=== PATIENT | female | born 1960 | race Caucasian/White ===

== ENCOUNTER → 2020-04-12 12:23 | Outpatient (BNVA) | payer MEDICARE, MEDICAID, SELFPAY | PROVIDERS: PCP Internal Medicine; Referring Provider Internal Medicine; Visit Provider Internal Medicine Endocrinology, Diabetes & Metabolism | DX: M81.0 Age-related osteoporosis without current pathological fracture (principal); Z79.899 Other long term (current) drug therapy | CPT/HCPCS: 99212 ==

== ENCOUNTER 2020-05-04 13:10 | Outpatient (REF) | payer MEDICARE, MEDICAID, SELFPAY ==
--- NOTE | 2020-05-04 13:18 | MM_ITS ---
EXAMINATION: MM SCREENING DIGITAL BREAST TOMOSYNTHESIS, BILATERAL CLINICAL INFORMATION: Left lumpectomy for breast cancer 2006. Due for yearly. COMPARISON: Mammography: 04/29/2019, 04/27/2018, 02/25/2017 TECHNIQUE: Digital breast tomosynthesis is performed in both the craniocaudal and mediolateral oblique views along with computer-aided detection (CAD). Synthesized 2D images are generated from the tomosynthesis. Additional left exaggerated CC view is provided. FINDINGS: The breasts are heterogeneously dense, which may obscure small masses (ACR BI-RADS breast composition Category c). There are post therapy changes on left with reduced breast size and stable scarring and some benign coarse calcifications. There are background fibrocystic changes again suggested similar to prior exams. There is no significant mass or architectural abnormality or interval abnormal calcifications. No significant changes. MM/MM tomosynthesis screening BI IMPRESSION: No significant changes from prior studies. Post therapy changes on left. ASSESSMENT: BI-RADS 2: Benign RECOMMENDATION: Routine annual mammography screening. This patient's information was entered into a reminder system with a target due date for their next mammogram.
== END 2020-05-04 13:11 | disposition home or self-care (01) ==
LOC: HO.MAMMO 13:10
PROVIDERS: PCP Internal Medicine; Visit Provider Surgery
DX: Z12.31 Encounter for screening mammogram for malignant neoplasm of breast (principal)
CPT/HCPCS: 77063; 77067

== ENCOUNTER → 2020-07-11 11:17 | Outpatient (BNVA) | payer OTHER, MEDICARE, SELFPAY | PROVIDERS: PCP Internal Medicine; Visit Provider Surgery | DX: C50.919 Malignant neoplasm of unspecified site of unspecified female breast (principal) | CPT/HCPCS: 99212 ==

== ENCOUNTER 2020-10-11 12:08 | Outpatient (REF) | payer OTHER, SELFPAY | END 2020-10-11 12:09 | disposition home or self-care (01) | LOC: HO.LAB 12:08 | PROVIDERS: Absent Provider Internal Medicine; PCP Internal Medicine; Visit Provider Internal Medicine Endocrinology, Diabetes & Metabolism | DX: M81.0 Age-related osteoporosis without current pathological fracture (principal) | CPT/HCPCS: 99212 ==

== ENCOUNTER 2020-10-12 11:32 | Outpatient (REF) | payer OTHER, SELFPAY ==
[2020-10-12 12:54] LABS: Alanine Aminotransferase 44 U/L (0-31); Albumin Level 3.9 g/dL (3.5-5.0); Alkaline Phosphatase 51 U/L (39-117); Anion Gap 11 (12-20); Aspartate Amino Transferase 37 U/L (5-31); Bilirubin Direct 0.3 mg/dL (0.0-0.5); Bilirubin Total 0.6 mg/dL (0.0-1.0); Blood Urea Nitrogen 17 mg/dL (9-16); Calcium 9.3 mg/dL (8.4-10.2); Carbon Dioxide 25 mmol/L (22-29); Chloride 106 mmol/L (96-108); Cholesterol 162 mg/dL; Estimated Glomerular Filt Rate 56; Glucose Fasting 106 mg/dL (60-99); HDL Cholesterol 55 mg/dL; LDL Cholesterol Calculated 91 mg/dl; Potassium 4.3 mmol/L (3.3-5.1); Sodium 138 mmol/L (135-145); Total Protein 6.7 g/dL (6.5-8.0); Triglycerides 83 mg/dL
[2020-10-12 13:02] LABS: Thyroid Stimulating Hormone 1.23 uIU/mL (0.32-4.0)
[2020-10-12 13:34] LABS: Free T4 (Free Thyroxine) 0.83 ng/dL (0.71-1.85); Vitamin D 25-OH Total 39.9 ng/mL (>30)
[2020-10-20 06:57] LABS: N-Telopeptide 12 (see note); NTXCreaRU 89 mg/dL (20-275)
== END 2020-10-12 11:33 | disposition home or self-care (01) ==
LOC: HO.LAB 11:32
PROVIDERS: Absent Provider Internal Medicine; PCP Internal Medicine; Visit Provider Internal Medicine Endocrinology, Diabetes & Metabolism
DX: M81.0 Age-related osteoporosis without current pathological fracture (principal); E78.9 Disorder of lipoprotein metabolism, unspecified
CPT/HCPCS: 36415; 80053; 80061; 80076; 82248; 82306; 82523; 84439; 84443

== ENCOUNTER 2020-12-13 10:54 | Outpatient (REF) | payer OTHER, SELFPAY ==
[2020-12-13 11:58] LABS: Blood Urea Nitrogen 18 mg/dL (9-16); Estimated Glomerular Filt Rate > 60
== END 2020-12-13 10:55 | disposition home or self-care (01) ==
LOC: HO.MDS 10:54
PROVIDERS: PCP Internal Medicine; Visit Provider Internal Medicine Endocrinology, Diabetes & Metabolism
DX: M81.0 Age-related osteoporosis without current pathological fracture (principal)
CPT/HCPCS: 36415; 82565; 84520; 96365; J3489

== ENCOUNTER 2020-12-13 12:43 | Outpatient (REF) | payer OTHER, SELFPAY ==
--- NOTE | ~2020-12-13 | XR_ITS ---
EXAMINATION: XR KNEE, BILATERAL CLINICAL INFORMATION: Instability. COMPARISON: None TECHNIQUE: 2 views each knee. FINDINGS: LEFT KNEE: There is mild reduction in the medial and patellofemoral compartment joint space without bony erosive changes. There is mild anterior suprapatellar enthesophyte. No loose bodies or joint effusion seen. No fracture or dislocation. RIGHT KNEE: There is mild loss of medial and patellofemoral compartment joint space. No acute fracture or dislocation. No periarticular spurring. The soft tissues are normal. XR/XR knee RT 2V IMPRESSION: Mild degenerative changes medial and patellar femoral compartments. No visible acute fracture, dislocation or subluxation seen. No bony erosive changes.
--- NOTE | ~2020-12-13 | XR_ITS ---
EXAMINATION: XR KNEE, BILATERAL CLINICAL INFORMATION: Instability. COMPARISON: None TECHNIQUE: 2 views each knee. FINDINGS: LEFT KNEE: There is mild reduction in the medial and patellofemoral compartment joint space without bony erosive changes. There is mild anterior suprapatellar enthesophyte. No loose bodies or joint effusion seen. No fracture or dislocation. RIGHT KNEE: There is mild loss of medial and patellofemoral compartment joint space. No acute fracture or dislocation. No periarticular spurring. The soft tissues are normal. XR/XR knee LT 2V IMPRESSION: Mild degenerative changes medial and patellar femoral compartments. No visible acute fracture, dislocation or subluxation seen. No bony erosive changes.
== END 2020-12-13 12:44 | disposition home or self-care (01) ==
LOC: HO.XRAY 12:43
PROVIDERS: Visit Provider Internal Medicine
DX: M25.362 Other instability, left knee (principal); M25.361 Other instability, right knee
CPT/HCPCS: 73560

== ENCOUNTER → 2021-01-10 10:51 | Outpatient (BNVA) | payer OTHER, SELFPAY | PROVIDERS: Visit Provider Orthopaedic Surgery | DX: M25.361 Other instability, right knee (principal); M25.362 Other instability, left knee | CPT/HCPCS: 99202 ==

== ENCOUNTER 2021-04-12 14:00 | Outpatient (RCR) | payer OTHER, SELFPAY ==
--- NOTE | 2021-05-25 10:23 | MHC.PT.DC ---
[facility] [place] Office [place] Office [place] Office [address] [phone] F: [phone] F: [phone] F: [phone] F: [phone] Physical Therapy Discharge Report Diagnosis: instability of B knees Date of Surgery: n/a Date of Evaluation: 02/08/21 Date of Discharge: 04/14/21 Treatments to Date: 9 Cancellations to Date: 0 No Shows to Date: 0 Discharge Status: Independent with HEP Discharge Summary: 04/12/21: I with HEP. Able to walk 20 minutes without rest. Able to descent stairs 1 HH assist. LEFS 71/80. Knee and hip strength 4/5 grossly. Appropriate to d/c to HEP at this time. Patient is a 60 year old R handed female who presents with s/s consistent with b/l knee instability. She is not currently working but likes to stay active walking and going to the beach. She has been having falls with increased weakness and pain as of late. PMH includes osteoporosis, cancer, hypotension, and OA. Current impairments include pain, ROM, strength, safety, independence, activity tolerance and functional mobility. Functional limitations include decreased ability to walk, stand, transfer, negotiate stairs, and perform weight bearing activities.. Patient is motivated with good rehab potential. Skilled PT will address impairments and functional limitations in order to achieve goals. Electronically signed by: Clayton Mcpherson, PT Please sign and return to therapist. Thank you for your referral.
== END 2021-05-25 10:24 | disposition home or self-care (01) ==
LOC: HO.PTCHIC 14:00
PROVIDERS: PCP Internal Medicine; Visit Provider Orthopaedic Surgery
DX: M25.361 Other instability, right knee (principal); M25.362 Other instability, left knee
CPT/HCPCS: 97110; 97162

== ENCOUNTER 2021-05-08 12:16 | Outpatient (REF) | payer OTHER, SELFPAY ==
[2021-05-08 13:42] LABS: Folate > 20.0 ng/mL (> or = 4.0); Vitamin B12 383 pg/mL (200-900)
== END 2021-05-08 12:17 | disposition home or self-care (01) ==
LOC: HO.LAB 12:16
PROVIDERS: PCP Internal Medicine; Visit Provider Psychiatry & Neurology Neurology
DX: G31.84 Mild cognitive impairment of uncertain or unknown etiology (principal)
CPT/HCPCS: 36415; 82607; 82746

== ENCOUNTER 2021-06-25 15:05 | Outpatient (REF) | payer OTHER, SELFPAY ==
--- NOTE | ~2021-06-25 | XR_ITS ---
EXAMINATION: XR HIP, LEFT CLINICAL INFORMATION: Fall. COMPARISON: None TECHNIQUE: Two views of the left hip. AP view pelvis FINDINGS: Bones and soft tissues are normal. No fracture. Alignment is anatomic. Hip joint space is maintained. XR/XR hip LT w PEL1V IMPRESSION: Normal left hip. Normal AP pelvis
[2021-06-25 16:10] LABS: MANUAL DIFF FLAG NO
[2021-06-25 16:22] LABS: Basophils Percent Auto 0.3 % (0-2); Eosinophils Absolute Auto 0.2 X10*3/uL (0.0-0.4); Eosinophils Percent Auto 1.7 % (0-4); Hematocrit 45.1 % (37.0-47.0); Hemoglobin 14.6 g/dl (12.0-16.0); Imm Gran Abs Auto 0.03 X10*3/uL (0.00-0.03); Imm Gran Pct Auto 0.3 % (0.0-0.4); Lymphocytes Absolute Auto 3.8 X10*3/uL (1.2-4.9); Lymphocytes Percent Auto 41.2 % (20-40); Mean Corpuscular HGB Conc 32.4 g/dl (31.0-35.0); Mean Corpuscular Hemoglobin 31.1 pg (27.0-33.0); Mean Platelet Volume 11.2 fL (9.4-12.3); Monocytes Absolute Auto 0.5 X10*3/uL (0.1-1.2); Monocytes Percent Auto 5.7 % (2-11); Neutrophils Absolute Auto 4.7 x10*3/uL (2.0-8.3); Neutrophils Percent Auto 50.8 % (45-73); Platelet Count 254 X10*3/uL (160-400); White Blood Count 9.2 X10*3/uL (4.8-10.8)
[2021-06-25 16:48] LABS: Alanine Aminotransferase 9 U/L (0-31); Albumin Level 3.9 g/dL (3.5-5.0); Alkaline Phosphatase 88 U/L (39-117); Anion Gap 10 (12-20); Aspartate Amino Transferase 13 U/L (5-31); Bilirubin Total 0.2 mg/dL (0.0-1.0); Blood Urea Nitrogen 13 mg/dL (9-16); Calcium 9.6 mg/dL (8.4-10.2); Carbon Dioxide 29 mmol/L (22-29); Chloride 105 mmol/L (96-108); Estimated Glomerular Filt Rate 50; Glucose Random 95 mg/dL (60-115); Potassium 4.2 mmol/L (3.3-5.1); Sodium 140 mmol/L (135-145); Total Protein 7.1 g/dL (6.5-8.0)
[2021-06-26 08:32] LABS: LDL Cholesterol Direct 55 mg/dL (<100)
== END 2021-06-25 15:06 | disposition home or self-care (01) ==
LOC: HO.HMGCLDS 15:05
PROVIDERS: PCP Internal Medicine; Visit Provider Internal Medicine
DX: M25.552 Pain in left hip (principal); E78.9 Disorder of lipoprotein metabolism, unspecified; F33.42 Major depressive disorder, recurrent, in full remission; J45.40 Moderate persistent asthma, uncomplicated; W19.XXXD Unspecified fall, subsequent encounter
CPT/HCPCS: 36415; 73502; 80053; 83721; 85025

== ENCOUNTER 2021-08-14 13:46 | Outpatient (REF) | payer OTHER, SELFPAY ==
--- NOTE | ~2021-08-14 | MM_ITS ---
EXAMINATION: BONE DENSITOMETRY CLINICAL INDICATION: Age-related osteoporosis without current pathological fracture. COMPARISON: Previous BD dated 04/29/2019 and baseline BD dated 07/16/2013. TECHNIQUE: Using a [employer] DXA System (software version: 13.1) manufactured by [employer], dual-energy x-ray absorptiometry was performed of the lumbar spine and left hip. The images are of good technical quality. Summary results are attached. FINDINGS: AP SPINE L1-L4: Current: BMD 0.780 g/cm2, Z-score -1.8, T-score -3.3, osteoporosis, 5.1% increase from previous, 7.6% increase from baseline (<5% change is not significant). Prior: BMD 0.742 g/cm2. Baseline: BMD 0.725 g/cm2. LEFT FEMUR, NECK: Current: BMD 0.488 g/cm2, Z-score -2.5, T-score -4.0, osteoporosis. Prior: BMD 0.654 g/cm2. Baseline: BMD 0.708 g/cm2. LEFT FEMUR, TOTAL: Current: BMD 0.446 g/cm2, Z-score -3.3, T-score -4.5, osteoporosis, 24.0% decrease from previous, 32.2% decrease from baseline (<5% change is not significant). Prior: BMD 0.587 g/cm2. Baseline: BMD 0.658 g/cm2. IDENTIFIED RISK FACTORS: Osteoporosis, renal, recurrent falls. Early menopause, secondary osteoporosis. HISTORY OF FRACTURE: None listed. MEDICATIONS: Calcium supplements or multivitamin, vitamin D. MM/XR DEXA axial skeleton IMPRESSION: 1. DIAGNOSIS: Osteoporosis based on the lowest T-score value of -4.5 in the total femur applying World Health Organization criteria. 2. 10-YEAR FRACTURE RISK PREDICTION, FRAX: According to the guidelines, FRAX calculation should only be performed on patients in the osteopenia bone density category. Therefore, FRAX was not performed on this patient. 3. Treatment Recommendations: NOF guidelines recommend consideration for treatment in postmenopausal women and men age 50 and older presenting with the following: -A hip or vertebral (clinical or morphometric) fracture. -T-score less than or equal to -2.5 at the femoral neck or spine after appropriate evaluation to exclude secondary causes. -Low bone mass at the hip or spine and a 10-year fracture probability by FRAX of greater than or equal to 3% for hip fracture or greater than or equal to 20% for major osteoporotic fracture based on the [place] adapted WHO algorithm. 4. Other Recommendations: All treatment decisions require clinical judgment and consideration of individual patient factors, including patient preferences, comorbidities, previous drug use, risk factors not captured in the FRAX model (e.g. frailty, falls, vitamin D deficiency, increased bone turnover, interval significant decline in bone density) and possible under or overestimation of fracture risk by FRAX. Additional medical evaluation for secondary cause of low bone mineral density may be appropriate. FUTURE SCAN RECOMMENDATION: People with diagnosed cases of osteoporosis or at high risk for fracture should have regular bone mineral density tests. For patients eligible for Medicare, routine testing is allowed once every 2 years. The testing frequency can be increased to one year for patients who have rapidly progressing disease, those who are receiving or discontinuing medical therapy to restore bone mass, or have additional risk factors.
== END 2021-08-14 13:47 | disposition home or self-care (01) ==
LOC: HO.MAMMO 13:46
PROVIDERS: PCP Internal Medicine; Visit Provider Internal Medicine Endocrinology, Diabetes & Metabolism
DX: Z13.820 Encounter for screening for osteoporosis (principal); M81.0 Age-related osteoporosis without current pathological fracture; Z78.0 Asymptomatic menopausal state; Z79.899 Other long term (current) drug therapy
CPT/HCPCS: 77080

== ENCOUNTER 2021-08-28 12:20 | Outpatient (REF) | payer OTHER, SELFPAY ==
--- NOTE | ~2021-08-28 | MM_ITS ---
EXAMINATION: MM SCREENING DIGITAL BREAST TOMOSYNTHESIS, BILATERAL CLINICAL INFORMATION: Screening. Asymptomatic. Left lumpectomy for breast cancer, 2007. COMPARISON: Mammography: 05/04/2020, 04/29/2019, 04/27/2018 TECHNIQUE: Digital breast tomosynthesis is performed in both the craniocaudal and mediolateral oblique views along with computer-aided detection (CAD). Synthesized 2D images are generated from the tomosynthesis. Additional exaggerated left CC view is provided. FINDINGS: The breasts are heterogeneously dense, which may obscure small masses (ACR BI-RADS breast composition Category c). Post therapy changes left breast are again seen with reduced breast size and minor scarring. There are some benign coarse calcifications posterior upper outer left breast. No abnormal calcifications on right. The bilateral breast parenchymal pattern is similar to prior exams. There is no developing density or interval architectural abnormality. No significant changes. MM/MM tomosynthesis screening BI IMPRESSION: No mammographic evidence of malignancy. Post therapy changes left breast, stable. ASSESSMENT: BI-RADS 2: Benign RECOMMENDATION: Routine annual mammography screening. This patient's information was entered into a reminder system with a target due date for their next mammogram.
== END 2021-08-28 12:21 | disposition home or self-care (01) ==
LOC: HO.MAMMO 12:20
PROVIDERS: Visit Provider Surgery
DX: Z12.31 Encounter for screening mammogram for malignant neoplasm of breast (principal); Z85.3 Personal history of malignant neoplasm of breast
CPT/HCPCS: 77063; 77067

== ENCOUNTER → 2021-09-06 12:38 | Outpatient (BNVA) | payer OTHER, SELFPAY | PROVIDERS: PCP Internal Medicine; Referring Provider Internal Medicine; Visit Provider Surgery | DX: Z85.3 Personal history of malignant neoplasm of breast (principal) | CPT/HCPCS: 99212 ==

== ENCOUNTER → 2021-09-28 13:47 | Outpatient (BNVA) | payer OTHER, SELFPAY | PROVIDERS: PCP Internal Medicine; Visit Provider Internal Medicine Endocrinology, Diabetes & Metabolism | DX: M81.0 Age-related osteoporosis without current pathological fracture (principal) | CPT/HCPCS: 99212 ==

== ENCOUNTER 2022-01-15 09:03 | Outpatient (REF) | payer OTHER, SELFPAY ==
[2022-01-15 11:22] LABS: MANUAL DIFF FLAG NO
[2022-01-15 11:41] LABS: Basophils Percent Auto 0.4 % (0-2); Eosinophils Absolute Auto 0.1 X10*3/uL (0.0-0.4); Eosinophils Percent Auto 0.9 % (0-4); Hematocrit 42.1 % (37.0-47.0); Hemoglobin 14.1 g/dl (12.0-16.0); Imm Gran Abs Auto 0.05 X10*3/uL (0.00-0.03); Imm Gran Pct Auto 0.6 % (0.0-0.4); Lymphocytes Absolute Auto 2.7 X10*3/uL (1.2-4.9); Mean Corpuscular HGB Conc 33.5 g/dl (31.0-35.0); Mean Corpuscular Hemoglobin 32.3 pg (27.0-33.0); Mean Corpuscular Volume 96.3 fL (80.0-98.0); Mean Platelet Volume 11.2 fL (9.4-12.3); Monocytes Absolute Auto 0.6 X10*3/uL (0.1-1.2); Monocytes Percent Auto 6.8 % (2-11); Neutrophils Absolute Auto 4.6 x10*3/uL (2.0-8.3); Neutrophils Percent Auto 57.3 % (45-73); Platelet Count 218 X10*3/uL (160-400); Red Blood Count 4.37 X10*6/uL (4.20-5.50); Red Cell Distribution Width 14.8 % (11.0-16.0); White Blood Count 8.1 X10*3/uL (4.8-10.8)
[2022-01-15 12:14] LABS: Alanine Aminotransferase 16 U/L (0-31); Alkaline Phosphatase 49 U/L (39-117); Anion Gap 14 (12-20); Aspartate Amino Transferase 19 U/L (5-31); Bilirubin Total 0.6 mg/dL (0.0-1.0); Blood Urea Nitrogen 15 mg/dL (9-16); Carbon Dioxide 25 mmol/L (22-29); Chloride 107 mmol/L (96-108); Estimated Glomerular Filt Rate 51; Glucose Random 97 mg/dL (60-115); Potassium 3.9 mmol/L (3.3-5.1); Sodium 142 mmol/L (135-145); Total Protein 6.9 g/dL (6.5-8.0)
[2022-01-16 07:41] LABS: LDL Cholesterol Direct 69 mg/dL (<100)
== END 2022-01-15 09:04 | disposition home or self-care (01) ==
LOC: HO.HMGCLDS 09:03
PROVIDERS: PCP Internal Medicine; Visit Provider Internal Medicine
DX: J45.40 Moderate persistent asthma, uncomplicated (principal); M81.0 Age-related osteoporosis without current pathological fracture; E78.9 Disorder of lipoprotein metabolism, unspecified
CPT/HCPCS: 36415; 80053; 83721; 85025

== ENCOUNTER 2022-01-24 20:15 | Emergency (ER) | payer OTHER, SELFPAY ==
--- NOTE | ~2022-01-24 | CT_ITS ---
EXAMINATION: NONCONTRAST HEAD CT NONCONTRAST CERVICAL SPINE CT INDICATION INFORMATION: Trauma COMPARISON: 03/07/20 TECHNIQUE: Separate noncontrast CT examinations of the head and cervical spine were performed. Coronal and sagittal images were created for each examination at the technologist workstation. This CT examination was performed using dose optimization techniques as appropriate, variously including the following: *Automated exposure control *Adjustment of mA and/or kV according to patient size (this includes techniques or standardized protocols for targeted exams where dose is matched to indication/reason for exam; i.e. extremities or head) *Use of iterative reconstruction technique DLP: 831 mGy-cm FINDINGS: Head: There is no evidence of acute intracranial hemorrhage or territorial infarction. No abnormal mass effect or midline shift is seen. Watkins to white matter differentiation is well preserved. No extra-axial fluid collections are identified. No hydrocephalus. No significant volume loss. There is no abnormal attenuation within the brain parenchyma. No acute osseous or soft tissue abnormality. The mastoid air cells and visualized portions of the paranasal sinuses are well aerated. Cervical spine: There is anatomic alignment of the vertebral bodies and posterior elements. The atlantoaxial and atlantooccipital articulations are intact. Vertebral body heights are maintained. There is multilevel intervertebral disc space narrowing with endplate osteophyte formation and facet arthropathy. No evidence of acute fracture. No prevertebral soft tissue swelling. Visualized portions of the lung apices are unremarkable. The thyroid gland is unremarkable. CT/CT cervical spine wo con IMPRESSION: 1. No acute intracranial findings. 2. No fracture or malalignment of the cervical spine. Mild degenerative changes.
--- NOTE | ~2022-01-24 | CT_ITS ---
EXAMINATION: NONCONTRAST HEAD CT NONCONTRAST CERVICAL SPINE CT INDICATION INFORMATION: Trauma COMPARISON: 03/07/20 TECHNIQUE: Separate noncontrast CT examinations of the head and cervical spine were performed. Coronal and sagittal images were created for each examination at the technologist workstation. This CT examination was performed using dose optimization techniques as appropriate, variously including the following: *Automated exposure control *Adjustment of mA and/or kV according to patient size (this includes techniques or standardized protocols for targeted exams where dose is matched to indication/reason for exam; i.e. extremities or head) *Use of iterative reconstruction technique DLP: 831 mGy-cm FINDINGS: Head: There is no evidence of acute intracranial hemorrhage or territorial infarction. No abnormal mass effect or midline shift is seen. Watkins to white matter differentiation is well preserved. No extra-axial fluid collections are identified. No hydrocephalus. No significant volume loss. There is no abnormal attenuation within the brain parenchyma. No acute osseous or soft tissue abnormality. The mastoid air cells and visualized portions of the paranasal sinuses are well aerated. Cervical spine: There is anatomic alignment of the vertebral bodies and posterior elements. The atlantoaxial and atlantooccipital articulations are intact. Vertebral body heights are maintained. There is multilevel intervertebral disc space narrowing with endplate osteophyte formation and facet arthropathy. No evidence of acute fracture. No prevertebral soft tissue swelling. Visualized portions of the lung apices are unremarkable. The thyroid gland is unremarkable. CT/CT head/brain wo con IMPRESSION: 1. No acute intracranial findings. 2. No fracture or malalignment of the cervical spine. Mild degenerative changes.
[2022-01-24 20:21] VITALS: BP 126/60; PULSE 90; O2SAT 95
[2022-01-24 20:30] VITALS: BP 118/71; PULSE 84; RESP 18; TEMP 37.6; O2SAT 96; BMI 19.8
--- NOTE | 2022-01-24 20:33 | ED_ITS ---
HPI - Head Injury General Chief complaint: Fall Stated complaint: fall Time Seen by Provider: 01/24/22 20:26 Source: patient Mode of arrival: EMS Limitations: no limitations History of Present Illness HPI Narrative: this is 61 years old the female presented to the emergency department after a fall she states that she tripped and fell hit head in a ground no LOC. She does not take any anticoagulant MD Complaint: head injury Onset (ago): hour(s) (1) Mechanism of Injury: fall Place: home Loss of Consciousness: no Location of injury: occipital Severity: moderate Quality: sharp Radiation: none Other Injuries: none Related Data Home Medications Medication Instructions Recorded Confirmed clonazepam 1 mg tablet 1 mg PO BID 03/17/20 01/15/22 escitalopram oxalate 10 mg tablet 10 mg PO DAILY 03/17/20 01/15/22 mirtazapine 15 mg tablet 15 mg PO DAILY 03/17/20 01/15/22 flu vac qs 2019(4 yr up)CD(PF) 60 ml IM 06/13/20 01/15/22 mcg(15 mcgx4)/0.5 mL IM syringe folic acid 1 mg tablet 1 mg PO DAILY 11/14/20 01/15/22 clonazepam 1 mg tablet (Klonopin) 1 mg PO BEDTIME 09/28/21 01/15/22 Previous Rx's Medication Instructions Recorded calcium citrate 500 mg PO BID 90 days #360 tabs 09/28/21 cholecalciferol (vitamin D3) 50 50 mcg PO DAILY 90 days #90 caps 09/28/21 mcg (2,000 unit) capsule [id number] 210 mg/2.34 210 mg (2.34 mL) subcut .COMPLEX 09/28/21 mL(105 mg/1.17 mL x2)subcutaneous 12 months #2.34 mL syringe (Evenity) simvastatin 80 mg tablet 80 mg PO DAILY 90 days #90 tabs 12/14/21 ipratropium 20 mcg-albuterol 100 1 puff inhalation QID #12 mL 12/25/21 mcg/actuation mist for inhalation (Combivent Respimat) albuterol sulfate 2.5 mg/3 mL 2.5 mg (3 mL) inhalation Q4H PRN 01/15/22 (0.083 %) solution for nebulization bronchospasm 90 days #90 mL albuterol sulfate 90 mcg/actuation 1 inh inhalation QID PRN shortness 01/15/22 aerosol inhaler (ProAir HFA) of breath or wheezing 30 days #18 grams Allergies Allergy/AdvReac Type Severity Reaction Status Date / Time oseltamivir [From TAMIFLU] Allergy Unknown SEVERE Verified 01/15/22 08:40 VOMITING,SHAKING, severe vomiting, vomiting Penicillins [PENICILLINS] Allergy Unknown RASH- A Verified 01/15/22 08:40 CHILD Review of Systems Constitutional: Constitutional: Reports no additional constitutional complaints Cardiovascular: Cardiovascular: Reports no additional cardiovascular complaints Gastrointestinal: Gastrointestinal: Reports no additional gastrointestinal complaints Allergic/Immunologic: Allergic/Immunologic: Reports no additional allergic/immunologic complaints PMFSH Past Medical History Medical History Asthma, moderate persistent Breast cancer Chronic low back pain Depression, major, recurrent Dyspepsia Lipid disorder Osteoporosis Surgical History H/O colectomy H/O colonoscopy History of D&C History of lumpectomy of left breast (~2006) History of repair of rotator cuff History of tonsillectomy History of tubal ligation Family History Family History Father Heart problem CVD (cardiovascular disease) Mother Myocardial infarct Social History Social History Housing: Apartment Alcohol intake: former Patient Tobacco Use Status: Never used Tobacco Years Smoked: 25 + e-Cigarette/Vaping Use: Never Used Substance Use Type: Marijuana Advance Directives: No Advance Directives Information Provided: No service: No Current occupational status: disabled Current occupation: Right handed Cognitive needs: No Hearing needs: No Vision needs: Yes Physical Exam Vital Signs: Vital Signs: Last Vital Signs Temp 99.6 F 01/24/22 20:30 Pulse 80 01/24/22 22:42 Resp 18 01/24/22 22:42 BP 117/66 01/24/22 22:42 Pulse Ox 96 01/24/22 22:42 O2 Del Method 01/24/22 22:42 BMI result Body Mass Index 19.8 Const: General: cooperative and healthy appearing Nutritional Appearance: well nourished Orientation/consciousness: patient oriented x3 HEENT: Head: Yes normal to inspection General nose exam: Normal external nose present Face and sinus: Yes normal facial exam Mouth: Normal oral and palatal mucosa present Teeth and gingiva: dentition normal Throat: Yes posterior oropharynx normal Neck: Neck: Yes normal visual inspection and Yes full ROM Thyroid: Thyroid normal Chest: Chest palpation & inspection: normal inspection of the chest and normal palpation of entire chest wall Resp: Effort & Inspection: normal respiratory effort Auscultation: clear to auscultation bilaterally Cardio: Jugular venous distension: no JVD Rate: regular rate Rhythm: regular rhythm GI: Inspection: Yes normal to inspection Palpation (GI): Soft to palpation, not firm and nontender Auscultation: normal bowel sounds : General: Yes no CVA tenderness Back/Spine/Pelvis: Back: no CVA tenderness Skin: General skin exam: no rashes or lesions noted, elasticity normal and turgor normal Lesions: no lesions Rashes: no rashes Neuro: General: patient oriented x3 Cognition (Neuro): normal cognition Course Reevaluation(s) Reevaluation #1: CT negative head the C-spine at this point we could discharge the patient home,repeat vital normal will d/c home MDM - Head Injury MDM Narrative Medical decision making narrative: this is clearly a mechanical fall we are going to get head CT and C-spine, if negative will discharge the patient home Imaging Data CT scan - head: Radiologist's impression: No hydrocephalus. No significant volume loss. There is no abnormal attenuation within the brain parenchyma. No acute osseous or soft tissue abnormality. The mastoid air cells and visualized portions of the paranasal sinuses are well aerated. Cervical spine: There is anatomic alignment of the vertebral bodies and posterior elements. The atlantoaxial and atlantooccipital articulations are intact. Vertebral body heights are maintained. There is multilevel intervertebral disc space narrowing with endplate osteophyte formation and facet arthropathy. No evidence of acute fracture. No prevertebral soft tissue swelling. Visualized portions of the lung apices are unremarkable. The thyroid gland is unremarkable. CT/CT head/brain wo con IMPRESSION: 1. No acute intracranial findings. 2. No fracture or malalignment of the cervical spine.? Mild degenerative changes. ? Dictated By: Favio Gutierrez MD Signed By: <Electronically signed by Favio Gutierrez MD in OV> 01/24/222134 DD/ 49 Discharge Plan Discharge Clinical Impression: Head injury Patient Disposition: Home, Self-Care Instructions: Head Injury (ED) Prescriptions: No Action simvastatin 80 mg tablet 80 mg PO DAILY 90 Days Qty: 90 1RF Combivent Respimat 20-100 mcg/actuation mist 1 puff inhalation QID Qty: 12 0RF mirtazapine 15 mg tablet 15 mg PO DAILY escitalopram oxalate 10 mg tablet 10 mg PO DAILY clonazepam 1 mg tablet 1 mg PO BID Flucelvax Quad 1649-0507 (PF) 60 mcg (15 mcg x 4)/0.5 mL syringe IM folic acid 1 mg tablet 1 mg PO DAILY albuterol sulfate [ProAir HFA] 90 mcg/actuation HFA aerosol inhaler 1 inh inhalation QID PRN (Reason: shortness of breath or wheezing) 30 Days Qt y: 18 0RF albuterol sulfate 2.5 mg /3 mL (0.083 %) solution for nebulization 2.5 mg inhalation Q4H PRN (Reason: bronchospasm) 90 Days Qty: 90 0RF clonazepam [Klonopin] 1 mg tablet 1 mg PO BEDTIME Rx Instructions: administer 30 minutes before bedtime cholecalciferol (vitamin D3) 50 mcg (2,000 unit) capsule 50 mcg PO DAILY 90 Days Qty: 90 2RF calcium citrate 250 mg calcium tablet 500 mg PO BID 90 Days Qty: 360 2RF Evenity 210mg/2.34mL ( 105mg/1.17mLx2) syringe 210 mg subcut .COMPLEX 360 Days Qty: 2.34 0RF Rx Instructions: 210 mg subcut once monthly for 1 yr; Referrals: Adam Gil MD [Primary Care Provider] - 2 days (as needed) Interventions: ED Discharge Assessment Last Done: 01/24/22 22:43 Discharge Date/Time: 01/24/22 22:43
[2022-01-24] MEDS: Ondansetron ODT 4 MG TAB.RAPDIS TRANSLINGU (20:35)
[2022-01-24 22:42] VITALS: BP 117/66; PULSE 80; RESP 18; O2SAT 96
== END 2022-01-24 22:43 | disposition home or self-care (01) ==
PROVIDERS: Emergency Provider Emergency Medicine; PCP Internal Medicine
DX: S09.90XA Unspecified injury of head, initial encounter (principal); W01.0XXA Fall on same level from slipping, tripping and stumbling without subsequent striking against object, initial encounter; Y93.9 Activity, unspecified; Y92.039 Unspecified place in apartment as the place of occurrence of the external cause; Y99.9 Unspecified external cause status
CPT/HCPCS: 70450; 72125; 99283; 99284

== ENCOUNTER → 2022-03-08 12:48 | Outpatient (BNVA) | payer OTHER, SELFPAY | PROVIDERS: PCP Internal Medicine; Visit Provider Internal Medicine Endocrinology, Diabetes & Metabolism | DX: M81.0 Age-related osteoporosis without current pathological fracture (principal) | CPT/HCPCS: 96372; J3111 ==

== ENCOUNTER → 2022-04-08 13:11 | Outpatient (BNVA) | payer OTHER, SELFPAY | PROVIDERS: PCP Internal Medicine; Visit Provider Internal Medicine | DX: M81.0 Age-related osteoporosis without current pathological fracture (principal) | CPT/HCPCS: 96372; J3111 ==

== ENCOUNTER 2022-04-16 12:45 | Outpatient (REF) | payer OTHER, SELFPAY ==
--- NOTE | 2022-04-16 12:50 | EEG_ITS ---
PROCEDURE PERFORMED: 24-hour ambulatory EEG. Waking background activity consists of a symmetrical 9 hertz posterior alpha frequency, intermixed anteriorly with low-voltage fast frequencies. Drowsiness is characterized by diffuse theta slowing. Symmetrical frontal central sleep spindles and vertex sharp transients developed over sleep. Arousals are unremarkable. Throughout most of the record, there are some sharp configuration theta discharges seen from the left temporal region and occasional sharp waves with phase reversal at T3 and 1 at P3 are noted. The patient remains asymptomatic. IMPRESSION: This 24-hour ambulatory EEG is considered abnormal due to a left temporal sharp theta discharge focus with phase reversal primarily at T3, which could correlate with an underlying focus for seizure disorder. MD VASYL Graves/JOSÉ / [id number]
== END 2022-04-16 12:46 | disposition home or self-care (01) ==
LOC: HO.NEURO 12:45
PROVIDERS: PCP Internal Medicine; Visit Provider Psychiatry & Neurology Neurology
DX: R55 Syncope and collapse (principal)
CPT/HCPCS: 95708

== ENCOUNTER → 2022-04-23 13:25 | Outpatient (BNVA) | payer OTHER, SELFPAY | PROVIDERS: PCP Internal Medicine; Visit Provider Internal Medicine Endocrinology, Diabetes & Metabolism | DX: M81.0 Age-related osteoporosis without current pathological fracture (principal) | CPT/HCPCS: 99212 ==

== ENCOUNTER → 2022-05-07 13:08 | Outpatient (BNVA) | payer OTHER, SELFPAY | PROVIDERS: PCP Internal Medicine; Visit Provider Internal Medicine Endocrinology, Diabetes & Metabolism | DX: M81.0 Age-related osteoporosis without current pathological fracture (principal) | CPT/HCPCS: 96372; J3111 ==

== ENCOUNTER → 2022-06-06 12:45 | Outpatient (BNVA) | payer OTHER, SELFPAY | PROVIDERS: PCP Internal Medicine; Visit Provider Internal Medicine Endocrinology, Diabetes & Metabolism | DX: M81.0 Age-related osteoporosis without current pathological fracture (principal) | CPT/HCPCS: 96372; J3111 ==

== ENCOUNTER → 2022-06-07 12:39 | Outpatient (REF) | payer OTHER, SELFPAY ==
--- NOTE | 2022-06-07 12:43 | HM_ITS ---
* Total monitoring time about 2 days. * Underlying rhythm is sinus. Average ventricular rate 83/Min. Range 66 to 149/Min. * Rare supraventricular ectopy. Very brief runs, 2 episodes. * No sustained arrhythmias. * No significant pauses or AV blocks. * Patient diary not submitted. MTDD
== END ==
LOC: HO.CARD 12:39
PROVIDERS: PCP Internal Medicine; Visit Provider Psychiatry & Neurology Neurology
DX: R55 Syncope and collapse (principal)
CPT/HCPCS: 93225

== ENCOUNTER → 2022-07-09 11:23 | Outpatient (BNVA) | payer OTHER, SELFPAY | PROVIDERS: PCP Internal Medicine; Visit Provider Internal Medicine Endocrinology, Diabetes & Metabolism | DX: M81.0 Age-related osteoporosis without current pathological fracture (principal) | CPT/HCPCS: 96372; J3111 ==

== ENCOUNTER 2022-07-23 10:21 | Outpatient (REF) | payer OTHER, SELFPAY ==
[2022-07-23 11:29] LABS: MANUAL DIFF FLAG NO
[2022-07-23 11:38] LABS: Basophils Percent Auto 0.4 % (0-2); Eosinophils Percent Auto 0.4 % (0-4); Hematocrit 46.6 % (37.0-47.0); Hemoglobin 15.5 g/dl (12.0-16.0); Imm Gran Abs Auto 0.03 X10*3/uL (0.00-0.03); Imm Gran Pct Auto 0.3 % (0.0-0.4); Lymphocytes Absolute Auto 2.9 X10*3/uL (1.2-4.9); Lymphocytes Percent Auto 31.7 % (20-40); Mean Corpuscular HGB Conc 33.3 g/dl (31.0-35.0); Mean Corpuscular Hemoglobin 31.8 pg (27.0-33.0); Mean Corpuscular Volume 95.5 fL (80.0-98.0); Mean Platelet Volume 11.2 fL (9.4-12.3); Monocytes Absolute Auto 0.6 X10*3/uL (0.1-1.2); Monocytes Percent Auto 6.6 % (2-11); Neutrophils Absolute Auto 5.6 x10*3/uL (2.0-8.3); Neutrophils Percent Auto 60.6 % (45-73); Platelet Count 246 X10*3/uL (160-400); Red Blood Count 4.88 X10*6/uL (4.20-5.50); Red Cell Distribution Width 14.1 % (11.0-16.0); White Blood Count 9.2 X10*3/uL (4.8-10.8)
[2022-07-23 11:58] LABS: Alanine Aminotransferase 9 U/L (0-31); Albumin Level 4.1 g/dL (3.5-5.0); Alkaline Phosphatase 56 U/L (39-117); Anion Gap 15 (12-20); Aspartate Amino Transferase 16 U/L (5-31); Bilirubin Total 0.8 mg/dL (0.0-1.0); Blood Urea Nitrogen 14 mg/dL (9-16); Calcium 9.5 mg/dL (8.4-10.2); Carbon Dioxide 24 mmol/L (22-29); Chloride 106 mmol/L (96-108); Estimated Glomerular Filt Rate > 60; Glucose Random 97 mg/dL (60-115); Potassium 4.4 mmol/L (3.3-5.1); Sodium 141 mmol/L (135-145)
[2022-07-25 01:49] LABS: LDL Cholesterol Direct 70 mg/dL (<100)
== END 2022-07-23 10:22 | disposition home or self-care (01) ==
LOC: HO.HMGCLDS 10:21
PROVIDERS: PCP Internal Medicine; Visit Provider Internal Medicine
DX: F33.9 Major depressive disorder, recurrent, unspecified (principal); E78.9 Disorder of lipoprotein metabolism, unspecified; F41.1 Generalized anxiety disorder; J45.40 Moderate persistent asthma, uncomplicated; M81.0 Age-related osteoporosis without current pathological fracture
CPT/HCPCS: 36415; 80053; 83721; 85025

== ENCOUNTER → 2022-08-09 12:59 | Outpatient (BNVA) | payer OTHER, SELFPAY | PROVIDERS: PCP Internal Medicine; Visit Provider Internal Medicine Endocrinology, Diabetes & Metabolism | DX: M81.0 Age-related osteoporosis without current pathological fracture (principal) | CPT/HCPCS: 96372; J3111 ==

== ENCOUNTER 2022-09-02 12:00 | Outpatient (REF) | payer OTHER, SELFPAY ==
--- NOTE | ~2022-09-02 | MM_ITS ---
EXAMINATION: MM SCREENING DIGITAL BREAST TOMOSYNTHESIS, BILATERAL CLINICAL INFORMATION: Due for yearly. Remote left lumpectomy 2006. COMPARISON: Mammography: 08/28/2021, 05/04/2020, 04/29/2019, 04/27/2018 TECHNIQUE: Digital breast tomosynthesis is performed in both the craniocaudal and mediolateral oblique views along with computer-aided detection (CAD). Synthesized 2D images are generated from the tomosynthesis. FINDINGS: The breasts are heterogeneously dense, which may obscure small masses (ACR BI-RADS breast composition Category c). Parenchymal pattern is similar to prior studies. There are scattered bilateral asymmetries similar to prior exams with no significant mass or developing density or architectural abnormality. Post therapy changes left breast are again noted with reduced breast size and scarring and scattered mildly dystrophic calcifications. There are no abnormal calcifications in either breast. The axilla are unremarkable. No significant changes. MM/MM tomosynthesis screening BI IMPRESSION: No mammographic evidence of malignancy. ASSESSMENT: BI-RADS 2: Benign RECOMMENDATION: Routine annual mammography screening. This patient's information was entered into a reminder system with a target due date for their next mammogram.
== END 2022-09-02 12:01 | disposition home or self-care (01) ==
LOC: HO.MAMMO 12:00
PROVIDERS: Visit Provider Internal Medicine
DX: Z12.31 Encounter for screening mammogram for malignant neoplasm of breast (principal)
CPT/HCPCS: 77063; 77067

== ENCOUNTER → 2022-09-10 12:56 | Outpatient (BNVA) | payer OTHER, SELFPAY | PROVIDERS: PCP Internal Medicine; Visit Provider Surgery | DX: Z85.3 Personal history of malignant neoplasm of breast (principal) | CPT/HCPCS: 99212 ==

== ENCOUNTER → 2022-09-17 12:45 | Outpatient (BNVA) | payer OTHER, SELFPAY | PROVIDERS: PCP Internal Medicine; Visit Provider Internal Medicine Endocrinology, Diabetes & Metabolism | DX: M81.0 Age-related osteoporosis without current pathological fracture (principal); Z79.899 Other long term (current) drug therapy | CPT/HCPCS: 96372; J3111 ==

== ENCOUNTER → 2022-10-23 12:48 | Outpatient (BNVA) | payer OTHER, SELFPAY | PROVIDERS: PCP Internal Medicine; Visit Provider Internal Medicine Endocrinology, Diabetes & Metabolism | DX: M81.0 Age-related osteoporosis without current pathological fracture (principal) | CPT/HCPCS: 96372; J3111 ==

== ENCOUNTER → 2022-11-26 12:48 | Outpatient (BNVA) | payer OTHER, SELFPAY | PROVIDERS: PCP Internal Medicine; Visit Provider Internal Medicine Endocrinology, Diabetes & Metabolism | DX: M81.0 Age-related osteoporosis without current pathological fracture (principal) | CPT/HCPCS: 96372; J3111 ==

== ENCOUNTER → 2022-12-20 12:05 | Outpatient (BNVA) | payer OTHER, SELFPAY | PROVIDERS: PCP Internal Medicine; Visit Provider Internal Medicine Endocrinology, Diabetes & Metabolism | DX: M81.0 Age-related osteoporosis without current pathological fracture (principal) | CPT/HCPCS: 99212 ==

== ENCOUNTER 2022-12-27 12:57 | Outpatient (AMB) | payer OTHER, SELFPAY ==
--- NOTE | 2022-12-27 13:15 | AM.OFFVISNUR ---
Intake Intake Visit Reasons: Evenity Allergies oseltamivir [From TAMIFLU] Allergy (Unknown, Verified 12/20/22 12:29) SEVERE VOMITING,SHAKING, severe vomiting, vomiting Penicillins [PENICILLINS] Allergy (Unknown, Verified 12/20/22 12:29) RASH- A CHILD Office Meds romosozumab-aqqg Performing Provider: Arnav Mas MD Administered by: Daniel Lance RN on 12/27/22 13:05 Dose Route Admin Location Lot Number Expiration Date [facility] Surface Hydrologist 210 mg subcut right arm and left abdome [id number] 03/15/25 24228-527-93 AMGEN Comments: consent obtained for evenity injections. Coding Diagnoses Assessment & Plan Assessment & Plan Orders: Orders AMB Romosozumab Injection Patient Supplied Today M81.0 - Age-related osteoporosis without current pathological fracture
== END 2022-12-27 14:11 | disposition home or self-care (01) ==
PROVIDERS: PCP Internal Medicine; Visit Provider Internal Medicine Endocrinology, Diabetes & Metabolism
DX: M81.0 Age-related osteoporosis without current pathological fracture (principal)

== ENCOUNTER → 2022-12-27 12:57 | Outpatient (BNVA) | payer OTHER, SELFPAY | PROVIDERS: PCP Internal Medicine; Visit Provider Internal Medicine Endocrinology, Diabetes & Metabolism | DX: M81.0 Age-related osteoporosis without current pathological fracture (principal) | CPT/HCPCS: 96372; J3111 ==

== ENCOUNTER 2023-01-22 10:37 | Outpatient (AMB) | payer OTHER, SELFPAY ==
[2023-01-22 10:38] VITALS: BP 112/68; PULSE 105; O2SAT 95; BMI 18.7
--- NOTE | 2023-01-22 10:38 | A.OFFPC_ITS ---
Vital Signs 01/22/23 10:38 Height 5 ft 7 in Weight 119 lb 8 oz BMI 18.7 BP 112/68 Blood Pressure Location Rt brachial Position Sitting Pulse 105 H Pulse Source Pulse Oximeter Pulse Oximetry (%) 95 Oxygen Delivery Method Room Air Intake Visit Reasons: EP 6 month F/u Allergies oseltamivir [From TAMIFLU] Allergy (Unknown, Verified 01/22/23 10:38) SEVERE VOMITING,SHAKING, severe vomiting, vomiting Penicillins [PENICILLINS] Allergy (Unknown, Verified 01/22/23 10:38) RASH- A CHILD Medication List - Last Reconciled 01/22/23 by Adam Gil MD albuterol sulfate 90 mcg/actuation (ProAir HFA) 1 inh inhalation QID PRN 30 days albuterol sulfate 2.5 mg (3 mL) inhalation Q4H PRN 90 days clonazepam 0.5 mg PO BID PRN denosumab (Prolia) 60 mg subcut [id number] escitalopram oxalate 10 mg PO DAILY flu vac qs 2019(4 yr up)CD(PF) mL IM folic acid 1 mg PO DAILY ipratropium-albuterol 20-100 mcg/actuation (Combivent Respimat) 1 puff inhalation QID mirtazapine 15 mg PO DAILY romosozumab-aqqg (Evenity) 210 mg (2.34 mL) subcut .monthly simvastatin 80 mg PO DAILY 90 days Tobacco use date assessed: 01/22/23 Fall risk assessment: 2 + Falls in past year Last assessed Fall Risk: 01/22/23 Dental Screening Dental Screen Date: 01/22/23 Did you have a dental problem in the last 6 months where you did not have access to dental care?: No Was dental information given to patient?: No HPI EP 6 month F/u HPI Details Patient is 62-year-old female She was last seen July of this year Patient have a COPD and she is using Combivent 4 times a day as well as Ventolin inhaler as needed Patient is doing well with these inhalers. Lipid disorder: Continue simvastatin 80 mg daily, patient has no side effects she is tolerating medication. Due for labs to be done fasting as soon as possible. Psychiatric care through Psychiatry She is also seeing Endocrinology for the management of osteoporosis. Follow-up 4 months [facility] Medical History Asthma, moderate persistent Breast cancer Chronic low back pain Depression, major, recurrent Dyspepsia Lipid disorder Osteoporosis Surgical History H/O colectomy H/O colonoscopy History of D&C History of lumpectomy of left breast (~2006) History of repair of rotator cuff History of tonsillectomy History of tubal ligation Family History Father Heart problem CVD (cardiovascular disease) Mother Myocardial infarct Social History Household Members: None Housing: Apartment Alcohol intake: former Patient Tobacco Use Status: Former Tobacco user Years Smoked: 25 + e-Cigarette/Vaping Use: Never Used Substance Use Type: Marijuana service: No Current occupational status: disabled Current occupation: Right handed Cognitive needs: No Hearing needs: No Vision needs: Yes Questionnaire PHQ-9 Over the last 2 weeks, how often have you been bothered by any of the following problems? 49698 - PHQ-9 Billing: Patient declined-do not bill Source: Developed by Drs. Arnav Lynn, Patricia Elena, Carlos Argueta and colleagues, with an educational latosha from [employer]. Thrive Questionnaire Date Thrive assessed: 07/23/22 AUDIT C Alcohol Use Questionnaire (AUDIT-C) 1. How often do you have a drink containing alcohol?: Never 3. How often do you have six or more drinks on one occasion?: Never Total Score: 0 Score Reviewed/Action Taken: Yes MADIHA-7 AMB Questionnaire MADIHA-7 Date MADIHA - 7 assessed: 07/23/22 Source: Developed by Drs. Arnav Lynn, Carlos Kc and colleagues, with an educational latosha from [employer]. Review of Systems Const Denies chills and Denies fever(s) ENT Denies epistaxis and Denies nasal discharge Card Denies chest pain Resp Denies chest congestion, Denies cough and Denies hemoptysis GI Denies diarrhea and Denies nausea Skin/Breast Denies rash Neuro Reports no additional complaints Psych Reports no additional complaints Endo Reports no additional complaints Physical exam (Primary Care) Vital Signs: Last Vital Signs Pulse 105 H 01/22/23 10:38 BP 112/68 01/22/23 10:38 Pulse Ox 95 01/22/23 10:38 Oxygen Delivery Method Room Air 01/22/23 10:38 BMI result Body Mass Index 18.7 Tobacco/Smoking Status: Tobacco use Status Tobacco use date assessed 01/22/23 01/22/23 10:40 Patient Tobacco Use Status Former Tobacco user 01/22/23 10:40 e-Cigarette/Vaping Use Never Used 01/22/23 10:40 Thrive Assessment: Date of Thrive Assessment Date Thrive assessed 07/23/22 01/22/23 10:40 Const General: cooperative, comfortable and no acute distress Orientation/consciousness: patient oriented x3 HENMT Head: Yes normocephalic Eyes General: appearance normal, both eyes and all related structures Neck Neck: Yes supple Resp Effort & Inspection: normal respiratory effort, no cough and no stridor Cardio Rhythm: regular rhythm Heart sounds: S1 normal heart sound present and S2 normal heart sound present Skin General skin exam: turgor normal Neuro General: patient oriented x3, tone normal and moves all extremities Extrem Right lower extremity: no edema Left lower extremity: no edema Assessment and Plan Assessment & Plan (1) Asthma, moderate persistent: Code(s): J45.40 - Moderate persistent asthma, uncomplicated Qualifiers: Asthma complication type: uncomplicated Qualified Code(s): J45.40 - Moderate persistent asthma, uncomplicated (2) Osteoporosis: Code(s): M81.0 - Age-related osteoporosis without current pathological fracture (3) Lipid disorder: Code(s): E78.9 - Disorder of lipoprotein metabolism, unspecified (4) Depression, major, recurrent: Code(s): F33.9 - Major depressive disorder, recurrent, unspecified Plan Patient is 62-year-old female She was last seen July of this year Patient have a COPD-asthma overlap, and she is using Combivent 4 times a day as well as Ventolin inhaler as needed Patient is doing well with these inhalers. Lipid disorder: Continue simvastatin 80 mg daily, patient has no side effects she is tolerating medication. Due for labs to be done fasting as soon as possible. Psychiatric care through Psychiatry She is also seeing Endocrinology for the management of osteoporosis. Follow-up 4 months Orders: Orders Comprehensive [place]. Panel Fast Today E78.9 - Disorder of lipoprotein metabolism, unspecified, F33.9 - Major depressive disorder, recurrent, unspecified, J45.40 - Moderate persistent asthma, uncomplicated, M81.0 - Age-related osteoporosis without current pathological fracture Complete Blood Count Auto Diff Today E78.9 - Disorder of lipoprotein metabolism, unspecified, F33.9 - Major depressive disorder, recurrent, unspecified, J45.40 - Moderate persistent asthma, uncomplicated, M81.0 - Age-related osteoporosis without current pathological fracture Lipid Panel Today E78.9 - Disorder of lipoprotein metabolism, unspecified Coding Level of Care Code Est Pt Level 4 (26850) Diagnoses Asthma, moderate persistent J45.40 Asthma complication type: uncomplicated Osteoporosis M81.0 Lipid disorder E78.9 Depression, major, recurrent F33.9
== END 2023-01-22 11:12 | disposition home or self-care (01) ==
PROVIDERS: Visit Provider Internal Medicine
DX: J45.40 Moderate persistent asthma, uncomplicated (principal); M81.0 Age-related osteoporosis without current pathological fracture; E78.9 Disorder of lipoprotein metabolism, unspecified; F33.9 Major depressive disorder, recurrent, unspecified
CPT/HCPCS: 99214

== ENCOUNTER 2023-01-23 09:12 | Outpatient (REF) | payer OTHER, SELFPAY ==
[2023-01-23 11:25] LABS: MANUAL DIFF FLAG NO
[2023-01-23 12:01] LABS: Basophils Percent Auto 0.4 % (0-2); Eosinophils Absolute Auto 0.1 X10*3/uL (0.0-0.4); Eosinophils Percent Auto 0.7 % (0-4); Hematocrit 45.8 % (37.0-47.0); Imm Gran Abs Auto 0.03 X10*3/uL (0.00-0.03); Imm Gran Pct Auto 0.3 % (0.0-0.4); Lymphocytes Absolute Auto 3.5 X10*3/uL (1.2-4.9); Lymphocytes Percent Auto 36.3 % (20-40); Mean Corpuscular HGB Conc 32.8 g/dl (31.0-35.0); Mean Corpuscular Hemoglobin 32.1 pg (27.0-33.0); Mean Corpuscular Volume 98.1 fL (80.0-98.0); Mean Platelet Volume 11.6 fL (9.4-12.3); Monocytes Absolute Auto 0.5 X10*3/uL (0.1-1.2); Monocytes Percent Auto 5.5 % (2-11); Neutrophils Absolute Auto 5.4 x10*3/uL (2.0-8.3); Neutrophils Percent Auto 56.8 % (45-73); Platelet Count 221 X10*3/uL (160-400); Red Blood Count 4.67 X10*6/uL (4.20-5.50); Red Cell Distribution Width 15.4 % (11.0-16.0); White Blood Count 9.6 X10*3/uL (4.8-10.8)
[2023-01-23 12:46] LABS: Alanine Aminotransferase 8 U/L (0-31); Albumin Level 3.9 g/dL (3.5-5.0); Alkaline Phosphatase 54 U/L (39-117); Anion Gap 11 (12-20); Aspartate Amino Transferase 16 U/L (5-31); Bilirubin Total 0.6 mg/dL (0.0-1.0); Blood Urea Nitrogen 10 mg/dL (9-16); Calcium 9.3 mg/dL (8.4-10.2); Carbon Dioxide 27 mmol/L (22-29); Chloride 107 mmol/L (96-108); Cholesterol 133 mg/dL; Estimated Glomerular Filt Rate 59; Glucose Fasting 105 mg/dL (60-99); HDL Cholesterol 53 mg/dL; LDL Cholesterol Calculated 64 mg/dl; Potassium 4.3 mmol/L (3.3-5.1); Sodium 141 mmol/L (135-145); Total Protein 7.3 g/dL (6.5-8.0); Triglycerides 80 mg/dL
== END 2023-01-23 09:13 | disposition home or self-care (01) ==
LOC: HO.HMGCLDS 09:12
PROVIDERS: Internal Medicine; PCP Internal Medicine; Visit Provider Internal Medicine
DX: E78.9 Disorder of lipoprotein metabolism, unspecified (principal); F33.9 Major depressive disorder, recurrent, unspecified; M81.0 Age-related osteoporosis without current pathological fracture; J45.40 Moderate persistent asthma, uncomplicated
CPT/HCPCS: 36415; 80053; 80061; 85025

== ENCOUNTER 2023-01-28 13:01 | Outpatient (AMB) | payer OTHER, SELFPAY ==
--- NOTE | 2023-01-28 13:14 | AM.OFFVISNUR ---
Intake Intake Visit Reasons: Evenity Allergies oseltamivir [From TAMIFLU] Allergy (Unknown, Verified 01/22/23 10:38) SEVERE VOMITING,SHAKING, severe vomiting, vomiting Penicillins [PENICILLINS] Allergy (Unknown, Verified 01/22/23 10:38) RASH- A CHILD Nursing Note Patient came in for Evenity #11. Administered in R arm and L abdomen. Pt gave me an approval notice for Prolia.Scanned to chart. Office Meds romosozumab-aqqg Performing Provider: Arnav Mas MD Administered by: Mark Muller RN on 01/28/23 13:07 Dose Route Admin Location Lot Number Expiration Date [facility] [place] Spinner Continuous 210 mg subcut R arm and L abdomen [id number] 03/15/25 AMGEN Comments: one injection given in left abdomen per patient request. hx of breast cancer. Coding Diagnoses Assessment & Plan Assessment & Plan Orders: Orders AMB Romosozumab Injection Patient Supplied Today M81.0 - Age-related osteoporosis without current pathological fracture
== END 2023-01-28 13:25 | disposition home or self-care (01) ==
PROVIDERS: PCP Internal Medicine; Visit Provider Internal Medicine Endocrinology, Diabetes & Metabolism
DX: M81.0 Age-related osteoporosis without current pathological fracture (principal)

== ENCOUNTER → 2023-01-28 13:01 | Outpatient (BNVA) | payer OTHER, SELFPAY | PROVIDERS: PCP Internal Medicine; Visit Provider Internal Medicine Endocrinology, Diabetes & Metabolism | DX: M81.0 Age-related osteoporosis without current pathological fracture (principal) | CPT/HCPCS: 96372; J3111 ==

== ENCOUNTER 2023-02-28 12:44 | Outpatient (AMB) | payer OTHER, SELFPAY ==
--- NOTE | 2023-02-28 12:46 | AM.OFFVISNUR ---
Intake Intake Visit Reasons: Evenity Allergies oseltamivir [From TAMIFLU] Allergy (Unknown, Verified 01/22/23 10:38) SEVERE VOMITING,SHAKING, severe vomiting, vomiting Penicillins [PENICILLINS] Allergy (Unknown, Verified 01/22/23 10:38) RASH- A CHILD Office Meds romosozumab-aqqg 210 mg/2.34 mL(105 mg/1.17 mL x2)subcutaneous syringe Performing Provider: Arnav Mas MD Performing Location: [facility] [place] Endocrinology Administered by: Mark Muller RN on 02/28/23 12:46 Dose Route Admin Location Dispensed Lot Number Expiration Date [facility] Fusing Machine Operator 210 mg subcut R Arm and L abd 2.34 mL [id number] 03/05/25 AMGEN Comments: Evenity 12. Last Evenity Injection. F/u with Dr. Mas re: Prolia injection initiation Coding Assessment & Plan Assessment & Plan Orders: Orders AMB Romosozumab Injection Patient Supplied Today M81.0 - Age-related osteoporosis without current pathological fracture
== END 2023-02-28 13:07 | disposition home or self-care (01) ==
PROVIDERS: PCP Internal Medicine; Visit Provider Internal Medicine Endocrinology, Diabetes & Metabolism
DX: M81.0 Age-related osteoporosis without current pathological fracture (principal)

== ENCOUNTER → 2023-02-28 12:44 | Outpatient (BNVA) | payer OTHER, SELFPAY | PROVIDERS: PCP Internal Medicine; Visit Provider Internal Medicine Endocrinology, Diabetes & Metabolism | DX: M81.0 Age-related osteoporosis without current pathological fracture (principal) | CPT/HCPCS: 96372; J3111 ==

== ENCOUNTER 2023-04-30 09:15 | Outpatient (AMB) | payer OTHER, SELFPAY ==
[2023-04-30 09:17] VITALS: BP 102/78; PULSE 136; BMI 17.3
--- NOTE | 2023-04-30 09:17 | MHC.OFFVIS ---
Intake Vital Signs 04/30/23 09:17 Height 5 ft 7 in Weight 110 lb 3.698 oz BMI 17.3 BP 102/78 Blood Pressure Location Rt brachial Position Sitting Pulse 136 H Pulse Source Pulse Oximeter Intake Visit Reasons: f/u osteoporosis/LVM Intake Note: Patient present today for Osteoporosis follow up visit. Boxing Trainer Required: No Accompanied by: Self / Same As Patient Allergies oseltamivir [From TAMIFLU] Allergy (Unknown, Verified 04/30/23 09:28) SEVERE VOMITING,SHAKING, severe vomiting, vomiting Penicillins [PENICILLINS] Allergy (Unknown, Verified 04/30/23 09:28) RASH- A CHILD Medication List - Last Reconciled 04/30/23 by Arnav Mas MD albuterol sulfate 90 mcg/actuation (ProAir HFA) 1 inh inhalation QID PRN 30 days albuterol sulfate 2.5 mg (3 mL) inhalation Q4H PRN 90 days denosumab (Prolia) 60 mg subcut [id number] escitalopram oxalate 10 mg PO DAILY flu vac qs 2019(4 yr up)CD(PF) mL IM folic acid 1 mg PO DAILY hydroxyzine HCl 25 mg PO DAILY ipratropium-albuterol 20-100 mcg/actuation (Combivent Respimat) 1 puff inhalation QID levetiracetam 500 mg PO BID mirtazapine 15 mg PO DAILY simvastatin 80 mg PO DAILY 90 days HPI HPI Comments History of Present Illness Details 62 yo female, today for follow-up visit, for osteoporosis follow-up by She had her 1st dose of Reclast on 12/04/18. second dose 12/09/2019. She also received a 3rd dose last year She has history of left breast cancer diagnosed on 2006, s/p surgery, chemo and XRT, she has osteoporosis, she was on Raloxifene 60 mg daily started 04/22/15 , not clear why was stopped, she is not clear if she was on Bisphosphonates. She has PMH of COPD, low vitamin D, depression on SSRI. she was smoker quit many years ago. She states she fell and fracture her coccyx and sacrum. I reviewed the Xrays and there was no fractures , + GERD used to be on PPI, + FH of fractures or osteoporosis in mother and grandmother, denies nephrolithiasis. Calcium intake: calcium citrate 500 mg BID Vitamin D3 2000 IU/day Current: BMD 09/04/21 0.446 g/cm2, Z-score -3.3, T-score -4.5, osteoporosis, 24.0% decrease from previous, 32.2% decrease from baseline (<5% hoang 04/29/2019 DEXA scan AP SPINE L1-L4: Current: BMD 0.742 g/cm2, Z-score -1.8, T-score -3.6, osteoporosis, 0.3% decrease from previous, 2.3% increase from baseline (<5% change is not significant). Prior: BMD 0.744 g/cm2. Baseline: BMD 0.725 g/cm2. Of coronary artery bases The bowel or bowel or Mammography November LEFT FEMUR, NECK: Current: BMD 0.654 g/cm2, Z-score -1.1, T-score -2.8, osteoporosis. Prior: BMD 0.664 g/cm2. Baseline: BMD 0.708 g/cm2. LEFT FEMUR, TOTAL: Discarded yesterday. 4. Slight thickening isolated females Current: BMD 0.587 g/cm2, Z-score -1.9, T-score -3.3, osteoporosis, 4.4% decrease from previous, 10.8% decrease from baseline (<5% change is not significant). Prior: BMD 0.614 g/cm2. Baseline: BMD 0.658 g/cm2. LEFT FOREARM RADIUS 33%: BMD 0.757 g/cm2, Z-score -0.4, T-score -1.4, osteopenia. Laboratory Tests 04/15/18 05/14/18 01/15/19 10:45 11:09 13:55 Hgb Hct Creatinine Est GFR (Non-Af Am er) Calcium Alkaline Phosphata se Albumin Collgn I C-Telopep tide 25-OH Vitamin D To german Thyroxine (T4) 8.6 TSH 3rd Generation 1.31 PTH Intact 18 11/11/19 11/11/19 02/20/20 13:55 13:55 22:51 Hgb Hct Creatinine 1.12 Est GFR (Non-Af Am er) 49 Calcium 9.6 Alkaline Phosphata se 44 Albumin 3.9 Collgn I C-Telopep tide 63 25-OH Vitamin D To german 48.5 Thyroxine (T4) TSH 3rd Generation PTH Intact 02/20/20 22:51 Hgb 13.7 Hct 41.1 Creatinine Est GFR (Non-Af Am er) Calcium Alkaline Phosphata se Albumin Collgn I C-Telopep tide 25-OH Vitamin D To german Thyroxine (T4) TSH 3rd Generation PTH Intact She is currently on Prolia q mos [facility] Medical History Asthma, moderate persistent Breast cancer Chronic low back pain Depression, major, recurrent Dyspepsia Lipid disorder Osteoporosis Surgical History History of D&C History of repair of rotator cuff History of tubal ligation History of tonsillectomy History of lumpectomy of left breast (~2006) H/O colectomy H/O colonoscopy Family History Father Heart problem CVD (cardiovascular disease) Mother Myocardial infarct Social History Household Members: None Housing: Apartment Alcohol intake: former Patient Tobacco Use Status: Former Tobacco user Years Smoked: 25 + e-Cigarette/Vaping Use: Never Used Substance Use Type: Marijuana service: No Current occupational status: disabled Current occupation: Right handed Cognitive needs: No Hearing needs: No Vision needs: Yes Physical Exam Vital Signs: Last Vital Signs Pulse 136 H 04/30/23 09:17 BP 102/78 04/30/23 09:17 BMI result Body Mass Index 17.3 Assessment & Plan Assessment & Plan (1) Osteoporosis: Code(s): M81.0 - Age-related osteoporosis without current pathological fracture Plan: This is a 62-year-old white female with a history of osteoporosis with very low bone density received 3 doses of Reclast with declining bone density in the femur. Secondary workup was negative. Patient is currently on Evenity The plan is to continue the Prolia. Will check basic metabolic panel calcium prior. Also renewed calcium and vitamin-D3 prescription and stressed to her compliance with both medications Orders: Orders Basic Metabolic Panel Today M81.0 - Age-related osteoporosis without current pathological fracture Calcium Today M81.0 - Age-related osteoporosis without current pathological fracture Albumin Level Today M81.0 - Age-related osteoporosis without current pathological fracture Medications: New cholecalciferol (vitamin D3) 50 mcg PO DAILY 30 caps 5RF calcium citrate 500 mg (2 x 250 mg calcium) PO BID 120 tabs 5RF Coding Level of Care Code Est Pt Level 3 (70656) Diagnoses Osteoporosis M81.0
== END 2023-04-30 10:00 | disposition home or self-care (01) ==
PROVIDERS: PCP Internal Medicine; Visit Provider Internal Medicine Endocrinology, Diabetes & Metabolism
DX: M81.0 Age-related osteoporosis without current pathological fracture (principal)
CPT/HCPCS: 99213

== ENCOUNTER → 2023-04-30 09:15 | Outpatient (BNVA) | payer OTHER, SELFPAY | PROVIDERS: PCP Internal Medicine; Visit Provider Internal Medicine Endocrinology, Diabetes & Metabolism | DX: M81.0 Age-related osteoporosis without current pathological fracture (principal) | CPT/HCPCS: 99212 ==

== ENCOUNTER 2023-04-30 10:04 | Outpatient (REF) | payer OTHER, SELFPAY ==
[2023-04-30 11:18] LABS: Albumin Level 4.2 g/dL (3.5-5.0); Anion Gap 11 (12-20); Blood Urea Nitrogen 17 mg/dL (9-16); Calcium 10.1 mg/dL (8.4-10.2); Carbon Dioxide 29 mmol/L (22-29); Chloride 106 mmol/L (96-108); Estimated Glomerular Filt Rate 58; Glucose Random 104 mg/dL (60-115); Potassium 4.3 mmol/L (3.3-5.1); Sodium 142 mmol/L (135-145)
== END 2023-04-30 10:05 | disposition home or self-care (01) ==
LOC: HO.10HDL 10:04
PROVIDERS: Visit Provider Internal Medicine Endocrinology, Diabetes & Metabolism
DX: M81.0 Age-related osteoporosis without current pathological fracture (principal)
CPT/HCPCS: 36415; 80048; 82040

== ENCOUNTER 2023-05-01 11:51 | Outpatient (AMB) | payer OTHER, SELFPAY ==
--- NOTE | 2023-05-01 12:00 | AM.OFFVISNUR ---
Intake Intake Visit Reasons: Prolia Allergies oseltamivir [From TAMIFLU] Allergy (Unknown, Verified 04/30/23 09:28) SEVERE VOMITING,SHAKING, severe vomiting, vomiting Penicillins [PENICILLINS] Allergy (Unknown, Verified 04/30/23 09:28) RASH- A CHILD Nursing Note Patient presented to office for first Prolia injection after finishing 12 doses of Evenity. Patient was pleased to know it was one injection and said it didn't burn as much. Patient denied rash, fever, pain, and fatigue. Office Meds Prolia 60 mg/mL subcutaneous syringe Performing Provider: Arnav Mas MD Performing Location: [facility] [place] Administered by: Mark Muller RN on 05/01/23 12:00 Dose Route Admin Location Dispensed Lot Number Expiration Date [facility] [place] Production Supervisor 60 mg subcut R arm 1 mL [id number] 08/13/25 AMGEN Comments: 1st Prolia injection. Coding Assessment & Plan Assessment & Plan Orders: Orders AMB Denosumab Injection Patient Supplied Today M81.0 - Age-related osteoporosis without current pathological fracture
== END 2023-05-01 12:06 | disposition home or self-care (01) ==
LOC: HO.ENCR 11:51
PROVIDERS: PCP Internal Medicine; Visit Provider Internal Medicine Endocrinology, Diabetes & Metabolism
DX: M81.0 Age-related osteoporosis without current pathological fracture (principal)

== ENCOUNTER → 2023-05-01 11:51 | Outpatient (BNVA) | payer OTHER, SELFPAY | PROVIDERS: PCP Internal Medicine; Visit Provider Internal Medicine Endocrinology, Diabetes & Metabolism | DX: M81.0 Age-related osteoporosis without current pathological fracture (principal) | CPT/HCPCS: 96372; J0897 ==

== ENCOUNTER 2023-05-23 12:48 | Outpatient (AMB) | payer OTHER, SELFPAY ==
--- NOTE | 2023-05-23 12:52 | MHC.PC.OV ---
Vital Signs 05/23/23 12:53 Height 5 ft 7 in Weight 109 lb BMI 17.1 BP 100/64 Blood Pressure Location Rt brachial Position Sitting Pulse 117 H Pulse Source Pulse Oximeter Pulse Oximetry (%) 96 Oxygen Delivery Method Room Air Intake Visit Reasons: 4 Month follow up Allergies oseltamivir [From TAMIFLU] Allergy (Unknown, Verified 05/23/23 12:54) SEVERE VOMITING,SHAKING, severe vomiting, vomiting Penicillins [PENICILLINS] Allergy (Unknown, Verified 05/23/23 12:54) RASH- A CHILD Medication List - Last Reconciled 05/23/23 by Adam Gil MD albuterol sulfate 90 mcg/actuation (ProAir HFA) 1 inh inhalation QID PRN 30 days albuterol sulfate 2.5 mg (3 mL) inhalation Q4H PRN 90 days calcium citrate 500 mg (2 x 250 mg calcium) PO BID cholecalciferol (vitamin D3) 50 mcg PO DAILY denosumab (Prolia) 60 mg subcut [id number] escitalopram oxalate 10 mg PO DAILY folic acid 1 mg PO DAILY hydroxyzine HCl 25 mg PO DAILY ipratropium-albuterol 20-100 mcg/actuation (Combivent Respimat) 1 puff inhalation QID levetiracetam 500 mg PO BID mirtazapine 15 mg PO DAILY simvastatin 80 mg PO DAILY 90 days Tobacco use date assessed: 05/23/23 Dental Screening Dental Screen Date: 05/23/23 Did you have a dental visit in the last 12 months?: No Was dental information given to patient?: No HPI 4 Month follow up HPI Details Patient is 62-year-old female Patient has been losing weight She does smoke marijuana, we talked about certain strains of marijuana that suppresses appetite But patient says that she eats everything. And she has no abdominal discomfort or any other signs and symptoms to suggest otherwise Patient have a COPD-asthma overlap, and she is using Combivent 4 times a day as well as Ventolin inhaler as needed Patient is doing well with these inhalers. COPD can also cause weight loss, if she continued to lose weight I will have her evaluated by Pulmonary next visit Lipid disorder: Continue simvastatin 80 mg daily, patient has no side effects she is tolerating medication. Psychiatric care through Psychiatry She is also seeing Endocrinology for the management of osteoporosis. Her daughter is about to have a baby She is requesting Tdap, we also gave her flu vaccine Follow-up 4 months PFS Medical History Lipid disorder Asthma, moderate persistent Depression, major, recurrent Osteoporosis Dyspepsia Breast cancer Chronic low back pain Surgical History History of D&C History of repair of rotator cuff History of tubal ligation History of tonsillectomy History of lumpectomy of left breast (~2006) H/O colectomy H/O colonoscopy Family History Father Heart problem CVD (cardiovascular disease) Mother Myocardial infarct Brother Substance use disorder Mental health disorder Social History Household Members: None Housing: Apartment Alcohol intake: former Patient Tobacco Use Status: Former Tobacco user Years Smoked: 25 + e-Cigarette/Vaping Use: Never Used Substance Use Type: Marijuana service: No Current occupational status: disabled Current occupation: Right handed Cognitive needs: No Hearing needs: No Vision needs: Yes Questionnaire Thrive Questionnaire Date Thrive assessed: 07/23/22 AUDIT C Alcohol Use Questionnaire (AUDIT-C) 1. How often do you have a drink containing alcohol?: Never Total Score: 0 MADIHA-7 AMB Questionnaire MADIHA-7 Date MADIHA - 7 assessed: 07/23/22 Source: Developed by Drs. Arnav Lynn, Patricia Elena, Carlos Argueta and colleagues, with an educational latosha from [employer]. Review of Systems Const Denies chills and Denies fever(s) ENT Denies epistaxis and Denies nasal discharge Card Denies chest pain Resp Denies chest congestion, Denies cough and Denies hemoptysis GI Denies diarrhea and Denies nausea Skin/Breast Denies rash Neuro Reports no additional complaints Psych Reports no additional complaints Endo Reports no additional complaints Physical exam (Primary Care) Vital Signs: Last Vital Signs Pulse 117 H 05/23/23 12:53 BP 100/64 05/23/23 12:53 Pulse Ox 96 05/23/23 12:53 Oxygen Delivery Method Room Air 05/23/23 12:53 BMI result Body Mass Index 17.1 Tobacco/Smoking Status: Tobacco use Status Tobacco use date assessed 05/23/23 05/23/23 12:58 Patient Tobacco Use Status Former Tobacco user 05/23/23 12:53 e-Cigarette/Vaping Use Never Used 05/23/23 12:53 Thrive Assessment: Date of Thrive Assessment Date Thrive assessed 07/23/22 05/23/23 12:53 Const General: cooperative, comfortable and no acute distress Orientation/consciousness: patient oriented x3 HENMT Head: Yes normocephalic Eyes General: appearance normal, both eyes and all related structures Neck Neck: Yes supple Resp Effort & Inspection: normal respiratory effort, no cough and no stridor Cardio Rhythm: regular rhythm Heart sounds: S1 normal heart sound present and S2 normal heart sound present Skin General skin exam: turgor normal Neuro General: patient oriented x3, tone normal and moves all extremities Extrem Right lower extremity: no edema Left lower extremity: no edema Office Procedures Flu Questionnaire Does the patient have a severe egg allergy?: Yes Does the patient have severe life threatening allergies?: Yes Does the patient have a fever or illness today?: Yes 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 Has the patient ever had any past reaction to a flu shot?: Yes Immunizations flu vacc [id number] 6mos up(PF) 60 mcg(15 mcgx4)/0.5 mL IM syringe Performing Provider: Adam Gil MD Performing Location: [facility] [place] [facility] Administered by: Mark Howe CMA on 05/23/23 13:44 Dose Route Admin Location Dispensed Lot Number Expiration Date [facility] Harness Mender 0.5 mL IM Right Deltoid 0.5 mL [id number] 12/14/23 [id number] [employer] VIS Given Date VIS Provided VIS Publication Date 05/23/23 Single Vaccine 21 Eligibility Eligibility Date Funding Source Not [facility] Eligible 05/23/23 Private Boostrix Tdap 2.5 Lf unit-8 mcg-5 Lf/0.5 mL intramuscular syringe Performing Provider: Adam Gil MD Performing Location: [facility] [place] Adult [facility] Administered by: Mark Howe CMA on 05/23/23 13:44 Dose Route Admin Location Dispensed Lot Number Expiration Date [facility] Harness Mender 0.5 mL IM Right Deltoid 0.5 mL [id number] 05/21/25 [id number] [employer] VIS Given Date VIS Provided VIS Publication Date 05/23/23 Single Vaccine 21 Eligibility Eligibility Date Funding Source Not [facility] Eligible 05/23/23 Private Assessment and Plan Assessment & Plan (1) Asthma, moderate persistent: Code(s): J45.40 - Moderate persistent asthma, uncomplicated Qualifiers: Asthma complication type: uncomplicated Qualified Code(s): J45.40 - Moderate persistent asthma, uncomplicated (2) Malnourished: Code(s): E46 - Unspecified protein-calorie malnutrition Qualifiers: Malnutrition type: unspecified type Qualified Code(s): E46 - Unspecified protein-calorie malnutrition (3) Marijuana dependence: Code(s): F12.20 - Cannabis dependence, uncomplicated (4) Depression, major, recurrent: Code(s): F33.9 - Major depressive disorder, recurrent, unspecified Qualifiers: Active/Remission status: in partial remission Qualified Code(s): F33.41 - Major depressive disorder, recurrent, in partial remission (5) Osteoporosis: Code(s): M81.0 - Age-related osteoporosis without current pathological fracture Qualifiers: Osteoporosis type: age-related Presence of current pathological fracture: without current pathological fracture Qualified Code(s): M81.0 - Age-related osteoporosis without current pathological fracture (6) Lipid disorder: Code(s): E78.9 - Disorder of lipoprotein metabolism, unspecified (7) Losing weight: Code(s): R63.4 - Abnormal weight loss Plan Patient is 62-year-old female Patient has been losing weight She does smoke marijuana, we talked about certain strains of marijuana that suppresses appetite But patient says that she eats everything. And she has no abdominal discomfort or any other signs and symptoms to suggest otherwise Patient have a COPD-asthma overlap, and she is using Combivent 4 times a day as well as Ventolin inhaler as needed Patient is doing well with these inhalers. COPD can also cause weight loss, if she continued to lose weight I will have her evaluated by Pulmonary next visit Lipid disorder: Continue simvastatin 80 mg daily, patient has no side effects she is tolerating medication. Psychiatric care through Psychiatry She is also seeing Endocrinology for the management of osteoporosis. Her daughter is about to have a baby She is requesting Tdap, we also gave her flu vaccine Follow-up 4 months Orders: Orders Influenza [id number] Immunization Today Z23 - Encounter for immunization TDaP Immunization Today Z23 - Encounter for immunization Coding Level of Care Code Est Pt Level 4 (58813) Diagnoses Moderate persistent asthma without complication J45.40 Asthma complication type: uncomplicated Malnutrition, unspecified type E46 Malnutrition type: unspecified type Marijuana dependence F12.20 Recurrent major depressive disorder, in partial remission F33.41 Active/Remission status: in partial remission Age-related osteoporosis without current pathological fracture M81.0 Osteoporosis type: age-related Presence of current pathological fracture: without current pathological fracture Lipid disorder E78.9 Losing weight R63.4
[2023-05-23 12:53] VITALS: BP 100/64; PULSE 117; O2SAT 96; BMI 17.1
== END 2023-05-23 15:09 | disposition home or self-care (01) ==
LOC: HO.HMGC 12:48
PROVIDERS: PCP Internal Medicine; Visit Provider Internal Medicine
DX: J45.40 Moderate persistent asthma, uncomplicated (principal); E46 Unspecified protein-calorie malnutrition; F12.20 Cannabis dependence, uncomplicated; F33.41 Major depressive disorder, recurrent, in partial remission; M81.0 Age-related osteoporosis without current pathological fracture; E78.9 Disorder of lipoprotein metabolism, unspecified; R63.4 Abnormal weight loss; Z23 Encounter for immunization
CPT/HCPCS: 90471; 90686; 90715; 99214

== ENCOUNTER 2023-09-15 11:41 | Outpatient (REF) | payer OTHER, SELFPAY ==
--- NOTE | ~2023-09-15 | MM_ITS ---
EXAMINATION: MM SCREENING DIGITAL BREAST TOMOSYNTHESIS, BILATERAL CLINICAL INFORMATION: Screening. Asymptomatic. The patient has a history of prior left breast cancer treated with conservation. This occurred in 2006. COMPARISON: Mammography: This study is compared with prior exams dating back to 2019. TECHNIQUE: Digital breast tomosynthesis is performed in both the craniocaudal and mediolateral oblique views along with computer-aided detection (CAD). Synthesized 2D images are generated from the tomosynthesis. FINDINGS: There are scattered areas of fibroglandular density (ACR BI-RADS breast composition Category b). There are no significant masses, abnormal calcifications, or other abnormalities. Postsurgical changes are present in the upper outer quadrant of the left breast. Her MM/MM tomosynthesis screening BI IMPRESSION: No mammographic evidence of malignancy. ASSESSMENT: BI-RADS BI-RADS 2 - Benign Findings RECOMMENDATION: Routine annual mammography screening. 1 year F/U This examination should not preclude the clinical evaluation of a suspicious palpable abnormality. This patient's information was entered into a reminder system with a target due date for their next mammogram.
== END 2023-09-15 11:42 | disposition home or self-care (01) ==
LOC: HO.MAMMO 11:41
PROVIDERS: PCP Internal Medicine; Visit Provider Internal Medicine
DX: Z12.31 Encounter for screening mammogram for malignant neoplasm of breast (principal)
CPT/HCPCS: 77063; 77067

== ENCOUNTER → 2023-09-15 12:00 | Outpatient (BNV) | payer OTHER, SELFPAY | PROVIDERS: PCP Internal Medicine; Visit Provider Radiology Diagnostic Radiology | DX: Z12.31 Encounter for screening mammogram for malignant neoplasm of breast (principal) | CPT/HCPCS: 77063; 77067 ==

== ENCOUNTER 2023-09-23 12:37 | Outpatient (AMB) | payer OTHER, SELFPAY ==
[2023-09-23 12:40] VITALS: BP 98/52; PULSE 136; O2SAT 97; BMI 15.4
--- NOTE | 2023-09-23 12:40 | MHC.PC.OV ---
Vital Signs 09/23/23 12:40 Height 5 ft 7 in Weight 98 lb 2 oz BMI 15.4 BP 98/52 L Blood Pressure Location Rt brachial Position Sitting Pulse 136 H Pulse Source Pulse Oximeter Pulse Oximetry (%) 97 Oxygen Delivery Method Room Air Intake Visit Reasons: Annual PE Allergies oseltamivir [From TAMIFLU] Allergy (Unknown, Verified 09/23/23 12:42) SEVERE VOMITING,SHAKING, severe vomiting, vomiting Penicillins [PENICILLINS] Allergy (Unknown, Verified 09/23/23 12:42) RASH- A CHILD Medication List - Last Reconciled 09/23/23 by Adam Gil MD albuterol sulfate 90 mcg/actuation (ProAir HFA) 1 inh inhalation QID PRN 30 days albuterol sulfate 2.5 mg (3 mL) inhalation Q4H PRN 90 days calcium citrate 500 mg (2 x 250 mg calcium) PO BID cholecalciferol (vitamin D3) 50 mcg PO DAILY denosumab (Prolia) 60 mg subcut [id number] escitalopram oxalate 10 mg PO DAILY folic acid 1 mg PO DAILY hydroxyzine HCl 25 mg PO DAILY ipratropium-albuterol 20-100 mcg/actuation (Combivent Respimat) 1 puff inhalation QID levetiracetam 500 mg PO BID mirtazapine 15 mg PO DAILY simvastatin 80 mg PO DAILY 90 days Tobacco use date assessed: 09/23/23 Fall risk assessment: 2 + Falls in past year Last assessed Fall Risk: 09/23/23 Dental Screening Dental Screen Date: 09/23/23 Did you have a dental visit in the last 12 months?: No Did you have a dental problem in the last 6 months where you did not have access to dental care?: No Was dental information given to patient?: Patient has dentist HPI Annual PE HPI Details Patient is 63-year-old female came in for physical examination Asthma at lipid management through PCP office only Patient is requesting updraft machine I have sent a script for that She is due for labs order placed patient notified Patient is also seeing Dr. Mas for osteoporosis management She continued to be malnourished and underweight, patient says that she is eating as much as she can she has no teeth in her mouth On examination I feel a cystic mass left breast I have ordered ultrasound for the patient She has already had mammogram done, report is not available She said Dr. Raymundo when she saw him as an OBGYN told her that she does not need Gyne care anymore Patient is declining to do colonoscopies Follow-up 6 months physical exam 1 year [facility] Medical History Lipid disorder Asthma, moderate persistent Depression, major, recurrent Osteoporosis Dyspepsia Breast cancer Chronic low back pain Surgical History History of D&C History of repair of rotator cuff History of tubal ligation History of tonsillectomy History of lumpectomy of left breast (~2006) H/O colectomy H/O colonoscopy Family History Father Heart problem CVD (cardiovascular disease) Mother Myocardial infarct Brother Substance use disorder Mental health disorder Social History Household Members: None Housing: Apartment Alcohol intake: former Patient Tobacco Use Status: Former Tobacco user Years Smoked: 25 + e-Cigarette/Vaping Use: Never Used Substance Use Type: Marijuana service: No Current occupational status: disabled Current occupation: Right handed Cognitive needs: No Hearing needs: No Vision needs: Yes Questionnaire Thrive Questionnaire Date Thrive assessed: 07/23/22 AUDIT C Alcohol Use Questionnaire (AUDIT-C) 1. How often do you have a drink containing alcohol?: Never Total Score: 0 MADIHA-7 AMB Questionnaire MADIHA-7 Date MADIHA - 7 assessed: 07/23/22 Source: Developed by Drs. Arnav Lynn, Patricia Elena, Carlos Argueta and colleagues, with an educational latosha from [employer]. Review of Systems Const Denies chills, Denies fever(s) and Denies headache(s) Eyes Denies blurry vision ENT Denies headache(s), Denies nasal discharge, Denies nasal obstruction, Denies odynophagia and Denies sinus pain Card Denies chest pain at rest and Denies chest pain with activity Resp Denies cough and Denies hemoptysis GI Denies diarrhea, Denies odynophagia, Denies vomiting and Denies hematemesis Reports as per HPI Musc Denies abnormal gait Skin/Breast Reports as per HPI Neuro Denies Neuro-related abnormal movements, Denies Abnormal speech present, Denies abnormal gait, Denies headache(s) and Denies Sensory deficit (Neuro) Psych Denies mood swings and Denies paranoia Endo Reports as per HPI Juan/Lymph Reports as per HPI Aller/Immun Reports as per HPI Physical exam (Primary Care) Vital Signs: Last Vital Signs Pulse 136 H 09/23/23 12:40 BP 98/52 L 09/23/23 12:40 Pulse Ox 97 09/23/23 12:40 Oxygen Delivery Method Room Air 09/23/23 12:40 BMI result Body Mass Index 15.4 Tobacco/Smoking Status: Tobacco use Status Tobacco use date assessed 09/23/23 09/23/23 12:46 Patient Tobacco Use Status Former Tobacco user 09/23/23 12:41 e-Cigarette/Vaping Use Never Used 09/23/23 12:41 Thrive Assessment: Date of Thrive Assessment Date Thrive assessed 07/23/22 09/23/23 12:41 Const General: cooperative, comfortable and no acute distress Orientation/consciousness: patient oriented x3 HENMT Head: Yes normocephalic and Yes atraumatic Eyes General: appearance normal, both eyes and all related structures Pupils: Equal, round and reactive pupils present EOM: EOMs intact bilaterally Neck Neck: Yes supple and No lymphadenopathy Thyroid: Thyroid normal Lymphatic: no lymphadenopathy noted Chest Chest/axillae images: 1. Round cystic mass nontender size 3 in x 3 in Resp Effort & Inspection: normal respiratory effort and able to speak in complete sentences Auscultation: clear to auscultation bilaterally Cardio Heart sounds: S1 normal heart sound present and S2 normal heart sound present GI Palpation (GI): Soft to palpation and nontender Auscultation: normal bowel sounds General: Yes no CVA tenderness Back/Spine/Pelvis Back: no CVA tenderness Skin General skin exam: elasticity normal and turgor normal Neuro General: patient oriented x3 Cranial nerves: Yes Equal, round and reactive pupils present Speech: No Abnormal speech present Sensory Exam: No Sensory deficit (Neuro) Extrem General: Yes normal exam except as noted and No edema Assessment and Plan Assessment & Plan (1) Encounter for general adult medical examination with abnormal findings: Code(s): Z00.01 - Encounter for general adult medical examination with abnormal findings (2) Lump of breast, left: Code(s): N63.20 - Unspecified lump in the left breast, unspecified quadrant Qualifiers: Breast mass location: upper outer quadrant Qualified Code(s): N63.21 - Unspecified lump in the left breast, upper outer quadrant (3) Malnourished: Code(s): E46 - Unspecified protein-calorie malnutrition Qualifiers: Malnutrition type: unspecified type Qualified Code(s): E46 - Unspecified protein-calorie malnutrition (4) Depression, major, recurrent: Code(s): F33.9 - Major depressive disorder, recurrent, unspecified Qualifiers: Active/Remission status: in full remission Qualified Code(s): F33.42 - Major depressive disorder, recurrent, in full remission (5) Asthma, moderate persistent: Code(s): J45.40 - Moderate persistent asthma, uncomplicated Qualifiers: Asthma complication type: uncomplicated Qualified Code(s): J45.40 - Moderate persistent asthma, uncomplicated (6) Osteoporosis: Code(s): M81.0 - Age-related osteoporosis without current pathological fracture Qualifiers: Osteoporosis type: age-related Presence of current pathological fracture: without current pathological fracture Qualified Code(s): M81.0 - Age-related osteoporosis without current pathological fracture (7) Lipid disorder: Code(s): E78.9 - Disorder of lipoprotein metabolism, unspecified (8) Anxiety, generalized: Code(s): F41.1 - Generalized anxiety disorder Plan Patient is 63-year-old female came in for physical examination Asthma at lipid management through PCP office only Patient is requesting updraft machine I have sent a script for that She is due for labs order placed patient notified Patient is also seeing Dr. Mas for osteoporosis management She continued to be malnourished and underweight, patient says that she is eating as much as she can she has no teeth in her mouth On examination I feel a cystic mass left breast I have ordered ultrasound for the patient She has already had mammogram done, report is not available She said Dr. Raymundo when she saw him as an OBGYN told her that she does not need Gyne care anymore Patient is declining to do colonoscopies Follow-up 6 months physical exam 1 year Orders: Orders Complete Blood Count Auto Diff Today E46 - Unspecified protein-calorie malnutrition, E78.9 - Disorder of lipoprotein metabolism, unspecified, F33.42 - Major depressive disorder, recurrent, in full remission, F41.1 - Generalized anxiety disorder, J45.40 - Moderate persistent asthma, uncomplicated, M81.0 - Age-related osteoporosis without current pathological fracture Comprehensive Met. Panel Today N63.20 - Unspecified lump in the left breast, unspecified quadrant US breast LT complete Today N63.20 - Unspecified lump in the left breast, unspecified quadrant LDL Cholesterol Direct Today N63.20 - Unspecified lump in the left breast, unspecified quadrant Medications: New [Updraft machine] As directed 1 ea 0RF J45.40 - Moderate persistent asthma, uncomplicated [Updraft machine] As directed 1 ea 0RF J45.40 - Moderate persistent asthma, uncomplicated Refilled albuterol sulfate 90 mcg/actuation (ProAir HFA) 1 inh inhalation QID PRN 18 grams 0RF shortness of breath or wheezing 30 days Coding Level of Care Code Est Pt Prev Care >65y(67391) Diagnoses Encounter for general adult medical examination with abnormal findings Z00.01 Mass of upper outer quadrant of left breast N63.21 Breast mass location: upper outer quadrant Malnutrition, unspecified type E46 Malnutrition type: unspecified type Recurrent major depressive disorder, in full remission F33.42 Active/Remission status: in full remission Moderate persistent asthma without complication J45.40 Asthma complication type: uncomplicated Age-related osteoporosis without current pathological fracture M81.0 Osteoporosis type: age-related Presence of current pathological fracture: without current pathological fracture Lipid disorder E78.9 Anxiety, generalized F41.1
== END 2023-09-23 13:12 | disposition home or self-care (01) ==
LOC: HO.HMGC 12:37
PROVIDERS: PCP Internal Medicine; Visit Provider Internal Medicine
DX: Z00.01 Encounter for general adult medical examination with abnormal findings (principal); N63.21 Unspecified lump in the left breast, upper outer quadrant; E46 Unspecified protein-calorie malnutrition; F33.42 Major depressive disorder, recurrent, in full remission; J45.40 Moderate persistent asthma, uncomplicated; M81.0 Age-related osteoporosis without current pathological fracture; E78.9 Disorder of lipoprotein metabolism, unspecified; F41.1 Generalized anxiety disorder
CPT/HCPCS: 99214; 99397

== ENCOUNTER 2023-09-30 14:19 | Outpatient (AMB) | payer OTHER, SELFPAY ==
[2023-09-30 14:25] VITALS: BP 102/70; PULSE 104; O2SAT 96; BMI 14.9
--- NOTE | 2023-09-30 14:25 | MHC.PC.OV ---
Vital Signs 09/30/23 14:25 Height 5 ft 7 in Weight 95 lb 4 oz BMI 14.9 BP 102/70 Blood Pressure Location Rt brachial Position Sitting Pulse 104 H Pulse Source Pulse Oximeter Pulse Oximetry (%) 96 Oxygen Delivery Method Room Air Intake Visit Reasons: Oncology referral~ Allergies oseltamivir [From TAMIFLU] Allergy (Unknown, Verified 09/30/23 14:25) SEVERE VOMITING,SHAKING, severe vomiting, vomiting Penicillins [PENICILLINS] Allergy (Unknown, Verified 09/30/23 14:25) RASH- A CHILD Medication List - Last Reconciled 09/30/23 by Adam Gil MD albuterol sulfate 2.5 mg (3 mL) inhalation Q4H PRN 90 days albuterol sulfate 90 mcg/actuation (ProAir HFA) 1 inh inhalation QID PRN 30 days calcium citrate 500 mg (2 x 250 mg calcium) PO BID cholecalciferol (vitamin D3) 50 mcg PO DAILY denosumab (Prolia) 60 mg subcut [id number] escitalopram oxalate 20 mg PO DAILY folic acid 1 mg PO DAILY hydroxyzine HCl 50 mg PO DAILY ipratropium-albuterol 20-100 mcg/actuation (Combivent Respimat) 1 puff inhalation QID levetiracetam 500 mg PO BID mirtazapine 15 mg PO DAILY simvastatin 80 mg PO DAILY 90 days [Updraft machine As directed] Tobacco use date assessed: 09/30/23 Fall risk assessment: No Falls in past year Last assessed Fall Risk: 09/30/23 Dental Screening Dental Screen Date: 09/30/23 Did you have a dental visit in the last 12 months?: No Was dental information given to patient?: Patient has dentist HPI Oncology referral~ HPI Details Patient is 63-year-old female with long history of tobacco use, history of depression anxiety panic disorder, lack of appetite, difficulty gaining weight Head abnormal chest x-ray followed by CT scan of chest Which showed Large mass within the left hilar region, with associated nodules and numerous pleural-based lesions concerning for neoplastic process. She had small pericardial effusion as well Referral to Oncology placed stat, message sent to department as well Meanwhile patient is requesting a script for wheelchair which we will address And also ensure as a nutritional supplement. She is currently having severe anxiety and has started picking on her skin She is seeing a therapist and a prescriber I am stopping her hydroxyzine and replacing it with lorazepam 1 mg b.i.d. [facility] Medical History Lipid disorder Asthma, moderate persistent Depression, major, recurrent Osteoporosis Dyspepsia Breast cancer Chronic low back pain Surgical History History of D&C History of repair of rotator cuff History of tubal ligation History of tonsillectomy History of lumpectomy of left breast (~2006) H/O colectomy H/O colonoscopy Family History Father Heart problem CVD (cardiovascular disease) Mother Myocardial infarct Brother Substance use disorder Mental health disorder Social History Household Members: None Housing: Apartment Alcohol intake: former Patient Tobacco Use Status: Former Tobacco user Years Smoked: 25 + e-Cigarette/Vaping Use: Never Used Substance Use Type: Marijuana service: No Current occupational status: disabled Current occupation: Right handed Cognitive needs: No Hearing needs: No Vision needs: Yes Questionnaire Thrive Questionnaire Date Thrive assessed: 07/23/22 MADIHA-7 AMB Questionnaire MADIHA-7 Date MADIHA - 7 assessed: 07/23/22 Source: Developed by Drs. Arnav Lynn, Patricia Elena, Carlos rAgueta and colleagues, with an educational latosha from [employer]. Review of Systems Const Denies chills and Denies fever(s) ENT Denies epistaxis and Denies nasal discharge Resp Denies hemoptysis GI Denies diarrhea and Denies nausea Skin/Breast Denies rash Neuro Reports no additional complaints Psych Reports no additional complaints Endo Reports no additional complaints Physical exam (Primary Care) Vital Signs: Last Vital Signs Pulse 104 H 09/30/23 14:25 BP 102/70 09/30/23 14:25 Pulse Ox 96 09/30/23 14:25 Oxygen Delivery Method Room Air 09/30/23 14:25 BMI result Body Mass Index 14.9 Tobacco/Smoking Status: Tobacco use Status Tobacco use date assessed 09/30/23 09/30/23 14:26 Patient Tobacco Use Status Former Tobacco user 09/30/23 14:26 e-Cigarette/Vaping Use Never Used 09/30/23 14:26 Thrive Assessment: Date of Thrive Assessment Date Thrive assessed 07/23/22 09/30/23 14:26 Const Other: Malnourished female with skin picking brady on right forehead, came in with her daughter General: cooperative, comfortable and no acute distress Orientation/consciousness: patient oriented x3 HENMT Head: Yes normocephalic Eyes General: appearance normal, both eyes and all related structures Neck Neck: Yes supple Chest Other: Clear but diminished breath sounds bilateral Resp Effort & Inspection: no cough and no stridor Cardio Rhythm: regular rhythm Heart sounds: S1 normal heart sound present and S2 normal heart sound present Skin General skin exam: turgor normal Neuro General: patient oriented x3, tone normal and moves all extremities Extrem Right lower extremity: no edema Left lower extremity: no edema Assessment and Plan Assessment & Plan (1) Lung mass: Code(s): R91.8 - Other nonspecific abnormal finding of lung field (2) Malnourished: Code(s): E46 - Unspecified protein-calorie malnutrition Qualifiers: Malnutrition type: unspecified type Qualified Code(s): E46 - Unspecified protein-calorie malnutrition (3) Losing weight: Code(s): R63.4 - Abnormal weight loss (4) Depression, major, recurrent: Code(s): F33.9 - Major depressive disorder, recurrent, unspecified Qualifiers: Active/Remission status: in partial remission Qualified Code(s): F33.41 - Major depressive disorder, recurrent, in partial remission (5) Anxiety, generalized: Code(s): F41.1 - Generalized anxiety disorder (6) Osteoporosis: Code(s): M81.0 - Age-related osteoporosis without current pathological fracture Qualifiers: Osteoporosis type: age-related Presence of current pathological fracture: without current pathological fracture Qualified Code(s): M81.0 - Age-related osteoporosis without current pathological fracture (7) Asthma, moderate persistent: Code(s): J45.40 - Moderate persistent asthma, uncomplicated Qualifiers: Asthma complication type: uncomplicated Qualified Code(s): J45.40 - Moderate persistent asthma, uncomplicated (8) 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 She had small pericardial effusion as well Referral to Oncology placed stat, message sent to department as well Meanwhile patient is requesting a script for wheelchair which we will address And also ensure as a nutritional supplement. She is currently having severe anxiety and has started picking on her skin She is seeing a therapist and a prescriber I am stopping her hydroxyzine and replacing it with lorazepam 1 mg b.i.d. Orders: Referrals Hematology & Oncology Referral R91.8 - Other nonspecific abnormal finding of lung field Medications: New lorazepam 1 mg PO BID PRN 60 tabs 0RF anxiety Coding Level of Care Code Est Pt Level 5 (47298) Diagnoses Lung mass R91.8 Malnutrition, unspecified type E46 Malnutrition type: unspecified type Losing weight R63.4 Recurrent major depressive disorder, in partial remission F33.41 Active/Remission status: in partial remission Anxiety, generalized F41.1 Age-related osteoporosis without current pathological fracture M81.0 Osteoporosis type: age-related Presence of current pathological fracture: without current pathological fracture Moderate persistent asthma without complication J45.40 Asthma complication type: uncomplicated Anxiety disorder due to general medical condition with panic attack F06.4; F41.0 Skin-picking disorder F42.4 Time Spent (min) 41 Comment [id number] with patient and daughter, reviewing imaging, charting, coordination
== END 2023-09-30 15:30 | disposition home or self-care (01) ==
PROVIDERS: PCP Internal Medicine; Visit Provider Internal Medicine
DX: R91.8 Other nonspecific abnormal finding of lung field (principal); E46 Unspecified protein-calorie malnutrition; R63.4 Abnormal weight loss; F33.41 Major depressive disorder, recurrent, in partial remission; F41.1 Generalized anxiety disorder; M81.0 Age-related osteoporosis without current pathological fracture; J45.40 Moderate persistent asthma, uncomplicated; F06.4 Anxiety disorder due to known physiological condition; F41.0 Panic disorder [episodic paroxysmal anxiety]; F42.4 Excoriation (skin-picking) disorder
CPT/HCPCS: 99215

== ENCOUNTER → 2023-10-03 09:20 | Outpatient (BNV) | payer OTHER, SELFPAY | PROVIDERS: PCP Internal Medicine; Referring Provider Internal Medicine; Visit Provider Internal Medicine Medical Oncology | DX: C34.12 Malignant neoplasm of upper lobe, left bronchus or lung (principal) | CPT/HCPCS: 99204; 99213; 99214 ==

== ENCOUNTER 2023-10-09 09:20 | Day surgery (SDC) | payer OTHER, SELFPAY ==
--- NOTE | 2023-10-08 12:29 | P.CONAN_ITS ---
Documented by User: Brittny Burleson NP 10/08/23 12:31 HPI - Anesthesia Eval Consult details Narrative: 63yo F for Endoscopic Bronchial Ultrasound PMFSH Active Problems Active Problems: All Active Problems Difficulty walking (Acute) Lung cancer (Acute) Skin-picking disorder (Acute) Anxiety disorder due to general medical condition with panic attack (Acute) Lung mass (Acute) Encounter for general adult medical examination with abnormal findings (Acute) Lump of breast, left (Acute) Marijuana dependence (Acute) Malnourished (Acute) Losing weight (Acute) Abrasion, left knee, initial encounter (Acute) Ecchymosis of forearm (Acute) Head concussion (Acute) Head injury due to trauma (Acute) History of breast cancer (Acute) Pain, joint, hip, left (Acute) Fall (Acute) DJD (degenerative joint disease) of knee (Acute) Instability of both knee joints (Acute) Breast cancer (Acute) Depression, major, recurrent (Acute) Anxiety, generalized (Acute) Lipid disorder (Acute) Osteoporosis (Acute) Asthma, moderate persistent (Acute) Depression, major, recurrent (Acute) Hospital discharge follow-up (Acute) Past Medical History Medical History Hx of seizure disorder Lipid disorder Asthma, moderate persistent Depression, major, recurrent Osteoporosis Dyspepsia Breast cancer Chronic low back pain Family History Family History (Updated 10/03/23 @ 09:28 by David Zepeda) Father CVD (cardiovascular disease) Heart problem COPD (chronic obstructive pulmonary disease) Mother Myocardial infarct COPD (chronic obstructive pulmonary disease) Brother Mental health disorder Substance use disorder COPD (chronic obstructive pulmonary disease) Surgical History Surgical History (Updated 10/09/23 @ 09:46 by Zeenat Damian RN) Hx of hand surgery History of D&C History of repair of rotator cuff History of tubal ligation History of tonsillectomy History of lumpectomy of left breast (~2006) H/O colectomy H/O colonoscopy Social History Social History (Updated 10/03/23 @ 09:28 by David Zepeda) Household Members: None Housing: Apartment Alcohol intake: former Patient Tobacco Use Status: Former Tobacco user Quit Date: >10 yrs ago Years Smoked: 25 + e-Cigarette/Vaping Use: Never Used Use of substances other than those prescribed or required for medical reasons: Yes Substance Use Type: Marijuana Substance Use Frequency: Daily Are you DNR?: No Advance Directives: No Advance Directives Information Provided: Yes service: No Current occupational status: disabled Current occupation: Right handed Cognitive needs: No Hearing needs: No Vision needs: Yes Meds Allergies Allergy/AdvReac Type Severity Reaction Status Date / Time oseltamivir [From TAMIFLU] Allergy Unknown SEVERE Verified 10/09/23 09:47 VOMITING,SHAKING, severe vomiting, vomiting Penicillins [PENICILLINS] Allergy Unknown RASH- A Verified 10/09/23 09:47 CHILD Home Medications ?Medication ?Instructions ?Recorded ?Confirmed ?Last Taken ?Type mirtazapine 15 mg tablet 15 mg PO DAILY 03/17/20 10/09/23 Unknown History folic acid 1 mg tablet 1 mg PO DAILY 11/14/20 10/09/23 Unknown History levetiracetam 500 mg tablet 500 mg PO BID 04/30/23 10/09/23 Unknown History escitalopram oxalate 20 mg tablet 20 mg PO DAILY 09/30/23 10/09/23 Unknown History Exam Pertinent Lab Results Pertinent Lab Results: Laboratory Tests 10/03/23 10:25 WBC 10.2 Hgb 13.8 Hct 40.8 Plt Count 285 D Sodium 140 Potassium 5.1 Chloride 103 Carbon Dioxide 31 H BUN 18 H Creatinine 1.07 Assessment and Plan Assessment Anesthesia Assessment: Chart Reviewed Documented by User: Mickey Tinsley MD 10/09/23 12:41 [facility] Past Medical History Medical History Hx of seizure disorder Lipid disorder Asthma, moderate persistent Depression, major, recurrent Osteoporosis Dyspepsia Breast cancer Chronic low back pain Family History Family History (Updated 10/03/23 @ 09:28 by David Zepeda) Father CVD (cardiovascular disease) Heart problem COPD (chronic obstructive pulmonary disease) Mother Myocardial infarct COPD (chronic obstructive pulmonary disease) Brother Mental health disorder Substance use disorder COPD (chronic obstructive pulmonary disease) Family history of problems with anesthesia: No Surgical History Surgical History (Updated 10/09/23 @ 09:46 by Zeenat Damian RN) Hx of hand surgery History of D&C History of repair of rotator cuff History of tubal ligation History of tonsillectomy History of lumpectomy of left breast (~2006) H/O colectomy H/O colonoscopy History of Problems with Anesthesia: Yes (severe PONV) Social History Social History (Updated 10/03/23 @ 09:28 by David Zepeda) Household Members: None Housing: Apartment Alcohol intake: former Patient Tobacco Use Status: Former Tobacco user Quit Date: >10 yrs ago Years Smoked: 25 + e-Cigarette/Vaping Use: Never Used Use of substances other than those prescribed or required for medical reasons: Yes Substance Use Type: Marijuana Substance Use Frequency: Daily Are you DNR?: No Advance Directives: No Advance Directives Information Provided: Yes service: No Current occupational status: disabled Current occupation: Right handed Cognitive needs: No Hearing needs: No Vision needs: Yes Meds Allergies Allergy/AdvReac Type Severity Reaction Status Date / Time oseltamivir [From TAMIFLU] Allergy Unknown SEVERE Verified 10/09/23 09:47 VOMITING,SHAKING, severe vomiting, vomiting Penicillins [PENICILLINS] Allergy Unknown RASH- A Verified 10/09/23 09:47 CHILD Home Medications ?Medication ?Instructions ?Recorded ?Confirmed ?Last Taken ?Type mirtazapine 15 mg tablet 15 mg PO DAILY 03/17/20 10/09/23 Unknown History folic acid 1 mg tablet 1 mg PO DAILY 11/14/20 10/09/23 Unknown History levetiracetam 500 mg tablet 500 mg PO BID 04/30/23 10/09/23 Unknown History escitalopram oxalate 20 mg tablet 20 mg PO DAILY 09/30/23 10/09/23 Unknown History Exam Airway Mallampati Class: I TM Dist: >3cm Neck ROM: Full Denture: Upper and Lower Heart: ok Lungs: ok Assessment and Plan Assessment Anesthesia Assessment: Anesthesia Plan Discussed Final Anesthetic Review Family History of Problems with Anesthesia: No History of Problems with Anesthesia: Yes (severe PONV) NPO: Yes ASA Class: III Final Preanesthetic Review: No Changes in Pt Med Stat, Meds/Allgs Chart Reviewed, Consent Obtained/Reviewed and Anes Risks/Benef Reviewed Patient Risk: High Procedure Risk: Intermediate Anesthetic Plan Anesthetic Plan: GA and Agree w/ Assess. and Plan Disposition: Standard PACU
[2023-10-09 09:47] VITALS: BMI 14.5
[2023-10-09 10:19] VITALS: BP 110/55; PULSE 103; RESP 16; TEMP 37; O2SAT 95
[2023-10-09] MEDS: Lactated Ringers 1,000 ML 100 ML IVCONT (10:26)
--- NOTE | 2023-10-09 10:53 | MHC.SHP ---
Pre-Procedural Eval Section A - 24 Hr Update-Section A only Date of Service: 10/09/23 The patient is an INPATIENT: No Changes since office visit: Yes Patient answered all questions; No Cold of Flu in the past 2 weeks, No New Medical Problems and No Changes in Medication The patient has been examined within 24 hours of the surgical procedure. The History & Physical has been completed within 30 days and I have reviewed it.: No Section B - Complete if H&P > 30 days Chief Complaint: Other nonspecific abnormal finding of lung field Details of Present Illness: 63-year-old lady with newly noted left sided hilar mass referred for endobronchial biopsies. Relevant Family History (Specify if Yes): No Relevant Social History: Tobacco Use Present Medications: see Short Stay Collaborative assessment Medical History: No relevant PMH History of Previous Operations: No relevant previous surgery Allergies: Allergies Allergy/AdvReac Type Severity Reaction Status Date / Time oseltamivir [From TAMIFLU] Allergy Unknown SEVERE Verified 10/09/23 09:47 VOMITING,SHAKING, severe vomiting, vomiting Penicillins [PENICILLINS] Allergy Unknown RASH- A Verified 10/09/23 09:47 CHILD Review of Systems Sugical H&P ROS: Negative: Constitution, Cardiovascular, Respiratory, Neurological, Psychiatric, Hem-Onc, Allergic/Immunologic, Gastrointestinal, Genitourinary, Musculoskeletal, Integumentary, Endocrine and Eyes/Ears/Nose/Throat Exam Surgical H&P Exam: Normal: HEENT, Normal: Heart, Normal: Lungs, Normal: Extremities, Normal: Abdomen, Normal: Skin and Normal: Neurological Plan Diagnosis/Plan: Unchanged I have reviewed the history and physical and performed a pertinent physical examination on my patient. No changes have occurred unless specified. Will proceed with endobronchial/transbronchial biopsies. Time Spent With Patient Time: Total time managing care of this patient today ____ minutes.
[2023-10-09 13:31] VITALS: BP 108/68; PULSE 101; RESP 18; TEMP 37.1; O2SAT 91
[2023-10-09 13:36] VITALS: BP 108/68; PULSE 110; RESP 18; O2SAT 94
[2023-10-09 13:41] VITALS: BP 99/62; PULSE 108; RESP 18; O2SAT 100
[2023-10-09 13:46] VITALS: BP 113/51; PULSE 98; RESP 18; O2SAT 100
--- NOTE | 2023-10-09 13:59 | P.BOP_ITS ---
Brief Operative Note Date of Service: 10/09/23 Pre-op diagnosis: Lung cancer Post-op diagnosis: same Procedure: Flexible bronchoscope advanced through the ET tube with patient intubated for procedure and throughout the tracheobronchial tree with visualization of normal endobronchial mucosa and no endobronchial lesions. Endoscopic bronchial ultrasound-guided biopsies of station 7 and 4 obtained with 3 passes at each station. Intra procedure pathology confirmed presence of lymphocytes on all sample. Samples were sent for further testing. Biopsy site were observed and no active bleeding was noted. Patient tolerated the procedure well and was returned to PACU in stable condition. Surgeon: Horacio Sharp MD Anesthesia: GETA Was an Garage Door Service Technician used for this Procedure?: No Estimated blood loss (mL): 0 Condition: stable Disposition: PACU
[2023-10-09 14:01] VITALS: BP 114/61; PULSE 97; RESP 18; TEMP 37.1; O2SAT 97
== END 2023-10-09 14:37 | disposition home or self-care (01) ==
PROVIDERS: PCP Internal Medicine; Visit Provider Internal Medicine Pulmonary Disease
PROC: (CPT 31652; principal; 2023-10-09 11:00)
DX: C96.9 Malignant neoplasm of lymphoid, hematopoietic and related tissue, unspecified (principal); R91.8 Other nonspecific abnormal finding of lung field; J44.9 Chronic obstructive pulmonary disease, unspecified; G40.909 Epilepsy, unspecified, not intractable, without status epilepticus; Z85.3 Personal history of malignant neoplasm of breast; Z90.49 Acquired absence of other specified parts of digestive tract; Z79.899 Other long term (current) drug therapy
CPT/HCPCS: 31652; 88112; 88172; 88173; 88177; 88305; 88341; 88342; J0171; J2704; J3010

== ENCOUNTER → 2023-10-09 09:20 | Outpatient (BNV) | payer OTHER, SELFPAY | PROVIDERS: PCP Internal Medicine; Visit Provider Internal Medicine Pulmonary Disease | DX: C34.90 Malignant neoplasm of unspecified part of unspecified bronchus or lung (principal) | CPT/HCPCS: 31652 ==

== ENCOUNTER 2023-10-16 13:53 | Outpatient (REF) | payer OTHER, SELFPAY ==
--- NOTE | ~2023-10-16 | MR_ITS ---
EXAMINATION: MR BRAIN WITH AND WITHOUT CONTRAST CLINICAL INFORMATION: Lung cancer staging COMPARISON: CT head 01/24/22 TECHNIQUE: MRI of the brain was obtained using routine sequences before and following administration of intravenous contrast. A total of 4 mL of Gadavist was administered intravenously. FINDINGS: There is no reduced diffusion to suggest acute infarct. Susceptibility weighted sequence is within normal limits. No mass effect, extra-axial collection, midline shift, or other herniation. The 3-D postcontrast sequences are markedly motion degraded. No definite abnormal intracranial enhancement within this constraint. Ventricular caliber is within normal limits for the patient's age. Scattered periventricular and subcortical T2/FLAIR hyperintense foci are nonspecific but likely represent chronic microvascular ischemic change. Intracranial flow voids are preserved. Scattered paranasal sinus polypoid mucosal thickening. Small right mastoid effusion. No focal expansile or destructive osseous lesion is visualized. MR/MR head/brain wo/w con IMPRESSION: Suboptimal evaluation with marked motion degradation on the 3-D postcontrast sequence. Within this constraint, no large focus of abnormal intracranial enhancement is visualized.
[2023-10-16] MEDS: gadobutroL 7.5 ML VIAL IVPUSH (14:44)
== END 2023-10-16 13:54 | disposition home or self-care (01) ==
LOC: HO.MRI 13:53
PROVIDERS: PCP Internal Medicine; Visit Provider Internal Medicine Medical Oncology
DX: C34.90 Malignant neoplasm of unspecified part of unspecified bronchus or lung (principal)
CPT/HCPCS: 70553; A9585

== ENCOUNTER 2023-10-17 09:39 | Outpatient (AMB) | payer OTHER, SELFPAY ==
--- NOTE | 2023-10-17 09:52 | A.OFFVIS_ITS ---
Vital Signs 10/17/23 09:59 Height 5 ft 8 in Weight 95 lb 14.417 oz BMI 14.6 BP 94/62 Blood Pressure Location Rt brachial Position Sitting Pulse 112 H Pulse Source Doppler Pulse Oximetry (%) 95 Oxygen Delivery Method Room Air Intake Visit Reasons: S/p bronch Allergies oseltamivir [From TAMIFLU] Allergy (Unknown, Verified 10/17/23 11:01) SEVERE VOMITING,SHAKING, severe vomiting, vomiting Penicillins [PENICILLINS] Allergy (Unknown, Verified 10/17/23 11:01) RASH- A CHILD HPI HPI S/p bronch: Details: 63-year-old lady, prior 30+ pack-year smoker, with new diagnosis of small-cell lung CA on EBUS, referred for pulmonary follow-up. Patient states that she has been using Combivent and albuterol MDI/nebs with suboptimal control of her dyspnea symptoms. She denies having recent pulmonary function testing. Patient does have multiple first-degree relatives with COPD. She denies exposure to industrial dusts. [facility] Medical History (Updated 10/17/23 @ 11:24 by Horacio Sharp MD) Hx of seizure disorder Lipid disorder Asthma, moderate persistent Depression, major, recurrent Osteoporosis Dyspepsia Breast cancer Chronic low back pain Surgical History Hx of hand surgery History of D&C History of repair of rotator cuff History of tubal ligation History of tonsillectomy History of lumpectomy of left breast (~2006) H/O colectomy H/O colonoscopy Family History Father CVD (cardiovascular disease) Heart problem COPD (chronic obstructive pulmonary disease) Mother Myocardial infarct COPD (chronic obstructive pulmonary disease) Brother Mental health disorder Substance use disorder COPD (chronic obstructive pulmonary disease) Social History Household Members: None Housing: Apartment Alcohol intake: former Patient Tobacco Use Status: Former Tobacco user Quit Date: >10 yrs ago Years Smoked: 25 + e-Cigarette/Vaping Use: Never Used Substance Use Type: Marijuana Do you feel safe in your current relationship?: Yes Do you have thoughts of harming others: None Do you have a plan to hurt others: No Plan Patient : No service: No Current occupational status: disabled Current occupation: Right handed Cognitive needs: No Hearing needs: No Vision needs: Yes Review of Systems Const Denies daytime sleepiness, Denies excessive sweating, Denies fatigue, Denies fever(s), Denies lethargy, Denies malaise, Denies night sweats, Denies snoring and Denies weight loss Eyes Denies blurry vision and Denies itchy eyes ENT Denies nasal congestion, Denies post nasal drip, Denies sinus pain, Denies sinus pressure and Denies other ( Thrush) Card Denies chest pain, Denies pedal edema, Denies dyspnea, Reports dyspnea on exertion, Denies orthopnea and Denies paroxysmal nocturnal dyspnea Resp Denies cough, Denies hemoptysis, Denies excessive phlegm production, Denies dyspnea, Reports dyspnea on exertion, Denies snoring and Denies wheezing GI Denies abdominal pain and Denies heartburn Musc Denies myalgias, Denies arthralgias and Denies joint swelling Skin/Breast Denies rash Neuro Denies memory loss and Denies seizure-like activity Psych Denies abnormal sleep pattern, Denies anxiety and Denies memory loss Endo Denies excessive sweating, Denies fatigue and Denies heat intolerance Juan/Lymph Denies easy bruising Aller/Immun Denies itchy eyes, Denies seasonal rhinorrhea and Denies wheezing Physical Exam Vital Signs: Last Vital Signs Pulse 112 H 10/17/23 09:59 BP 94/62 10/17/23 09:59 Pulse Ox 95 10/17/23 09:59 Oxygen Delivery Method Room Air 10/17/23 09:59 BMI result Body Mass Index 14.6 Const General: no acute distress and alert Nutritional Appearance: not obese Orientation/consciousness: Other orientation findings ( oriented) HEENT Head: Yes atraumatic Eyes General: appearance normal, both eyes and all related structures Sclerae: sclerae normal EOM: EOMs intact bilaterally Neck Neck: Yes supple Lymphatic: no lymphadenopathy noted Resp Effort & Inspection: normal respiratory effort and no use of accessory muscles Auscultation: clear to auscultation bilaterally Cardio Rate: regular rate Rhythm: regular rhythm Heart sounds: no gallops, no murmurs and no rubs Skin General skin exam: other ( warm) Extrem General: No clubbing, No cyanosis and No edema Assessment & Plan Assessment & Plan (1) COPD (chronic obstructive pulmonary disease): Code(s): J44.9 - Chronic obstructive pulmonary disease, unspecified Category: Medical Plan: Likely underlying COPD of unclear severity. Will obtain full PFT. Suboptimally controlled on Combivent and albuterol MDI. Will start on Anoro. Now with an acute bronchitic exacerbation, will treat with a course of Levaquin. (2) Lung cancer: Code(s): C34.90 - Malignant neoplasm of unspecified part of unspecified bronchus or lung Category: Medical Plan: Status post EBUS on 10/09 2023 with pathology showing small cell lung cancer inoperable at this time. Patient is to follow with oncology with likely chemo versus chemo and XRT. Coding Level of Care Code New Pt Level 4 (14006) Diagnoses COPD (chronic obstructive pulmonary disease) J44.9 Lung cancer C34.90
[2023-10-17 09:59] VITALS: BP 94/62; PULSE 112; O2SAT 95; BMI 14.6
== END 2023-10-17 10:24 | disposition home or self-care (01) ==
PROVIDERS: PCP Internal Medicine; Visit Provider Internal Medicine Pulmonary Disease
DX: J44.9 Chronic obstructive pulmonary disease, unspecified (principal); C34.90 Malignant neoplasm of unspecified part of unspecified bronchus or lung; Z87.891 Personal history of nicotine dependence
CPT/HCPCS: 99214

== ENCOUNTER → 2023-10-17 09:39 | Outpatient (BNVA) | payer OTHER, SELFPAY | PROVIDERS: PCP Internal Medicine; Visit Provider Internal Medicine Pulmonary Disease | DX: J44.9 Chronic obstructive pulmonary disease, unspecified (principal); C34.90 Malignant neoplasm of unspecified part of unspecified bronchus or lung; Z79.899 Other long term (current) drug therapy | CPT/HCPCS: 99212 ==

== ENCOUNTER → 2023-10-22 07:55 | Outpatient (REF) | payer OTHER, SELFPAY ==
--- NOTE | 2023-10-22 07:57 | CA_ITS ---
Transthoracic Echocardiogram Patient (Last, First, Middle): Tanja Zaman A Gender: Female Date of : 1960 Age: 63 Procedure Date: 10/22/2023 Procedure Type: Transthoracic Echocardiogram Location: OP Height: 172.72 cm Weight: 43.09 kg BSA: 1.49 m2 Heart Rate: bpm BP: 86 / 62 mmHg Weed Cooking Operator: BLADIMIR Referring MD: Uma Haywood MD Product Support Engineer: Aj Wolff MD Symptoms: Pericardial effusion. Study Quality: Adequate ECG Rhythm: Sinus Conclusions: - 1. Normal LV ejection fraction 55-60% with impaired relaxation filling pattern 2. Normal cardiac valvular Doppler 3. Small to moderate pericardial effusion more prominent near the right-sided chambers without evidence of tamponade 4. Normal RV systolic pressure Findings Left Ventricle Normal left ventricular size, thickness, and systolic function. The visually estimated ejection fraction is between 55-60%. Spectral Doppler is indicative of an impaired relaxation filling pattern. E/E prime ratio is between 8 and 15 consistent with indeterminate filling pressures. Peak GLS is -11.3%, which is severely reduced. Right Ventricle Mildly increased right ventricular cavity size. There is normal right ventricular systolic function. Atria Both atria are normal in size. Interatrial shunt cannot be excluded. Aortic Valve Normal aortic valve structure and function. There is no aortic valve stenosis. There is no aortic valve regurgitation. Mitral Valve There is mild anterior and posterior mitral leaflet thickening. There is mild posterior mitral annular calcification. There is trace mitral valve regurgitation. There is no mitral valve stenosis. Pulmonic Valve The pulmonic valve was not well visualized. Tricuspid Valve Likely normal tricuspid valve structure and function. There is mild tricuspid valve regurgitation. The right ventricular systolic pressure is normal. The right ventricular systolic pressure is 26 mmHg. Normal right atrial pressure. There is no evidence of pulmonary hypertension. Great Vessels The pulmonary artery was not well visualized. There is no dilatation of the ascending aorta measuring 2.70 cm. Venous The inferior vena cava is normal in size and collapses greater than 50% with inspiration. Pericardium/Pleural There is a small circumferential pericardial effusion. There are no definitive echocardiographic findings of tamponade physiology. The inferior vena cava is normal in size with preserved respiratory variability. moderate loculated effusion near the right-sided chambers noted on subdiaphragmatic view without evidence of tamponade Measurements 2D Linear Measurements IVSd: 0.66 0.6-0.9/0.6-1.0 cm LVIDd: 4.10 3.9-5.3/4.2-5.9 cm LVIDd Index: 2.75 2.4-3.2/2.2-3.1 cm/m2 LVIDs: 2.89 2.0-3.6 cm LVPWd: 0.95 0.7-1.1 cm LA Diam: 2.40 2.7-3.8/3.0-4.0 cm LAIDs Index: 1.61 1.5-2.3 cm/m2 LV Mass: 121.13 67-162/88-224 g LV Mass Index: 81.29 43-95/49-115 g/m2 LVOT Diam: 2.00 3.0+(-)1.3 cm 2D Systolic Function EF 4C: 62.50 >55% EF 2C: 49.30 >55% EF BiP: 57.70 >55% Mitral Valve MV Pk E: 0.46 MV PK A: 0.45 MV Decel Time: 200.00 E/A: 1.00 E'Lateral: 5.98 E'Medial: 5.66 E/E' Med: 8.10 E/E' Lat: 7.70 PHT: 59.00 MVA PHT: 3.73 Decel [place]: 2.29 Aortic Valve AoV Pk Juan M: 0.80 AoV Mn Juan M: 0.56 AoV VTI: 0.12 AoV Pk Grad: 3.00 Aov Mn Grad: 1.00 HELEN Cont.VTI: 3.32 LVOT LVOT Pk Juan M: 0.83 LVOT Mn Juan M: 0.47 LVOT VTI: 0.13 LVOT Pk Grad: 3.00 LVOT Mn Grad: 1.00 LVOT Diam: 2.00 LVOT Area: 3.14 Diastolic Function MV Pk E: 0.46 MV Pk A: 0.45 E/A: 1.00 E'Medial: 5.66 E/E' Med: 8.10 E' Laterial: 5.98 E/E' Lat: 7.70 Right Ventricle TAPSE (mm): 17.00 TVS' Juan M: 9.03 Tricuspid Valve TR Pk Juan M: 2.38 TR Pk Grad: 23.00 RA Press: 3.00 RVSP: 26.00 Great Vessels Aorta Sinus of Valsalva: 3.43 2.0-3.[address] Ridge: 2.53 1.7-3.4 cm Ao Asc: 2.70 2.1-3.4 cm Ao Arch: 2.40 Updated in Other Vendor System with Status of Final Aj Wolff MD electronically signed on 10/22/2023 3:57:53 PM with status of Final
== END ==
LOC: HO.CARD 07:55
PROVIDERS: PCP Internal Medicine; Visit Provider Internal Medicine Medical Oncology
DX: I31.39 Other pericardial effusion (noninflammatory) (principal)
CPT/HCPCS: 93306

== ENCOUNTER → 2023-10-22 07:57 | Outpatient (BNV) | payer OTHER, SELFPAY | PROVIDERS: PCP Internal Medicine; Visit Provider Internal Medicine Cardiovascular Disease | DX: I36.1 Nonrheumatic tricuspid (valve) insufficiency (principal); I31.39 Other pericardial effusion (noninflammatory); R93.1 Abnormal findings on diagnostic imaging of heart and coronary circulation | CPT/HCPCS: 93306; 93356 ==

== ENCOUNTER 2023-10-23 14:13 | Outpatient (REF) | payer OTHER, SELFPAY ==
--- NOTE | ~2023-10-23 | US_ITS ---
EXAMINATION: US DIAGNOSTIC ULTRASOUND BREAST, LEFT CLINICAL INFORMATION: Palpable abnormality left breast upper outer quadrant as per patient. Recent diagnosis of lung CA. History of left lumpectomy for left breast CA in 2006. COMPARISON: No relevant prior ultrasound. Correlation made with recent mammography 09/15/2023. TECHNIQUE: Ultrasound of the left breast upper outer quadrant is performed with real-time figueroa scale imaging and color Doppler. FINDINGS: There is no focal suspicious finding. There is no solid mass, architectural abnormality, duct ectasia, or edema in the soft tissue planes. The patient appears to be palpating a ridge of dense fibrocystic tissue in the upper outer quadrant of the left breast. Results are discussed with the patient at time of visit. US/US breast LT limited mamm only IMPRESSION: No findings persistent suspicious for breast malignancy. Patient appears to be palpating a dense ridge of fibrocystic tissue in the upper outer quadrant of the left breast. Recommend the patient return to routine annual screening. ASSESSMENT: BI-RADS 2 - Benign Findings RECOMMENDATION: 1 year F/U This patient's information was entered into a reminder system with a target due date for their next mammogram.
== END 2023-10-23 14:14 | disposition home or self-care (01) ==
LOC: HO.MAMMO 14:13
PROVIDERS: PCP Internal Medicine; Visit Provider Internal Medicine
DX: N63.20 Unspecified lump in the left breast, unspecified quadrant (principal)
CPT/HCPCS: 76642

== ENCOUNTER → 2023-10-23 16:00 | Outpatient (BNV) | payer OTHER, SELFPAY | PROVIDERS: PCP Internal Medicine; Visit Provider Radiology Diagnostic Radiology | DX: N63.21 Unspecified lump in the left breast, upper outer quadrant (principal) | CPT/HCPCS: 76642 ==

== ENCOUNTER → 2023-10-24 08:53 | Day surgery (SDC) | payer OTHER, SELFPAY ==
--- NOTE | ~2023-10-24 | IR_ITS ---
CLINICAL HISTORY: Left lung cancer. The patient presents to interventional radiology for placement of a port for chemotherapy. PROCEDURES: 1. Real-time ultrasound-guided access into the right internal jugular vein after documentation of selected vessel patency, and permanent image storing in the patient records. 2. Placement of a 6.6 German single-lumen power port. CLINICIAN: Rashaad Kirkpatrick PA-C MEDICATIONS: - Versed 1.5 mg, Fentanyl 75 mcg, Lidocaine 1% 10 mL SQ -Antibiotics: Ancef 2g -For additional details, please see nursing flowsheet. Complications: None. Estimated blood loss: <5 ml Specimens: None. Contrast: None. Fluoroscopy time: 1.2 min MODERATE SEDATION TIME: 32 min PROCEDURE NOTE: The procedure, risks, benefits, and alternatives were carefully explained to the patient and written informed consent was obtained. The patient was placed supine on the fluoroscopy table. A timeout was performed. The right neck and chest was prepped and draped in usual sterile fashion. Maximum barrier technique was utilized. Local anesthesia was administered to the access site with 1% lidocaine. Under ultrasound guidance, the right internal jugular vein was accessed with a 5 fr micropuncture set. A 0.035 in wire was advanced into the IVC. A peel-away sheath was advanced over the wire and into the SVC, and the wire was removed. Next, subcutaneous lidocaine was administered to the chest. The port pocket was created after the skin incision, utilizing blunt dissection. Using blunt dissection, a subcutaneous tunnel was created that connects from the port pocket to the venotomy site. Through the peel-away sheath, the 6.6 German port catheter was placed. The catheter position was verified with fluoroscopy to be at the superior vena cava/right atrial junction. The port was connected to the catheter and was placed in the pocket. The venotomy site was closed with a 3-0 Vicryl subcutaneous suture. The port incision site was closed with interrupted 3-0 Vicryl subcutaneous sutures and surgical glue. Prior to closing the skin, 1 g of Ancef solution was placed in the pocket. The port was tested, flushed, and packed with heparin per routine protocol. The patient tolerated the procedure well. The patient was stable after the procedure and was transferred to the PACU. The procedure was performed under moderate sedation and with a dedicated nurse with continuous monitoring of vital signs. A permanent image of the ultrasound the neck and fluoroscopic image of the chest was saved and sent to PACS. FINDINGS: 1. Patent right internal jugular vein 2. Placement of a 6.6 German single lumen power port. 3. Port flushes and aspirates very well with a 10 mL syringe. No pneumothorax. IR/IR cvc insert tunnel w prt/maintenance plumber IMPRESSION: Placement of a 6.6 German single-lumen power port. PLAN: - The patient will be discharged home when stable by sedation protocol. - Port may be used immediately. This procedure was performed by Rashaad Kirkpatrick PA-C, and directly supervised by Dr. Julio
[2023-10-24 09:48] VITALS: BMI 14.9
[2023-10-24 09:52] VITALS: BP 90/55; PULSE 102; RESP 20; TEMP 36.1; O2SAT 97
--- NOTE | 2023-10-24 10:16 | MHC.SHP ---
Pre-Procedural Eval Section A - 24 Hr Update-Section A only Date of Service: 10/24/23 Section B - Complete if H&P > 30 days Chief Complaint: MALIGNANT NEOPLASM LUNG Details of Present Illness: 63 y/o female with hx left breast cancer and newly diagnosed left lung ca who presents for a port for chemotherapy due to poor iv access Relevant Family History (Specify if Yes): No Relevant Social History: None Present Medications: see Short Stay Collaborative assessment Medical History: Significant History History of Previous Operations: Relevant previous surgery/procedure and date(s) (prior hx of right port) Allergies: Allergies Allergy/AdvReac Type Severity Reaction Status Date / Time oseltamivir [From TAMIFLU] Allergy Unknown SEVERE Verified 10/17/23 11:01 VOMITING,SHAKING, severe vomiting, vomiting Penicillins [PENICILLINS] Allergy Unknown RASH- A Verified 10/17/23 11:01 CHILD Review of Systems Sugical H&P ROS: Negative: Cardiovascular and Integumentary and Yes, Specify: Respiratory (chronic dyspnea) and Psychiatric (anxiety) Exam Surgical H&P Exam: Normal: Lungs, Normal: Skin and Normal: Neurological, Not Evaluated: HEENT and Significant Findings: Heart (intermittent tachycardia, regular rhythm ) Plan Diagnosis/Plan: Unchanged I have reviewed the history and physical and performed a pertinent physical examination on my patient. No changes have occurred unless specified. Right port placement Time Spent With Patient Time: Total time managing care of this patient today ____ minutes.
[2023-10-24 10:40] LABS: Partial Thromboplastin Time 29.3 SEC (26.0-36.8)
== END | disposition home or self-care (01) ==
PROVIDERS: Physician Assistant Surgical; Radiology Vascular & Interventional Radiology; PCP Internal Medicine; Visit Provider Internal Medicine Medical Oncology
DX: C34.92 Malignant neoplasm of unspecified part of left bronchus or lung (principal); Z85.3 Personal history of malignant neoplasm of breast; Z88.0 Allergy status to penicillin; E78.9 Disorder of lipoprotein metabolism, unspecified; J45.40 Moderate persistent asthma, uncomplicated; F33.9 Major depressive disorder, recurrent, unspecified; G40.909 Epilepsy, unspecified, not intractable, without status epilepticus; J44.9 Chronic obstructive pulmonary disease, unspecified; F12.20 Cannabis dependence, uncomplicated; R06.00 Dyspnea, unspecified; R00.0 Tachycardia, unspecified
CPT/HCPCS: 36415; 36561; 76937; 85610; 85730; 99152; 99153; A4364; C1769; C1788; J0736; J1642; J1644; J2250; J2310; J3010

== ENCOUNTER → 2023-10-24 10:12 | Outpatient (BNV) | payer OTHER, SELFPAY | PROVIDERS: PCP Internal Medicine; Visit Provider Physician Assistant Surgical | DX: C34.92 Malignant neoplasm of unspecified part of left bronchus or lung (principal) | CPT/HCPCS: 36561; 76937 ==

== ENCOUNTER 2023-11-03 09:45 | Outpatient (AMB) | payer OTHER, SELFPAY ==
--- NOTE | 2023-11-03 10:45 | AM.OFFVISNUR ---
Intake Intake Visit Reasons: Prolia Allergies oseltamivir [From TAMIFLU] Allergy (Unknown, Verified 10/17/23 11:01) SEVERE VOMITING,SHAKING, severe vomiting, vomiting Penicillins [PENICILLINS] Allergy (Unknown, Verified 10/17/23 11:01) RASH- A CHILD Office Meds Prolia 60 mg/mL subcutaneous syringe Performing Provider: Arnav Mas MD [place] [facility] [place] Administered by: Rosa Carter LPN on 11/03/23 10:46 Dose Route Admin Location Dispensed Lot Number Expiration Date [facility] [place]NOTE 2[place] Hydraulic Miner 60 mg subcut Right upper arm 1 mL [id number] 04/15/26 AMGEN Coding Assessment & Plan Assessment & Plan Orders: Orders AMB Denosumab Injection Patient Supplied Today M81.0 - Age-related osteoporosis without current pathological fracture Medications: New Prolia (denosumab) 60 mg subcut ONCE 1 mL 0RF NS M81.0 - Age-related osteoporosis without current pathological fracture
== END 2023-11-03 16:24 | disposition home or self-care (01) ==
PROVIDERS: PCP Internal Medicine; Visit Provider Internal Medicine Endocrinology, Diabetes & Metabolism
DX: M81.0 Age-related osteoporosis without current pathological fracture (principal)

== ENCOUNTER → 2023-11-03 09:45 | Outpatient (BNVA) | payer OTHER, SELFPAY | PROVIDERS: PCP Internal Medicine; Visit Provider Internal Medicine Endocrinology, Diabetes & Metabolism | DX: M81.0 Age-related osteoporosis without current pathological fracture (principal); Z79.620 Long term (current) use of immunosuppressive biologic | CPT/HCPCS: 96372; J0897 ==

== ENCOUNTER 2023-11-04 10:45 | Outpatient (AMB) | payer OTHER, SELFPAY ==
[2023-11-04 10:47] VITALS: BP 98/68; PULSE 124; BMI 15.1
--- NOTE | 2023-11-04 10:47 | MHC.OFFVIS ---
Vital Signs 11/04/23 10:47 Height 5 ft 7 in Weight 96 lb 8.999 oz BMI 15.1 BP 98/68 Blood Pressure Location Rt brachial Position Sitting Pulse 124 H Pulse Source Pulse Oximeter Intake Visit Reasons: Osteoporosis Intake Note: Patient present today for Osteoporosis follow up visit. 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 Accompanied by: Brother Allergies oseltamivir [From TAMIFLU] Allergy (Unknown, Verified 11/04/23 10:52) SEVERE VOMITING,SHAKING, severe vomiting, vomiting Penicillins [PENICILLINS] Allergy (Unknown, Verified 11/04/23 10:52) RASH- A CHILD Medication List - Last Reconciled 11/04/23 by Arnav Mas MD albuterol sulfate 90 mcg/actuation (ProAir HFA) 1 inh inhalation QID PRN 30 days albuterol sulfate 2.5 mg (3 mL) inhalation Q4H PRN 90 days [Boost chocolate flavor 1 unit PO BID-TID 30 days] calcium citrate 500 mg (2 x 250 mg calcium) PO BID chair, wheel (Wheel chair) As Directed cholecalciferol (vitamin D3) 50 mcg PO DAILY denosumab (Prolia) 60 mg subcut [id number] dronabinol (Marinol) 2.5 mg PO BID escitalopram oxalate 20 mg PO DAILY folic acid 1 mg PO DAILY hospital bed Semi electric hospital bed with 1/2 rails and air mattress overlay 5'7 , 100 lbs ipratropium-albuterol 20-100 mcg/actuation (Combivent Respimat) 1 puff inhalation QID levetiracetam 500 mg PO BID lidocaine HCl 2% (Lidocaine Viscous) 1 appl mucous membrane BID loperamide (Imodium A-D) 2 mg PO Q6H PRN lorazepam 0.5 mg PO BID PRN lorazepam 1 mg PO BID PRN Magic Mouthwash Diphen/Nystat/Antacid 1:1:1 10 mL PO QID mirtazapine 15 mg PO DAILY ondansetron 8 mg PO Q8H oxycodone 5 mg PO Q6H PRN simvastatin 80 mg PO DAILY 90 days umeclidinium-vilanterol 62.5-25 mcg/actuation (Anoro Ellipta) 1 inh inhalation DAILY 30 days [Updraft machine As directed] [Wheelchair As directed] [wheelchair with leg and foot rests As directed] HPI Comments Details: 63 yo female, today for follow-up visit, for osteoporosis follow-up by She had her 1st dose of Reclast on 12/04/18. second dose 12/09/2019. She also received a 3rd dose last year She has history of left breast cancer diagnosed on 2006, s/p surgery, chemo and XRT, she has osteoporosis, she was on Raloxifene 60 mg daily started 04/22/15 , not clear why was stopped, she is not clear if she was on Bisphosphonates. She has PMH of COPD, low vitamin D, depression on SSRI. she was smoker quit many years ago. She states she fell and fracture her coccyx and sacrum. I reviewed the Xrays and there was no fractures , + GERD used to be on PPI, + FH of fractures or osteoporosis in mother and grandmother, denies nephrolithiasis. Calcium intake: calcium citrate 500 mg BID Vitamin D3 2000 IU/day Current: BMD 09/04/21 0.446 g/cm2, Z-score -3.3, T-score -4.5, osteoporosis, 24.0% decrease from previous, 32.2% decrease from baseline (<5% hoang 04/29/2019 DEXA scan AP SPINE L1-L4: Current: BMD 0.742 g/cm2, Z-score -1.8, T-score -3.6, osteoporosis, 0.3% decrease from previous, 2.3% increase from baseline (<5% change is not significant). Prior: BMD 0.744 g/cm2. Baseline: BMD 0.725 g/cm2. Of coronary artery bases The bowel or bowel or Mammography April LEFT FEMUR, NECK: Current: BMD 0.654 g/cm2, Z-score -1.1, T-score -2.8, osteoporosis. Prior: BMD 0.664 g/cm2. Baseline: BMD 0.708 g/cm2. LEFT FEMUR, TOTAL: Discarded yesterday. 4. Slight thickening isolated females Current: BMD 0.587 g/cm2, Z-score -1.9, T-score -3.3, osteoporosis, 4.4% decrease from previous, 10.8% decrease from baseline (<5% change is not significant). Prior: BMD 0.614 g/cm2. Baseline: BMD 0.658 g/cm2. LEFT FOREARM RADIUS 33%: BMD 0.757 g/cm2, Z-score -0.4, T-score -1.4, osteopenia. Laboratory Tests 04/15/18 05/14/18 01/15/19 10:45 11:09 13:55 Hgb Hct Creatinine Est GFR (Non-Af Amer) Calcium Alkaline Phosphatase Albumin Collgn I C-Telopeptide 25-OH Vitamin D Total Thyroxine (T4) 8.6 TSH 3rd Generation 1.31 PTH Intact 18 11/11/19 11/11/19 02/20/20 13:55 13:55 22:51 Hgb Hct Creatinine 1.12 Est GFR (Non-Af Amer) 49 Calcium 9.6 Alkaline Phosphatase 44 Albumin 3.9 Collgn I C-Telopeptide 63 25-OH Vitamin D Total 48.5 Thyroxine (T4) TSH 3rd Generation PTH Intact 02/20/20 22:51 Hgb 13.7 Hct 41.1 Creatinine Est GFR (Non-Af Amer) Calcium Alkaline Phosphatase Albumin Collgn I C-Telopeptide 25-OH Vitamin D Total Thyroxine (T4) TSH 3rd Generation PTH Intact She is currently on Prolia q mos after completing a course of Evenity last year [facility] Medical History (Updated 10/17/23 @ 12:09 by Uma Haywood MD) Hx of seizure disorder Lipid disorder Asthma, moderate persistent Depression, major, recurrent Osteoporosis Dyspepsia Breast cancer Chronic low back pain Surgical History (Updated 11/04/23 @ 10:53 by KLEBER Colin) History of lung biopsy Hx of hand surgery History of D&C History of repair of rotator cuff History of tubal ligation History of tonsillectomy History of lumpectomy of left breast (~2006) H/O colectomy H/O colonoscopy Family History Father CVD (cardiovascular disease) Heart problem COPD (chronic obstructive pulmonary disease) Mother Myocardial infarct COPD (chronic obstructive pulmonary disease) Brother Mental health disorder Substance use disorder COPD (chronic obstructive pulmonary disease) Social History Household Members: None Housing: Apartment Alcohol intake: former Patient Tobacco Use Status: Former Tobacco user Quit Date: >10 yrs ago Years Smoked: 25 + e-Cigarette/Vaping Use: Never Used Substance Use Type: Marijuana service: No Current occupational status: disabled Current occupation: Right handed Cognitive needs: No Hearing needs: No Vision needs: Yes Physical Exam Vital Signs: Last Vital Signs Pulse 124 H 11/04/23 10:47 BP 98/68 11/04/23 10:47 BMI result Body Mass Index 15.1 Assessment & Plan Assessment & Plan (1) Osteoporosis: Code(s): M81.0 - Age-related osteoporosis without current pathological fracture Category: Medical Qualifiers: Osteoporosis type: age-related Presence of current pathological fracture: without current pathological fracture Qualified Code(s): M81.0 - Age-related osteoporosis without current pathological fracture Plan: This is a 62-year-old white female with a history of osteoporosis with very low bone density received 3 doses of Reclast with declining bone density in the femur. Secondary workup was negative. Patient is currently on Prolia after receiving 2 years' worth of Evenity The plan is to continue the Prolia. We will recheck DEXA bone density Orders: Orders XR DEXA axial skeleton Today M81.0 - Age-related osteoporosis without current pathological fracture Medications: Refilled calcium citrate 500 mg (2 x 250 mg calcium) PO BID 360 tabs 4RF Coding Level of Care Code Est Pt Level 3 (12368) Diagnoses Age-related osteoporosis without current pathological fracture M81.0 Osteoporosis type: age-related Presence of current pathological fracture: without current pathological fracture
== END 2023-11-04 11:12 | disposition home or self-care (01) ==
PROVIDERS: PCP Internal Medicine; Visit Provider Internal Medicine Endocrinology, Diabetes & Metabolism
DX: M81.0 Age-related osteoporosis without current pathological fracture (principal)
CPT/HCPCS: 99213

== ENCOUNTER → 2023-11-04 10:45 | Outpatient (BNVA) | payer OTHER, SELFPAY | PROVIDERS: PCP Internal Medicine; Visit Provider Internal Medicine Endocrinology, Diabetes & Metabolism | DX: M81.0 Age-related osteoporosis without current pathological fracture (principal) | CPT/HCPCS: 99212 ==

== ENCOUNTER 2024-01-17 10:02 | Outpatient (REF) | payer OTHER, SELFPAY ==
--- NOTE | 2024-01-17 10:00 | PFT_ITS ---
Flows: FEV1: 84 % of predicted at 2.17 L FVC: 109 % of predicted at 3.62 L FEV1/FVC: 60 % Bronchodilator response: Absent Volumes: Patient not able to complete lung volumes maneuvers. Diffusion capacity: Moderately decreased Impression: Mild obstructive ventilatory defect with no bronchodilator response. Patient unable to perform lung volume maneuvers. Decreased diffusion capacity suggests emphysema. MTDD
[2024-01-17 10:48] VITALS: PULSE 128; RESP 16; O2SAT 97
== END 2024-01-17 10:03 | disposition home or self-care (01) ==
LOC: HO.RESP 10:02
PROVIDERS: PCP Internal Medicine; Visit Provider Internal Medicine Pulmonary Disease
DX: J44.9 Chronic obstructive pulmonary disease, unspecified (principal)
CPT/HCPCS: 94010; 94640; 94727; 94729

== ENCOUNTER 2024-02-11 07:43 | Outpatient (REF) | payer OTHER, SELFPAY ==
--- NOTE | ~2024-02-11 | CT_ITS ---
EXAMINATION: CT CHEST WITH CONTRAST CLINICAL INFORMATION: Follow-up small cell carcinoma lung. COMPARISON: Outside CT chest 09/26/2023 from [facility]. Report not currently available. TECHNIQUE: Multidetector volumetric CT imaging of the chest was obtained after the administration of 65 mL of Omnipaque 350 intravenous contrast without immediate adverse reactions. Axial MIP volume rendering provided. Sagittal and coronal reformatted images were obtained. This CT examination was performed using dose optimization techniques as appropriate, variously including the following: *Automated exposure control *Adjustment of mA and/or kV according to patient size (this includes techniques or standardized protocols for targeted exams where dose is matched to indication/reason for exam; i.e. extremities or head) *Use of iterative reconstruction technique DLP: 59 mGy-cm FINDINGS: LUNGS: -Moderate to severe centrilobular and paraseptal emphysema. -More inferiorly, the subpleural left upper lung mass with traction bronchiectasis and adjacent fibrosis and internal calcification is also somewhat smaller on today's exam, measuring estimated 2.9 x 2.1 cm, previously 3.5 x 2.1 cm. -The left upper lobe lingular segment nodule previously seen measuring 4 x 5 mm, has increased in size, measuring 6 x 10 mm currently (series 4, image 32). -Slightly more superiorly, in the far medial lingula near the pleural reflection, the previously seen 6 mm stellate nodule has resolved with no discernible residua. -Right apical nodular pleural parenchymal scarring is unchanged in appearance. -3 mm lateral right upper lobe nodule (series 10, image 32) is unchanged. -4 mm pleural-based nodule within the minor fissure is unchanged (series 10, image 103). -2 subpleural nodules in the posterior aspect of the right lower lobe medially are unchanged (series 10, image 104) -4 mm lateral anterior left lower lobe nodule is unchanged (series 10, image 127). -9 mm nodule in the lingular segment anteriorly is unchanged in size and appearance (series 10, image 80). -Several left upper lobe lateral and anterior groundglass nodules measuring up to 4 mm are stable. MEDIASTINUM: -Redemonstrated is a mass invading the left superior hilum/mediastinum, encasing the left superior pulmonary vein and left main pulmonary artery. This currently measures approximately 5.1 x 3.9 x 5.5 cm, essentially unchanged when measured similarly. Severe narrowing of the left upper lobe segmental pulmonary artery is again noted, and moderate narrowing of the left main pulmonary artery is present. The left superior pulmonary vein appears obliterated. There are subtle calcifications within the main aspect of the mass. There is encasement of the upper lobe segmental bronchus. This remains patent. -The lymph node lateral to the mid aortic arch appears slightly smaller on today's exam, estimated diameter is 6 mm, previous diameter 9 mm. -Aorta is nonaneurysmal and mildly calcified. -Main pulmonary artery is small from mass effect from the left superior hilar mass. No definite pulmonary embolism is evident on this exam. -No additional mediastinal adenopathy is appreciated, as before. -There is a moderate-sized pericardial effusion, which appears similar. PLEURA: The previously seen superior and lateral upper lobe pleural component invading the chest wall has essentially resolved with no residual seen. -No pleural effusions. AXILLA/CHEST WALL: No suspicious lymphadenopathy or mass. -Right chest port in place with tip terminating in the cavoatrial junction. UPPER ABDOMEN: There is a probable small type I hiatus hernia. -There are medial left renal cysts in the upper pole. Imaged liver is unremarkable. -The adrenal glands appear normal. -There are a few diverticula in the splenic flexure. OSSEOUS STRUCTURES: No suspicious lytic or blastic bone lesions. CT/CT chest w IV con IMPRESSION: 1. Main mass invading the superior left mediastinum is similar in size and appearance when compared with 09/26/2023 CT. No new mediastinal adenopathy. 2. A preaortic lymph node is slightly smaller, measuring 6 mm currently, previously 9 mm. 3. A previously seen pleural mass invading the left chest wall, in the left upper lobe laterally has resolved on today's examination. 4. The main subpleural upper lobe lateral mass with traction bronchiectasis and abutting fibrosis is slightly smaller on today's exam as described above. 5. Left upper lobe lingular far medial nodule has resolved. 6. A more inferior left upper lobe pulmonary nodule in the lingula has increased slightly in size. 7. Additional scattered small nodules measuring up to 4 and 5 mm, and 9 mm in the anterior lingula, are stable. There are no new pulmonary nodules seen. 8. Moderate sized pericardial effusion is stable. 9. No pleural effusions. 10. Additional ancillary findings as discussed in the body of the report. Overall, mixed response to treatment, with majority being positive. Electronically signed by: Sergio Julio MD 02/13/2024 12:18 PM EDT
[2024-02-11] MEDS: iohexoL 350 MG/ML 100 ML INFUS..BTL 65 ML IV (08:35)
== END 2024-02-11 07:44 | disposition home or self-care (01) ==
LOC: HO.CT 07:43
PROVIDERS: PCP Internal Medicine; Visit Provider Internal Medicine Medical Oncology
DX: C34.90 Malignant neoplasm of unspecified part of unspecified bronchus or lung (principal)
CPT/HCPCS: 71260; Q9967

== ENCOUNTER → 2024-02-11 07:44 | Outpatient (BNV) | payer OTHER, SELFPAY | PROVIDERS: PCP Internal Medicine; Visit Provider Radiology Diagnostic Radiology | DX: C34.90 Malignant neoplasm of unspecified part of unspecified bronchus or lung (principal) | CPT/HCPCS: 71260 ==

== ENCOUNTER 2024-02-13 10:29 | Outpatient (AMB) | payer OTHER, SELFPAY ==
[2024-02-13 10:41] VITALS: BP 92/64; PULSE 126; O2SAT 96
--- NOTE | 2024-02-13 10:41 | A.OFFVIS_ITS ---
Vital Signs 02/13/24 10:41 Height 5 ft 7 in BP 92/64 Blood Pressure Location Lt brachial Position Sitting Pulse 126 H Pulse Source Pulse Oximeter Pulse Oximetry (%) 96 Oxygen Delivery Method Room Air Intake Visit Reasons: asthma Pediatric Orthodontist Required: No Allergies oseltamivir [From TAMIFLU] Allergy (Unknown, Verified 02/13/24 10:45) SEVERE VOMITING,SHAKING, severe vomiting, vomiting Penicillins [PENICILLINS] Allergy (Unknown, Verified 02/13/24 10:45) RASH- A CHILD HPI HPI asthma: Details: 63-year-old lady, prior 30+ pack-year smoker, with new diagnosis of small-cell lung CA on EBUS, now followed for COPD. At the last office visit she was started on Anoro with significantly improved symptom control. She is also under oncology care for underlying small cell lung cancer. [facility] Medical History (Updated 10/17/23 @ 12:09 by Uma Haywood MD) Hx of seizure disorder Lipid disorder Asthma, moderate persistent Depression, major, recurrent Osteoporosis Dyspepsia Breast cancer Chronic low back pain Surgical History (Updated 12/08/23 @ 10:51 by Uma Haywood MD) History of lung biopsy Hx of hand surgery History of D&C History of repair of rotator cuff History of tubal ligation History of tonsillectomy History of lumpectomy of left breast (~2006) H/O colectomy H/O colonoscopy Family History Father CVD (cardiovascular disease) Heart problem COPD (chronic obstructive pulmonary disease) Mother Myocardial infarct COPD (chronic obstructive pulmonary disease) Brother Mental health disorder Substance use disorder COPD (chronic obstructive pulmonary disease) Social History Household Members: None Housing: Apartment Alcohol intake: former Patient Tobacco Use Status: Former Tobacco user Years Smoked: 25 + e-Cigarette/Vaping Use: Never Used Substance Use Type: Marijuana service: No Current occupational status: disabled Current occupation: Right handed Cognitive needs: No Hearing needs: No Vision needs: Yes Review of Systems Const Denies daytime sleepiness, Denies excessive sweating, Denies fatigue, Denies fever(s), Denies lethargy, Denies malaise, Denies night sweats, Denies snoring and Denies weight loss Eyes Denies blurry vision and Denies itchy eyes ENT Denies nasal congestion, Denies post nasal drip, Denies sinus pain, Denies sinus pressure and Denies other ( Thrush) Card Denies chest pain, Denies pedal edema, Denies dyspnea, Denies orthopnea and Denies paroxysmal nocturnal dyspnea Resp Denies cough, Denies hemoptysis, Denies excessive phlegm production, Denies dyspnea, Denies snoring and Denies wheezing GI Denies abdominal pain and Denies heartburn Musc Denies myalgias, Denies arthralgias and Denies joint swelling Skin/Breast Denies rash Neuro Denies memory loss and Denies seizure-like activity Psych Denies abnormal sleep pattern, Denies anxiety and Denies memory loss Endo Denies excessive sweating, Denies fatigue and Denies heat intolerance Jaun/Lymph Denies easy bruising Aller/Immun Denies itchy eyes, Denies seasonal rhinorrhea and Denies wheezing Physical Exam Vital Signs: Last Vital Signs Pulse 126 H 02/13/24 10:41 BP 92/64 02/13/24 10:41 Pulse Ox 96 02/13/24 10:41 Oxygen Delivery Method Room Air 02/13/24 10:41 Const General: no acute distress and alert Nutritional Appearance: cachectic Orientation/consciousness: Other orientation findings ( oriented) HEENT Head: Yes atraumatic Eyes General: appearance normal, both eyes and all related structures Sclerae: sclerae normal EOM: EOMs intact bilaterally Neck Neck: Yes supple Lymphatic: no lymphadenopathy noted Resp Effort & Inspection: normal respiratory effort and no use of accessory muscles Auscultation: clear to auscultation bilaterally Cardio Rate: regular rate Rhythm: regular rhythm Heart sounds: no gallops, no murmurs and no rubs Skin General skin exam: other ( warm) Extrem General: No clubbing, No cyanosis and No edema Assessment & Plan Assessment & Plan (1) COPD (chronic obstructive pulmonary disease): Code(s): J44.9 - Chronic obstructive pulmonary disease, unspecified Category: Medical Plan: Well controlled on Anoro and albuterol MDI. Continue current regimen. (2) Small cell lung cancer: Code(s): C34.90 - Malignant neoplasm of unspecified part of unspecified bronchus or lung Category: Medical Plan: Status post EBUS biopsy. Now under oncology care. Coding Level of Care Code Est Pt Level 3 (67772) Diagnoses COPD (chronic obstructive pulmonary disease) J44.9 Small cell lung cancer C34.90
== END 2024-02-13 11:11 | disposition home or self-care (01) ==
PROVIDERS: PCP Internal Medicine; Visit Provider Internal Medicine Pulmonary Disease
DX: J44.9 Chronic obstructive pulmonary disease, unspecified (principal); C34.90 Malignant neoplasm of unspecified part of unspecified bronchus or lung
CPT/HCPCS: 99213

== ENCOUNTER → 2024-02-13 10:29 | Outpatient (BNVA) | payer OTHER, SELFPAY | PROVIDERS: PCP Internal Medicine; Visit Provider Internal Medicine Pulmonary Disease | DX: J44.9 Chronic obstructive pulmonary disease, unspecified (principal); C34.90 Malignant neoplasm of unspecified part of unspecified bronchus or lung; Z87.891 Personal history of nicotine dependence | CPT/HCPCS: 99212 ==

== ENCOUNTER 2024-03-21 18:33 | Inpatient (IN) | payer OTHER, SELFPAY ==
--- NOTE | ~2024-03-21 | CT_ITS ---
EXAMINATION: CT HEAD WITHOUT CONTRAST CLINICAL INFORMATION: Altered mental status. Metastatic disease. Toxic ingestion. COMPARISON: Brain MRI from 10/16/2023. TECHNIQUE: Contiguous axial imaging was performed from the skull base to vertex without intravenous administration of contrast. This CT examination was performed using dose optimization techniques as appropriate, variously including the following: *Automated exposure control. *Adjustment of mA and/or kV according to patient size (this includes techniques or standardized protocols for targeted exams where dose is matched to indication/reason for exam; i.e. extremities or head). *Use of iterative reconstruction technique. DLP: 1411 mGy-cm FINDINGS: Significantly motion degraded exam. Compared to exam from 10/16/2023, there appears to be development of extensive multifocal hyperattenuating lesions throughout the bilateral cerebral hemispheres, some of which demonstrate moderate perilesional edema. The poorly defined lesions appear to measure up to 1.5 cm and size. No overt evidence of acute intracranial hemorrhage. No territorial loss of figueroa-white matter differentiation. The ventricles are normal in morphology and size. No evidence for obstructive hydrocephalus. No midline shift. No acute soft tissue or osseous abnormalities. The mastoid air cells and visualized paranasal sinuses are clear. CT/CT head/brain wo IV con IMPRESSION: Significantly motion degraded exam. Compared to exam from 10/16/2023, there appears to be development of extensive multifocal metastatic disease throughout the bilateral cerebral hemispheres. The poorly defined lesions appear to measure up to 1.5 cm and size. No overt evidence of acute intracranial hemorrhage. No demonstrated territorial loss of figueroa-white matter differentiation. Electronically signed by: Abrahan Tohmas DO 03/22/2024 12:40 AM EDT
[2024-03-21 18:33] VITALS: BP 126/62; PULSE 90; O2SAT 98
--- NOTE | 2024-03-21 18:40 | ED.AMS ---
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 Per EMS, the patient was found in her bed, unresponsive with pinpoint pupils. EMS was called to the scene, 4 mg of intranasal Narcan were administered, the patient became alert. EMS reports that the patient uses Percocet for her cancer related pain. Her medications are on a locked box, she is the only individual that has access to the box. No one was able to do a pill count.EMS also reports that prior to administering Narcan, patient was becoming more responsive, however was extremely lethargic. It was noted that she had become incontinent of urine, it was suspect that she had a breakthrough seizure and that they were witnessing a postictal phase. Narcan was still administered. Related Data Home Medications ?Medication ?Instructions ?Recorded ?Confirmed mirtazapine 15 mg tablet 15 mg PO DAILY 03/17/20 10/27/23 folic acid 1 mg tablet 1 mg PO DAILY 11/14/20 10/27/23 levetiracetam 500 mg tablet 500 mg PO BID 04/30/23 10/27/23 escitalopram oxalate 20 mg tablet 20 mg PO DAILY 09/30/23 10/27/23 sennosides 8.6 mg tablet (senna) 8.6 mg PO BID 11/17/23 11/17/23 Previous Rx's ?Medication ?Instructions ?Recorded albuterol sulfate 2.5 mg/3 mL 2.5 mg (3 mL) inhalation Q4H PRN 01/15/22 (0.083 %) solution for nebulization bronchospasm 90 days #90 mL ipratropium 20 mcg-albuterol 100 1 puff inhalation QID #12 mL 04/12/22 mcg/actuation mist for inhalation (Combivent Respimat) Updraft machine #1 ea 09/23/23 Wheelchair #1 ea 09/30/23 lorazepam 1 mg tablet 1 mg PO BID PRN anxiety #60 tabs 09/30/23 wheelchair with leg and foot rests #1 ea 10/01/23 Boost chocolate flavor 1 unit PO BID-TID 30 days #90 10/03/23 multiple units chair, wheel (Wheel chair) #1 ea 10/03/23 umeclidinium 62.5 mcg-vilanterol 1 inh inhalation DAILY 30 days #1 10/17/23 25 mcg/actuation powdr for ea inhalation (Anoro Ellipta) Magic Mouthwash 10 ml PO QID #240 mL 10/24/23 Diphen/Nystat/Antacid 1:1:1 240 mL suspension cholecalciferol (vitamin D3) 50 50 mcg PO DAILY #90 caps 10/24/23 mcg (2,000 unit) capsule loperamide 2 mg capsule (Imodium 2 mg PO Q6H PRN Diarrhea #60 caps 10/24/23 A-D) denosumab 60 mg/mL subcutaneous 60 mg subcut [id number] #1 mL 10/29/23 syringe (Prolia) hospital bed #1 ea 10/31/23 lidocaine HCl 2 % mucosal solution 1 appl mucous membrane BID #240 mL 10/31/23 (Lidocaine Viscous) calcium citrate 500 mg (2 x 250 mg calcium) PO BID 11/04/23 #360 tabs oxycodone 5 mg tablet 5 mg PO Q6H PRN Breakthrough Pain, 11/06/23 Moderate #40 tabs morphine 30 mg tablet,extended 30 mg PO Q12H #60 tabs 11/20/23 release (MS Contin) promethazine [address] Q6H PRN Nausea And 01/01/24 suppository Vomiting #50 ea simvastatin 80 mg tablet 80 mg PO DAILY 90 days #90 tabs 01/09/24 albuterol sulfate 90 mcg/actuation 1 puff inhalation QID PRN for 02/09/24 aerosol inhaler wheezing #6.7 ea oxycodone 10 mg tablet 10 mg PO Q6H PRN #30 tabs 02/17/24 lorazepam 0.5 mg tablet 0.5 mg PO BID PRN Anxiety #60 tabs 03/05/24 ondansetron 8 mg disintegrating 8 mg PO Q8H #60 tabs 03/05/24 tablet oxycodone 5 mg tablet 5 mg PO Q6H PRN Breakthrough Pain, 03/05/24 Moderate #60 tabs Allergies Allergy/AdvReac Type Severity Reaction Status Date / Time oseltamivir [From TAMIFLU] Allergy Unknown SEVERE Verified 03/21/24 18:49 VOMITING,SHAKING, severe vomiting, vomiting Penicillins [PENICILLINS] Allergy Unknown RASH- A Verified 03/21/24 18:49 CHILD Review of Systems Review of Systems: Yes all other systems are reviewed and are negative [facility] Past Medical History Attestation statement: The following information was validated with the patient. Medical History (Updated 03/22/24 @ 01:11 by DAMIEN Crystal) Hx of seizure disorder Lipid disorder Asthma, moderate persistent Depression, major, recurrent Osteoporosis Dyspepsia Breast cancer Chronic low back pain Surgical History (Updated 12/08/23 @ 10:51 by Uma Haywood MD) History of lung biopsy Hx of hand surgery History of D&C History of repair of rotator cuff History of tubal ligation History of tonsillectomy History of lumpectomy of left breast (~2006) H/O colectomy H/O colonoscopy Family History Family History Father CVD (cardiovascular disease) Heart problem COPD (chronic obstructive pulmonary disease) Mother Myocardial infarct COPD (chronic obstructive pulmonary disease) Brother Mental health disorder Substance use disorder COPD (chronic obstructive pulmonary disease) Social History Social History Household Members: None Housing: Apartment Alcohol intake: former Patient Tobacco Use Status: Former Tobacco user Years Smoked: 25 + e-Cigarette/Vaping Use: Never Used Substance Use Type: Marijuana Advance Directives: No Advance Directives Information Provided: No service: No Current occupational status: disabled Current occupation: Right handed Cognitive needs: No Hearing needs: No Vision needs: Yes Physical Exam ED Vital Signs: Vital Signs - 24 hr 03/21/24 19:33 03/21/24 23:09 Pulse Rate 86 82 Respiratory Rate 20 19 Blood Pressure 135/93 H Pulse Oximetry 98 97 Oxygen Delivery Method Room Air Room Air BMI result Body Mass Index 18.0 Const Other: Awake, no sign of head trauma on exam, cachectic, Orientation/consciousness: oriented to person HENCO Other: Dry oral mucosa Eyes Other: Pupils are equal, reactive to light, not pinpoint Resp Effort & Inspection: normal respiratory effort Cardio Other: Normal peripheral perfusion Skin Other: Warm dry, no rash Neuro General: oriented to person, no focal motor deficits and CN's II-XI intact bilaterally Psych Other: Patient can not be settled, she keeps changing position in bed she is taking her clothes off, she will not sit still, Course Reevaluation(s) Reevaluation #1: At 8:12 p.m. I reached out to poor control. I relate information in regard to the patient's chemistries, urine toxicology and ethanol. The Tylenol and aspirin levels were negative. The only recommendation is to repeat a 4 hour Tylenol level, and obviously continue to observe for respiratory depression. She will be due for a repeat Tylenol level at 10:30 p.m. Time: 08:12 Consultations Consultation #1: Poison control Time: 20:15 Medications Administered Discontinued Medications Generic Name Dose Route Start Last Admin Trade Name Freq PRN Reason Stop Dose Admin Droperidol 1.25 mg 03/21/24 21:45 03/21/24 22:01 Droperidol 5 Mg/2 Ml Vial IVPUSH 03/21/24 21:46 1.25 mg ONCE ONE Administration Sodium Chloride 500 mls @ 500 mls/hr 03/21/24 18:38 03/21/24 20:28 Ns IV 03/21/24 19:37 Infused .Q1H ONE Infusion Levetiracetam 500 mg in 100 mls @ 400 mls/hr 03/21/24 20:26 03/21/24 20:56 Keppra IV 03/21/24 20:40 Infused ONCE ONE Infusion Lorazepam 1 mg 03/21/24 19:44 03/21/24 19:59 Lorazepam 2 Mg/Ml Vial IVPUSH 03/21/24 19:45 1 mg ONCE ONE Administration Lorazepam 2 mg 03/21/24 20:29 03/21/24 20:39 Lorazepam 2 Mg/Ml Vial IVPUSH 03/21/24 20:30 2 mg ONCE ONE Administration Midazolam HCl 2 mg 03/21/24 23:04 03/21/24 23:10 Midazolam Hcl/Pf 2 Mg/2 Ml Vial IVPUSH 03/21/24 23:05 2 mg ONCE ONE Administration Olanzapine 10 mg 03/21/24 18:41 03/21/24 18:48 Olanzapine 10 Mg Vial IM 03/21/24 18:42 10 mg ONCE ONE Administration Medical Decision Making Medical Decision Making MDM Narrative: 63-year-old female with a history of 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 Per EMS, the patient was found in her bed, unresponsive with pinpoint pupils. EMS was called to the scene, 4 mg of intranasal Narcan were administered, the patient became alert. EMS reports that the patient uses Percocet for her cancer related pain. Her medications are on a locked box, she is the only individual that has access to the box. No one was able to do a pill count. EMS also reports that prior to administering Narcan, patient was becoming more responsive, however was extremely lethargic. It was noted that she had become incontinent of urine, it was suspect that she had a breakthrough seizure and that they were witnessing a postictal phase. Narcan was still administered. Problem: Cancer patient with metastatic disease to the brain History: Per EMS I have considered the following differential diagnoses: SI, unintentional overdose, toxic ingestion, electrolyte abnormality, breakthrough seizure Plan: It is unclear what the patient actually consumed, however when I look at the [employer], she is not on Percocet. She takes oxycodone immediate release 10 mg, oxycodone 5 mg immediate release for breakthrough pain, she has been on a benzodiazepine in the past. Last filled within the past month and a half. We will be screening broad labs including aspirin and salicylate levels, U tox, serum ethanol, obtaining an EKG. We will reach out to poison control. We are going to have to medicate the patient in order to obtain a CT scan of the brain, given her altered mental status, I am concerned for progression of her tumor burden, I do not have a sense of what her baseline mentation is. We will start with 10 mg of intramuscular Zyprexa. Sounds as if the patient could have also had a breakthrough seizure, we will load her with her Keppra 500 mg IV, we will check a Keppra level. I have independently reviewed the following tests: Labs: Sodium 136, potassium 4.5, chloride 104, bicarb 23, gap 14, creatinine 0.92, glucose 147, LFTs normal, aspirin and Tylenol levels are negative, ethanol negative, U tox positive for marijuana and oxycodone and no abnormalities noted on the CBC EKG: unable to obtain, given there are no electrolyte abnormalities, I do not feel strongly about obtaining this study CT brain:CT HEAD WITHOUT CONTRAST CLINICAL INFORMATION: Altered mental status. Metastatic disease. Toxic ingestion. COMPARISON: Brain MRI from 10/16/2023. TECHNIQUE: Contiguous axial imaging was performed from the skull base to vertex without intravenous administration of contrast. This CT examination was performed using dose optimization techniques as appropriate, variously including the following: *Automated exposure control. *Adjustment of mA and/or kV according to patient size (this includes techniques or standardized protocols for targeted exams where dose is matched to indication/reason for exam; i.e. extremities or head). *Use of iterative reconstruction technique. DLP: 1411 mGy-cm FINDINGS: Significantly motion degraded exam. Compared to exam from 10/16/2023, there appears to be development of extensive multifocal hyperattenuating lesions throughout the bilateral cerebral hemispheres, some of which demonstrate moderate perilesional edema. The poorly defined lesions appear to measure up to 1.5 cm and size. No overt evidence of acute intracranial hemorrhage. No territorial loss of figueroa-white matter differentiation. The ventricles are normal in morphology and size. No evidence for obstructive hydrocephalus. No midline shift. No acute soft tissue or osseous abnormalities. The mastoid air cells and visualized paranasal sinuses are clear. CT/CT head/brain wo IV con IMPRESSION: Significantly motion degraded exam. Compared to exam from 10/16/2023, there appears to be development of extensive multifocal metastatic disease throughout the bilateral cerebral hemispheres. The poorly defined lesions appear to measure up to 1.5 cm and size. No overt evidence of acute intracranial hemorrhage. No demonstrated territorial loss of figueroa-white matter differentiation. Electronically signed by: Abrahan Thomas DO 03/22/2024 12:40 AM EDT Lab Data 03/21/24 19:19 03/21/24 19:19 Labs: Lab Results 03/21/24 03/21/24 03/22/24 Range/Units 19:19 19:27 00:27 WBC 9.2 (4.8-10.8) X10*3/uL RBC 3.86 L (4.20-5.50) X10*6/uL Hgb 13.0 (12.0-16.0) g/dl Hct 37.9 (37.0-47.0) % MCV 98.2 H (80.0-98.0) fL MCH 33.7 H (27.0-33.0) pg MCHC 34.3 (31.0-35.0) g/dl RDW 13.4 (11.0-16.0) % Plt Count 191 (160-400) X10*3/uL MPV 9.1 L (9.4-12.3) fL Immature Gran % (Auto) 0.4 (0.0-0.4) % Neut % (Auto) 82.6 H (45-73) % Lymph % (Auto) 11.2 L (20-40) % [place] % (Auto) 5.7 (2-11) % Eos % (Auto) 0.0 (0-4) % Baso % (Auto) 0.1 (0-2) % Lymph # (Auto) 1.0 L (1.2-4.9) X10*3/uL [place] # (Auto) 0.5 (0.1-1.2) X10*3/uL Eos # (Auto) 0.0 (0.0-0.4) X10*3/uL Baso # (Auto) 0.0 (0.0-0.2) X10*3/uL Abs Immat Gran (auto) 0.04 H (0.00-0.03) X10*3/uL Absolute Neuts (auto) 7.6 (2.0-8.3) x10*3/uL Absolute Nucleated RBC 0.000 (0.0-0.012) X10*3/uL Nucleated RBC % (auto) 0.0 (0.0-0.2) /100WBC Sodium 136 (135-145) mmol/L Potassium 4.5 (3.3-5.1) mmol/L Chloride 104 (96-108) mmol/L Carbon Dioxide 23 (22-29) mmol/L Anion Gap 14 (12-20) BUN 14 (9-16) mg/dL Creatinine 0.92 (0.5-1.4) mg/dL Estim Creat Clear Calc 42.8 Estimated GFR > 60 Random Glucose 147 H (60-115) mg/dL Calcium 9.4 (8.4-10.2) mg/dL Magnesium 1.8 (1.6-2.6) mg/dL Total Bilirubin 0.4 (0.0-1.0) mg/dL AST 20 (5-31) U/L ALT 11 (0-31) U/L Alkaline Phosphatase 37 L (39-117) U/L Total Protein 7.1 (6.5-8.0) g/dL Albumin 4.2 (3.5-5.0) g/dL Lipase 21 (8-78) U/L Urine Color Yellow Urine Appearance Clear Urine pH 6.0 (5.0-9.0) Ur Specific [place] 1.020 (1.005-1.025) Urine Protein 30 (1+) H (Neg-Trace) mg/dL Urine Glucose (UA) Negative (Negative) mg/dL Urine Ketones 15 (Negative) mg/dL Urine Blood Trace H (Negative) Urine Nitrite Negative (Negative) Ur Leukocyte Esterase Negative (Negative) Urine RBC 3-5 H (0-2) /HPF Urine WBC 0-5 (0-5) /HPF Ur Squamous Epith Cells 3-5 (0-2) /HPF Urine Bacteria None Seen (None Seen) Hyaline Casts 6-10 (0-2) /LPF Salicylates < 5.0 L (15-30) mg/dL Urine Opiates Screen Not Detected (Not Detect) Ur Buprenorphine Scrn Not Detected (Not Detect) ng/mL Ur Oxycodone Screen Positive H (Not Detect) ng/mL Urine Methadone Screen Not Detected (Not Detect) ng/mL Urine Fentanyl Screen Not Detected (Not Detect) Acetaminophen < 3 < 3 (<30) mcg/mL Ur Barbiturates Screen Not Detected (Not Detect) Ur Phencyclidine Scrn Not Detected (Not Detect) Ur Amphetamines Screen Not Detected (Not Detect) U Benzodiazepines Scrn Not Detected (Not Detect) Urine Cocaine Screen Not Detected (Not Detect) U Marijuana (THC) Screen POSITIVE H (Not Detect) Ethyl Alcohol < 10 mg/dL Discharge Plan Discharge Clinical Impression: Altered mental status, Breakthrough seizure, Lung cancer metastatic to brain Patient Disposition: Admitted As Inpatient Print Language: Mosotho
[2024-03-21] MEDS: OLANZapine 10 MG VIAL IM (18:48)
[2024-03-21 18:49] VITALS: BMI 18.0
--- NOTE | 2024-03-21 18:54 | PC.NURSE ---
Patient thrasing in bed upon arrival, unable to obtain vss, not reredirectable. Provider at bedside, medicated per
--- NOTE | 2024-03-21 19:00 | MHC.EDTECH ---
Unable to obtain initial set of vital signs. Pt rolling around in bed restless. Pt wont keep on gown or cardiac lead or O2 Sat monitor. BP cycle and unable to catch systolic and diastolic pressures. Not redirectable. Provider made aware.
[2024-03-21 19:24] LABS: MANUAL DIFF FLAG NO
[2024-03-21 19:25] LABS: Basophils Percent Auto 0.1 % (0-2); Hematocrit 37.9 % (37.0-47.0); Imm Gran Abs Auto 0.04 X10*3/uL (0.00-0.03); Imm Gran Pct Auto 0.4 % (0.0-0.4); Lymphocytes Percent Auto 11.2 % (20-40); Mean Corpuscular HGB Conc 34.3 g/dl (31.0-35.0); Mean Corpuscular Hemoglobin 33.7 pg (27.0-33.0); Mean Corpuscular Volume 98.2 fL (80.0-98.0); Mean Platelet Volume 9.1 fL (9.4-12.3); Monocytes Absolute Auto 0.5 X10*3/uL (0.1-1.2); Monocytes Percent Auto 5.7 % (2-11); Neutrophils Absolute Auto 7.6 x10*3/uL (2.0-8.3); Neutrophils Percent Auto 82.6 % (45-73); Platelet Count 191 X10*3/uL (160-400); Red Blood Count 3.86 X10*6/uL (4.20-5.50); Red Cell Distribution Width 13.4 % (11.0-16.0); White Blood Count 9.2 X10*3/uL (4.8-10.8)
[2024-03-21] MEDS: 0.9 % Sodium Chloride 500 ML IV (19:28)
[2024-03-21 19:33] VITALS: BP 135/93; PULSE 86; RESP 20; O2SAT 98
[2024-03-21 19:44] LABS: Appearance Urine Clear; Color Urine Yellow; Glucose Urine UA Negative (Negative); Leukocyte Esterase Urine Negative (Negative); Nitrite Urine Negative (Negative); UMIC TRIGGER UACC YES; Urine Blood Trace (Negative); Urine Ketones 15 mg/dL (Negative); Urine Protein 30 (1+) mg/dL (Neg-Trace)
[2024-03-21 19:45] LABS: Acetaminophen LAB < 3 mcg/mL (<30); Alanine Aminotransferase 11 U/L (0-31); Albumin Level 4.2 g/dL (3.5-5.0); Alkaline Phosphatase 37 U/L (39-117); Anion Gap 14 (12-20); Aspartate Amino Transferase 20 U/L (5-31); Bilirubin Total 0.4 mg/dL (0.0-1.0); Blood Urea Nitrogen 14 mg/dL (9-16); Calcium 9.4 mg/dL (8.4-10.2); Carbon Dioxide 23 mmol/L (22-29); Chloride 104 mmol/L (96-108); Creatinine Clr Calc Pharmacy 42.8; Estimated Glomerular Filt Rate > 60; Ethanol < 10 mg/dL; Glucose Random 147 mg/dL (60-115); Lipase 21 U/L (8-78); Magnesium 1.8 mg/dL (1.6-2.6); Potassium 4.5 mmol/L (3.3-5.1); Salicylate < 5.0 mg/dL (15-30); Sodium 136 mmol/L (135-145); Total Protein 7.1 g/dL (6.5-8.0)
--- NOTE | 2024-03-21 19:45 | PC.NURSE ---
[employer]asure camera initiated.
[2024-03-21 19:56] LABS: Amphetamine Screen Urine Not Detected (Not Detect); Barbiturates, Urine Not Detected (Not Detect); Benzodiazepines Screen Urine Not Detected (Not Detect); Buprenorphine Scr Not Detected (Not Detect); Cannabinoid Screen Urine POSITIVE (Not Detect); Cocaine Screen Urine Not Detected (Not Detect); Fentanyl, urine Not Detected (Not Detect); Methadone Screen, Urine Not Detected (Not Detect); Opiate Screen Urine Not Detected (Not Detect); Oxycodone Screen Urine Positive (Not Detect); Phencyclidine Screen Urine Not Detected (Not Detect)
[2024-03-21 19:57] LABS: Bacteria Urine None Seen (None Seen); WBC Urine 0-5 /HPF (0-5)
[2024-03-21] MEDS: LORazepam 2 MG/ML VIAL 1 MG IVPUSH (19:59)
--- NOTE | 2024-03-21 19:59 | PC.NURSE ---
Pt with continued agitaton despite zyprexa injection. Medicated per MAR with 1mg Ativan IVP.
--- NOTE | 2024-03-21 20:15 | PC.NURSE ---
Pt remains restless and not tolerating CT.
--- NOTE | 2024-03-21 20:18 | PC.NURSE ---
Update given to pts daughter Shea.
[2024-03-21] MEDS: LORazepam 2 MG/ML VIAL IVPUSH (20:39)
--- NOTE | 2024-03-21 20:39 | PC.NURSE ---
Pt medicated per MAR with 2mg Ativan IVP for continued restlessness.
[2024-03-21] MEDS: levETIRAcetam in NaCl (iso-os) 500 MG/100 ML PIGGYBACK 400 MG IV (20:41)
--- NOTE | 2024-03-21 21:12 | MHC.EDTECH ---
UTO EKG due to pt moving and ripping leads off her chest
[2024-03-21] MEDS: droPERidol 5 MG/2 ML VIAL 1.25 MG IVPUSH (22:01)
--- NOTE | 2024-03-21 22:01 | PC.NURSE ---
Pt with continued restlessness. Pt medicated per MAR with 1.25mg Droperidol IVP in attempt to get CT scan done.
[2024-03-21 23:09] VITALS: PULSE 82; RESP 19; O2SAT 97
[2024-03-21] MEDS: Midazolam HCl/PF 2 MG/2 ML VIAL IVPUSH (23:10)
--- NOTE | 2024-03-21 23:10 | PC.NURSE ---
Pt medicated per MAR with 2mg Versed.
--- NOTE | 2024-03-21 23:15 | PC.NURSE ---
Pt taken to CT with this RN. Pt restless throughout scan but some pictures obtained. Provider aware.
[2024-03-22 01:06] LABS: Acetaminophen LAB < 3 mcg/mL (<30)
[2024-03-22 02:36] VITALS: BP 117/65; PULSE 78; RESP 13
--- NOTE | 2024-03-22 05:26 | PM.IMHP ---
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 HPI was obtained from ED provider and chart review as the patient asked me to leave because she wanted to sleep. According to ED provider the patient presented to the emergency department unresponsive suspecting overdose with Percocet//oxycodone. Her pupils was pinpoint and she received treatment with intranasal cannula by EMS with good response. It was commented that the patient was incontinent of urine, suspecting seizures. Poison control was contacted. It seems like later on the patient became combative and received multiple medications to calm her down in order to perform a head CT scan. These medications are: Zyprexa 10 mg IM, Ativan 2 mg IV (total), droperidol 1.25 mg IV and Versed 2 mg IV. The patient also was loaded with Keppra 500 mg IV. In the ED she was found to have stable vital signs. Blood workup showed no leukocytosis. Hemoglobin and platelets are normal. There are no electrolyte imbalances. Renal and LFTs are normal. UA showed no evidence of UTI. Urine drug screen is positive for oxycodone. Salicylates level < 5.0. ETOH level is undetectable. Head CT scan showed no overt evidence of acute intracranial hemorrhage. Review of Systems Review of Systems: Yes Other (pt asked me to leave her caity) [facility] Medical History (Updated 03/22/24 @ 06:01 by Marla Smith MD) Hx of seizure disorder Lipid disorder Asthma, moderate persistent Depression, major, recurrent Osteoporosis Dyspepsia Breast cancer Chronic low back pain Family History Father CVD (cardiovascular disease) Heart problem COPD (chronic obstructive pulmonary disease) Mother Myocardial infarct COPD (chronic obstructive pulmonary disease) Brother Mental health disorder Substance use disorder COPD (chronic obstructive pulmonary disease) Surgical History (Updated 12/08/23 @ 10:51 by Uma Haywood MD) History of lung biopsy Hx of hand surgery History of D&C History of repair of rotator cuff History of tubal ligation History of tonsillectomy History of lumpectomy of left breast (~2006) H/O colectomy H/O colonoscopy Social History Household Members: None Housing: Apartment Alcohol intake: former Patient Tobacco Use Status: Former Tobacco user Years Smoked: 25 + e-Cigarette/Vaping Use: Never Used Substance Use Type: Marijuana Advance Directives: No Advance Directives Information Provided: No service: No Current occupational status: disabled Current occupation: Right handed Cognitive needs: No Hearing needs: No Vision needs: Yes Meds Allergies Allergy/AdvReac Type Severity Reaction Status Date / Time oseltamivir [From TAMIFLU] Allergy Unknown SEVERE Verified 03/21/24 18:49 VOMITING,SHAKING, severe vomiting, vomiting Penicillins [PENICILLINS] Allergy Unknown RASH- A Verified 03/21/24 18:49 CHILD Active Medications: Current Medications Acetaminophen (Acetaminophen 325 Mg Tablet) 975 mg PO Q6H PRN PRN Reason: Pain, Mild (Pain Scale 1-3), fever or headache Enoxaparin Sodium (Enoxaparin Sodium 30 Mg/0.3 Ml Syringe) 30 mg SUBCUT Q24H [facility] Melatonin (Melatonin 3 Mg Tablet) 6 mg PO BEDTIME PRN PRN Reason: Insomnia Sodium Chloride (0.9 % Sodium Chloride Flush 3 Ml Syringe) 3 ml IVFLUSH QSHIFT [facility] Home Medications ?Medication ?Instructions ?Recorded ?Confirmed ?Last Taken ?Type mirtazapine 15 mg tablet 15 mg PO DAILY 03/17/20 10/27/23 Unknown History folic acid 1 mg tablet 1 mg PO DAILY 11/14/20 10/27/23 Unknown History levetiracetam 500 mg tablet 500 mg PO BID 04/30/23 10/27/23 Unknown History escitalopram oxalate 20 mg tablet 20 mg PO DAILY 09/30/23 10/27/23 Unknown History sennosides 8.6 mg tablet (senna) 8.6 mg PO BID 11/17/23 11/17/23 Unknown History levetiracetam 500 mg tablet 500 mg PO BID 03/22/24 03/22/24 Unknown History Physical Exam Vital Signs and Narrative: Vital Signs: Last Vital Signs Pulse 78 03/22/24 02:36 Resp 13 03/22/24 02:36 BP 117/65 03/22/24 02:36 Pulse Ox 97 03/21/24 23:09 O2 Del Method Room Air 03/21/24 23:09 BMI result Body Mass Index 18.0 General: No distress. Patient asked me to leave and did not allow me to examine her. Results Labs 03/21/24 19:19 03/21/24 19:19 Labs: Laboratory Results - last 24 hr 03/21/24 03/21/24 03/22/24 19:19 19:27 00:27 MCV 98.2 H MCH 33.7 H MCHC 34.3 RDW 13.4 Plt Count 191 MPV 9.1 L Immature Gran % (Auto) 0.4 Neut % (Auto) 82.6 H Lymph % (Auto) 11.2 L Harvey % (Auto) 5.7 Eos % (Auto) 0.0 Baso % (Auto) 0.1 Lymph # (Auto) 1.0 L Harvey # (Auto) 0.5 Eos # (Auto) 0.0 Baso # (Auto) 0.0 Abs Immat Gran (auto) 0.04 H Absolute Neuts (auto) 7.6 Absolute Nucleated RBC 0.000 Nucleated RBC % (auto) 0.0 Anion Gap 14 Estim Creat Clear Calc 42.8 Estimated GFR > 60 Random Glucose 147 H Calcium 9.4 Magnesium 1.8 Total Bilirubin 0.4 AST 20 ALT 11 Alkaline Phosphatase 37 L Total Protein 7.1 Albumin 4.2 Lipase 21 Urine Color Yellow Urine Appearance Clear Urine pH 6.0 Ur Specific Fromberg 1.020 Urine Protein 30 (1+) H Urine Glucose (UA) Negative Urine Ketones 15 Urine Blood Trace H Urine Nitrite Negative Ur Leukocyte Esterase Negative Urine RBC 3-5 H Urine WBC 0-5 Ur Squamous Epith Cells 3-5 Urine Bacteria None Seen Hyaline Casts 6-10 Salicylates < 5.0 L Urine Opiates Screen Not Detected Ur Buprenorphine Scrn Not Detected Ur Oxycodone Screen Positive H Urine Methadone Screen Not Detected Urine Fentanyl Screen Not Detected Acetaminophen < 3 < 3 Ur Barbiturates Screen Not Detected Ur Phencyclidine Scrn Not Detected Ur Amphetamines Screen Not Detected U Benzodiazepines Scrn Not Detected Urine Cocaine Screen Not Detected U Marijuana (THC) Screen POSITIVE H Ethyl Alcohol < 10 Imaging Radiologist's Impressions: Impressions Head CT 03/21/24 23:10 IMPRESSION: Significantly motion degraded exam. Compared to exam from 10/16/2023, there appears to be development of extensive multifocal metastatic disease throughout the bilateral cerebral hemispheres. The poorly defined lesions appear to measure up to 1.5 cm and size. No overt evidence of acute intracranial hemorrhage. No demonstrated territorial loss of figueroa-white matter differentiation. Electronically signed by: Abrahan Thomas DO 03/22/2024 12:40 AM EDT RP Assessment and Plan (1) Altered mental status: Qualifiers: Altered mental status type: unspecified Qualified Code(s): R41.82 - Altered mental status, unspecified Status: Acute (2) Lung cancer: Qualifiers: Laterality: unspecified laterality Lung location: unspecified part of lung Qualified Code(s): C34.90 - Malignant neoplasm of unspecified part of unspecified bronchus or lung Status: Acute Plan Tanja Zaman is a 63 y/o woman admitted with: Decreased level of consciousness, now alert. Oxycodone overdose was suspected; pt became alert after receiving Narcan. Admit to hospitalist service. Hold oxycodone and other sedatives for now. Neuro checks every 4 hours. Seizure disorder. Continue Keppra 500 mg p.o. b.i.d.. Depression. Continue escitalopram. COPD. Continue home inhalers/Anoro. Hyperlipidemia. Continue statin. 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 Protein calorie malnutrition. BMI 18.0 kg/m2. Code status: Full DVT prophylaxis: Lovenox Patient will need hospitalization for at least 2 midnights for acute encephalopathy/decreased level of consciousness evaluation and treatment with continuous monitoring of neurological status. Quality Stroke Does the patient have a stroke diagnosis?: No VTE Prior VTE?: No VTE Risk Level:: Medical - moderate - high VTE Device Contraindication: Treatment Not Indicated VTE Drug Contraindication: N/A - Med Ordered
[2024-03-22 05:32] VITALS: BP 118/75; PULSE 81; RESP 13; TEMP 36.3
[2024-03-22 05:59] LABS: MANUAL DIFF FLAG NO
[2024-03-22 06:00] LABS: Basophils Percent Auto 0.2 % (0-2); Eosinophils Percent Auto 0.2 % (0-4); Hematocrit 37.5 % (37.0-47.0); Hemoglobin 12.8 g/dl (12.0-16.0); Imm Gran Abs Auto 0.02 X10*3/uL (0.00-0.03); Imm Gran Pct Auto 0.2 % (0.0-0.4); Lymphocytes Absolute Auto 2.1 X10*3/uL (1.2-4.9); Lymphocytes Percent Auto 23.5 % (20-40); Mean Corpuscular HGB Conc 34.1 g/dl (31.0-35.0); Mean Corpuscular Hemoglobin 33.8 pg (27.0-33.0); Mean Corpuscular Volume 98.9 fL (80.0-98.0); Mean Platelet Volume 9.4 fL (9.4-12.3); Monocytes Absolute Auto 0.9 X10*3/uL (0.1-1.2); Monocytes Percent Auto 9.6 % (2-11); Neutrophils Percent Auto 66.3 % (45-73); Platelet Count 181 X10*3/uL (160-400); Red Blood Count 3.79 X10*6/uL (4.20-5.50); Red Cell Distribution Width 13.3 % (11.0-16.0); White Blood Count 9.1 X10*3/uL (4.8-10.8)
[2024-03-22 06:13] LABS: Anion Gap 12 (12-20); Blood Urea Nitrogen 12 mg/dL (9-16); Calcium 9.4 mg/dL (8.4-10.2); Carbon Dioxide 23 mmol/L (22-29); Chloride 107 mmol/L (96-108); Creatinine Clr Calc Pharmacy 48.1; Estimated Glomerular Filt Rate > 60; Glucose Random 95 mg/dL (60-115); Potassium 3.9 mmol/L (3.3-5.1); Sodium 138 mmol/L (135-145)
[2024-03-22] MEDS: Enoxaparin Sodium 30 MG/0.3 ML SYRINGE SUBCUT (08:53)
[2024-03-22] MEDS: 0.9 % Sodium Chloride Flush 3 ML SYRINGE IVFLUSH ×2 (08:54→18:35)
--- NOTE | 2024-03-22 10:00 | MHC.CM.PN ---
Attempted to meet with patient in regards to discharge planning. Patient currently sleeping. No family present. Will attempt to meet again. Continue to monitor for d/c needs.
--- NOTE | 2024-03-22 10:46 | PM.EVENT ---
Event Note Date of Service: 03/22/24 Event Note: Tanja Zaman is a 63 y/o woman admitted with: Encephalopathy with decreased level of consciousness More alert but confused Oxycodone overdose was suspected vs brain mets pt became alert after receiving Narcan. Hold oxycodone and other sedatives for now. Neuro checks every 4 hours. psych consult pending Seizure disorder. seizure precautions Continue Keppra 500 mg p.o. b.i.d.. Depression. Continue escitalopram. COPD. Continue home inhalers/Anoro. Hyperlipidemia. Continue statin. 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 hematology consultation Head CT showing mets Protein calorie malnutrition. BMI 18.0 kg/m2. add protein to diet Code status: Full DVT prophylaxis: Lovenox DISPO PT consult Patient will need hospitalization for at least 2 midnights for acute encephalopathy/decreased level of consciousness evaluation and treatment with continuous monitoring of neurological status. Time Spent With Patient Time: Total time managing care of this patient today ____ minutes.
[2024-03-22 10:59] VITALS: BP 119/57; PULSE 84; RESP 16; TEMP 36.6; O2SAT 99
--- NOTE | 2024-03-22 11:49 | PHA.MEDREC ---
Addendum entered by Joelle Collins RPh 03/22/24 12:51: med rec reviewed by lisset Original Note: Pharmacy Consult ? Medication Reconciliation Pharmacy has completed the medication reconciliation. Confirmed medications with patient daughter over the phone. Patient daughter confirmed her Prolia injection every 6 months and her daughter confirmed she got it mid December and isnt due until 2024. I also asked her about any pain medication and the daughter confirmed her mom never took the Methadone because it was too much for her. She did confirm her mom is still taking Oxycodone and states that is the reason why she is here today, I asked about dosing and she thinks her mom was on the 10mg tab but looking in previous claims patient only got Oxycodone 10mg on Feb 16 for 7 days and looking in claims before and after that fills the patient have been getting are Oxycodone 5mg tablets. Patient daughter states her mom has not eaten anything since Friday according to the patients sister and daughter is not sure the last time she has taken her medication due to her mom being off for a few weeks now, stating she doesn't remember taking them .
[2024-03-22 12:24] VITALS: BP 119/57; PULSE 84; O2SAT 99
--- NOTE | 2024-03-22 12:59 | P.CDIM_ITS ---
PROVIDER RESPONSE TEXT: To clarify, the appropriate diagnosis supported by the clinical indicators: Moderate QUERY TEXT: PHYSICIAN'S DOCUMENTATION REQUEST Date of Query: 03/22/2024 11:13 AM EDT Patient Name: Tanja Zaman Admit Date: 03/22/2024 Dear Darlene Carter GLASS BEVELLER, A review of the medical record indicates additional documentation may be needed. Please review below and update the documentation accordingly. Clinical indicators: Progress notes within the Plan - Protein calorie malnutrition BMI 18.0 kg/m2 Add protein to diet If possible, please provide additional specificity regarding the severity of the malnutrition using t he above information: Mild Moderate Severe Other (explain) Clinically unable to determine (explain) Thank you, Helen Javed, CCS, CDIS Use of terms such as suspected, likely, concern for, or probable (associated with a specific diagnosi s that is being evaluated, monitored, or treated as if it exists) are acceptable and can be coded in the inpatient se tting, when documented at the time of discharge. Please use your independent medical judgment in providing your response. THIS QUERY IS PART OF THE PERMANENT MEDICAL RECORD
--- NOTE | 2024-03-22 13:01 | P.CDIM_ITS ---
PROVIDER RESPONSE TEXT: To clarify, the appropriate diagnosis supported by the clinical indicators: Metabolic QUERY TEXT: PHYSICIAN'S DOCUMENTATION REQUEST Date of Query: 03/22/2024 11:14 AM EDT Patient Name: Tanja Zaman Admit Date: 03/22/2024 Dear Darlene Carter EDGE GRINDER, A review of the medical record indicates additional documentation may be needed. Please review below and update the documentation accordingly. Clinical Indicators: Progress notes & Event note: Encephalopathy with decreased level of consciousness. More alert but confused. Oxycodone overdose was suspected vs brain mets. Hold oxycodone and other sedatives for now. Altered mental status, decreased level of consciousness. Patient became alert after receiving Narcan. Based on the above, please further specify, in the Progress Notes, the known or suspected type of the documented encephalopathy: Metabolic Toxic Toxic metabolic Other (explain) Clinically unable to determine (explain) Thank you, Helen Javed, CCS, CDIS Use of terms such as suspected, likely, concern for, or probable (associated with a specific diagnosi s that is being evaluated, monitored, or treated as if it exists) are acceptable and can be coded in the inpatient se tting, when documented at the time of discharge. Please use your independent medical judgment in providing your response. THIS QUERY IS PART OF THE PERMANENT MEDICAL RECORD
--- NOTE | 2024-03-22 13:40 | PC.NURSE ---
physical therapy at bedside to assess patient. Patient alert and oriented x 2 speaking clear sentences and remains calm and cooperative this morning.
[2024-03-22 16:04] VITALS: BMI 17.3
[2024-03-22 16:08] VITALS: BP 114/86; PULSE 86; RESP 19; TEMP 36.6; O2SAT 98
[2024-03-22 19:27] VITALS: BP 125/83; PULSE 88; RESP 20; TEMP 36.6; O2SAT 98
[2024-03-22] MEDS: levETIRAcetam in NaCl (iso-os) 500 MG/100 ML PIGGYBACK 400 MG IV (22:31)
[2024-03-23] VITALS (7 sets, daily range): BP systolic 117–168; BP diastolic 55–95; PULSE 73–107; RESP 16–20; TEMP 36.3–36.8; O2SAT 96–98; BMI 17.3
[2024-03-23] MEDS: 0.9 % Sodium Chloride Flush 3 ML SYRINGE IVFLUSH ×4 (01:00→22:38)
[2024-03-23 06:45] LABS: Hematocrit 37.8 % (37.0-47.0); Mean Corpuscular HGB Conc 34.4 g/dl (31.0-35.0); Mean Corpuscular Hemoglobin 33.6 pg (27.0-33.0); Mean Corpuscular Volume 97.7 fL (80.0-98.0); Mean Platelet Volume 9.5 fL (9.4-12.3); Platelet Count 173 X10*3/uL (160-400); Red Blood Count 3.87 X10*6/uL (4.20-5.50); Red Cell Distribution Width 13.4 % (11.0-16.0); White Blood Count 8.3 X10*3/uL (4.8-10.8)
[2024-03-23 06:58] LABS: Anion Gap 12 (12-20); Blood Urea Nitrogen 23 mg/dL (9-16); Carbon Dioxide 25 mmol/L (22-29); Chloride 105 mmol/L (96-108); Creatinine Clr Calc Pharmacy 46.8; Estimated Glomerular Filt Rate > 60; Glucose Random 88 mg/dL (60-115); Potassium 3.9 mmol/L (3.3-5.1); Sodium 138 mmol/L (135-145)
[2024-03-23] MEDS: Enoxaparin Sodium 30 MG/0.3 ML SYRINGE SUBCUT (09:33)
[2024-03-23] MEDS: Folic Acid 1 MG TABLET PO (09:34)
[2024-03-23] MEDS: Mirtazapine 15 MG TABLET PO (09:34)
[2024-03-23] MEDS: Cholecalciferol (Vitamin D3) 25 MCG TABLET 50 MCG PO (09:34)
[2024-03-23] MEDS: Calcium Oyster Shell Elemental 500 MG TABLET PO ×2 (09:34→22:38)
[2024-03-23] MEDS: Atorvastatin Calcium 40 MG TABLET PO (09:34)
[2024-03-23] MEDS: Escitalopram Oxalate 20 MG TABLET PO (09:34)
[2024-03-23] MEDS: levETIRAcetam in NaCl (iso-os) 500 MG/100 ML PIGGYBACK 100 MG IV ×2 (09:35→22:33)
--- NOTE | 2024-03-23 11:04 | MHC.SL.SWA ---
Speech Pathologist Impression: Mild dysphagia d/t missing dentition and high level of distractibility Risk of Aspiration Due to: Medically Fragile Neurological Condition Reduced Cognition Dysphasia Diet Status: Liquid Consistency and Strategies for Safe Swallow: Liquid Intake Recommendation: Thin Liquid Intake Strategies: Small Sips Solid Food Consistency: Dietary Recommendations: Grnd/Mech Altered (NDD2) Additional Modifications to Solid Foods: Oral Medication Intake: Crushed with Puree Please contact the pharmacy regarding appropriate crushable or liquid drug formulations that are available whenever modified delivery is recommended. Compensatory Strategies and Precautions to be Taken for Safe Swallow: Sitting Upright (90 deg) Liquids from Cup Liquids from Straw Small Bites and Sips Alternate Liquids/Solids Rate of Ingestion Change Supervision While Eating and Drinking for Safe Swallow: Total Assistance (1:1) Foods to Avoid: Swallowing Recommended Treatments: Compens. Strategy Educat. Recommendation for Speech: Inpatient Speech Therapy Comment: [facility] National Dysphagia Diet Level 2 with thin liquids, 1:1 assistance d/t poor attention to task, ST to follow Frequency/Duration: Date Range for Service Req: Timeline to reassess: [employer] Clinican/Clinical Fellow: No Supervisory Statement: I have reviewed and agree with the student/clinical fellow's documentation: N/A Speech Language Pathologist: Joselin Capone M.S. CCC-EQUIPMENT DRIVER
--- NOTE | 2024-03-23 11:34 | MHC.CLN ---
RE: CONSULT PT IS MODERATELY MALNOURISHED PT WITH MILDLY DEPLETED SUBCUTANEOUS FAT AND MUSCLE MASS WITH BMI 17.3 AND 14% NONSIGNIFICANT WT LOSS X1 YEAR PT IS CURRENTLY NPO WHEN DIET ADVANCES, RECOMMEND ADDING SUPPLEMENT TO INCREASE KCALS FOLLOWING FOR DIET ADVANCEMENT SEE ALSO FULL CLINICAL NUTRITION ASSESSMENT
--- NOTE | 2024-03-23 12:03 | HO.PM.IMPN ---
Subjective Subjective Date of Service: 03/23/24 Review of Systems Follow up Lung cancer, encephalopathy, brain mets More awake today but still with some confusion Physical Exam Vital Signs: Vital Signs: Last Vital Signs Temp 98.2 F 03/23/24 11:42 Pulse 85 03/23/24 11:42 Resp 20 03/23/24 11:42 BP 168/80 H 03/23/24 11:42 Pulse Ox 97 03/23/24 11:42 O2 Del Method Room Air 03/23/24 11:42 BMI result Body Mass Index 17.3 Appearing in no acute distress lung sounds are clear to auscultation heart regular rate rhythm, clear S1, S2 positive bowel sounds, abdomen is soft, nontender neuro patient is alert x3, no focal deficits Objective Data Active Medications Acetaminophen (Acetaminophen 325 Mg Tablet) 975 mg PO Q6H PRN PRN Reason: Pain, Mild (Pain Scale 1-3), fever or headache Albuterol Sulfate (Albuterol Sulfate (0.083%) 2.5 Mg/3 Ml Vial.Neb) 2.5 mg INHALE Q4H PRN PRN Reason: bronchospasm Albuterol Sulfate (Albuterol Sulfate 90 Mcg 8 Gm Inhaler) 1 puff INHALE QID PRN PRN Reason: for wheezing Atorvastatin Calcium (Atorvastatin Calcium 40 Mg Tablet) 40 mg PO DAILY [facility] Last Admin: 03/23/24 09:34 Dose: 40 mg Documented By: KAILEY Calcium Carbonate (Calcium Oyster Shell Elemental 500 Mg Tablet) 500 mg PO BID [facility] Last Admin: 03/23/24 09:34 Dose: 500 mg Documented By: KAILEY Enoxaparin Sodium (Enoxaparin Sodium 30 Mg/0.3 Ml Syringe) 30 mg SUBCUT Q24H [facility] Last Admin: 03/23/24 09:33 Dose: 30 mg Documented By: KAILEY Escitalopram Oxalate (Escitalopram Oxalate 20 Mg Tablet) 20 mg PO DAILY [facility] Last Admin: 03/23/24 09:34 Dose: 20 mg Documented By: KAILEY Folic Acid (Folic Acid 1 Mg Tablet) 1 mg PO DAILY [facility] Last Admin: 03/23/24 09:34 Dose: 1 mg Documented By: KAILEY Levetiracetam (Keppra) 500 mg in 100 mls @ 400 mls/hr IV Q12H [facility] Last Infusion: 03/23/24 09:55 Dose: Infused Documented By: KAILEY Melatonin (Melatonin 3 Mg Tablet) 6 mg PO BEDTIME PRN PRN Reason: Insomnia Mirtazapine (Mirtazapine 15 Mg Tablet) 15 mg PO DAILY [facility] Last Admin: 03/23/24 09:34 Dose: 15 mg Documented By: KAILEY Non-Formulary Medication (Umeclidinium-Vilanterol [Anoro Ellipta]) 1 inhalation INHALE DAILY [facility] Sodium Chloride (0.9 % Sodium Chloride Flush 3 Ml Syringe) 3 ml IVFLUSH QSHIFT [facility] Last Admin: 03/23/24 09:34 Dose: 3 ml Documented By: KAILEY Vitamin D (Cholecalciferol (Vitamin D3) 25 Mcg Tablet) 50 mcg PO DAILY [facility] Last Admin: 03/23/24 09:34 Dose: 50 mcg Documented By: KAILEY Labs 03/23/24 06:35 03/23/24 06:35 Labs: Laboratory Results - last 24 hr 03/23/24 06:35 MCV 97.7 MCH 33.6 H MCHC 34.4 RDW 13.4 Plt Count 173 MPV 9.5 Absolute Nucleated RBC 0.000 Nucleated RBC % (auto) 0.0 Anion Gap 12 Estim Creat Clear Calc 46.8 Estimated GFR > 60 Random Glucose 88 Calcium 10.0 D Assessment and Plan (1) Lung cancer metastatic to brain: Status: Acute Plan Tanja Zaman is a 63 y/o woman admitted with: Encephalopathy with decreased level of consciousness More alert but confused Oxycodone overdose was suspected vs brain mets pt became alert after receiving Narcan. Hold oxycodone and other sedatives for now. Neuro checks every 4 hours. Seizure disorder. seizure precautions Continue Keppra 500 mg p.o. b.i.d.. Depression. Continue escitalopram. COPD. Continue home inhalers/Anoro. Hyperlipidemia. Continue statin. 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 Head CT showing mets hematology consultation Hospice consultation Protein calorie malnutrition. BMI 17.3 kg/m2. add protein to diet Code status: Full Attending Dr. Stahl DVT prophylaxis: Lovenox DISPO PT rec STR Hospice consult Patient will need hospitalization for at least 2 midnights for acute encephalopathy/decreased level of consciousness evaluation and treatment with continuous monitoring of neurological status. Quality Stroke Does the patient have a stroke diagnosis?: No VTE Prior VTE?: No VTE Risk Level:: Medical - moderate - high VTE Device Contraindication: Treatment Not Indicated VTE Drug Contraindication: N/A - Med Ordered
[2024-03-23] MEDS: LORazepam 0.5 MG TABLET 0.25 MG PO (12:33)
--- NOTE | 2024-03-23 12:59 | PM.HEMONCCN ---
Subjective - Subjective Chief complaint: Altered mental status Patient: known to practice within the last 3 years Consult date: 03/23/24 Requesting Physician: Hospitalist team Primary Care Provider: Adam Gil MD Medical Summary: DIAGNOSIS: LEFT HILAR MASS WITH SATELLITE NODULES. Pathology from 10/09, via EBUS/bronchoscopy revealed: Station 4 L: Small-cell carcinoma. TTF 1 positive, synaptophysin and chromogranin positive. CURRENT THERAPY: Carboplatin, etoposide and atezolizumab,. Started 10/26. HPI - Consult Narrative Reason for consult: Extensive stage small-cell lung cancer Narrative: Tanja Zaman is a 63 year old female with history of metastatic lung cancer currently receiving chemotherapy was found unresponsive at home. Her past medical history is significant for COPD, asthma and chronic pain. She was found unresponsive at home and suspected to have overdosed on narcotics. She responded to Narcan. Head CT showed extensive multifocal metastatic disease throughout bilateral cerebral hemispheres. Patient is currently comfortable and talking to her family members were at the bedside. She does not complain of pain. The family has met with her primary oncologist, Dr. Haywood and have decided on hospice care. Review of Systems - Constitutional Reports as per [facility] Medical History: Medical History (Last Reviewed 10/17/23 @ 11:01 by David Zepeda) Asthma, moderate persistent Breast cancer Chronic low back pain Depression, major, recurrent Dyspepsia Hx of seizure disorder Lipid disorder Osteoporosis Family History: Family History (Last Reviewed 11/04/23 @ 10:53 by KLEBER Colin) Father CVD (cardiovascular disease) Heart problem COPD (chronic obstructive pulmonary disease) Mother Myocardial infarct COPD (chronic obstructive pulmonary disease) Brother Mental health disorder Substance use disorder COPD (chronic obstructive pulmonary disease) Surgical History: Surgical History (Last Updated 11/04/23 @ 10:53 by KLEBER Colin) H/O colectomy H/O colonoscopy History of D&C History of lumpectomy of left breast Onset Date: ~2006 History of lung biopsy History of repair of rotator cuff History of tonsillectomy History of tubal ligation Hx of hand surgery Social History: Social History (Last Reviewed 02/13/24 @ 10:46 by KLEBER Whitfield) Living Situation History: Household Members: Other Household Members Other:: daughter and her boyfriend live with him Housing: Apartment Do you presently have visiting nurse or other home services: No Tobacco History: Patient Tobacco Use Status: Former Tobacco user Years Smoked: 25 + e-Cigarette/Vaping Use: Never Used Substance Use History: Substance Use Type: Marijuana Occupation Assessmet: service: No Current occupational status: disabled Current occupation: Right handed Home Medications and Allergies Current Medications: Current Medications Acetaminophen (Acetaminophen 325 Mg Tablet) 975 mg PO Q6H PRN PRN Reason: Pain, Mild (Pain Scale 1-3), fever or headache Albuterol Sulfate (Albuterol Sulfate (0.083%) 2.5 Mg/3 Ml Vial.Neb) 2.5 mg INHALE Q4H PRN PRN Reason: bronchospasm Albuterol Sulfate (Albuterol Sulfate 90 Mcg 8 Gm Inhaler) 1 puff INHALE QID PRN PRN Reason: for wheezing Atorvastatin Calcium (Atorvastatin Calcium 40 Mg Tablet) 40 mg PO DAILY [facility] Last Admin: 03/23/24 09:34 Dose: 40 mg Calcium Carbonate (Calcium Oyster Shell Elemental 500 Mg Tablet) 500 mg PO BID [facility] Last Admin: 03/23/24 09:34 Dose: 500 mg Enoxaparin Sodium (Enoxaparin Sodium 30 Mg/0.3 Ml Syringe) 30 mg SUBCUT Q24H [facility] Last Admin: 03/23/24 09:33 Dose: 30 mg Escitalopram Oxalate (Escitalopram Oxalate 20 Mg Tablet) 20 mg PO DAILY [facility] Last Admin: 03/23/24 09:34 Dose: 20 mg Folic Acid (Folic Acid 1 Mg Tablet) 1 mg PO DAILY [facility] Last Admin: 03/23/24 09:34 Dose: 1 mg Levetiracetam (Keppra) 500 mg in 100 mls @ 400 mls/hr IV Q12H [facility] Last Infusion: 03/23/24 09:55 Dose: Infused Melatonin (Melatonin 3 Mg Tablet) 6 mg PO BEDTIME PRN PRN Reason: Insomnia Mirtazapine (Mirtazapine 15 Mg Tablet) 15 mg PO DAILY [facility] Last Admin: 03/23/24 09:34 Dose: 15 mg Non-Formulary Medication (Umeclidinium-Vilanterol [Anoro Ellipta]) 1 inhalation INHALE DAILY [facility] Oxycodone HCl (Oxycodone Hcl Immed Release 5 Mg Tablet) 5 mg PO Q6H PRN PRN Reason: Breakthrough Pain, Moderate Sodium Chloride (0.9 % Sodium Chloride Flush 3 Ml Syringe) 3 ml IVFLUSH QSHIFT [facility] Last Admin: 03/23/24 09:34 Dose: 3 ml Vitamin D (Cholecalciferol (Vitamin D3) 25 Mcg Tablet) 50 mcg PO DAILY [facility] Last Admin: 03/23/24 09:34 Dose: 50 mcg Home Medications ?Medication ?Instructions ?Recorded ?Confirmed ?Type mirtazapine 15 mg tablet 15 mg PO DAILY 03/17/20 03/22/24 History folic acid 1 mg tablet 1 mg PO DAILY 11/14/20 03/22/24 History levetiracetam 500 mg tablet 500 mg PO BID 04/30/23 03/22/24 History escitalopram oxalate 20 mg tablet 20 mg PO DAILY 09/30/23 03/22/24 History Allergies Allergy/AdvReac Type Severity Reaction Status Date / Time oseltamivir [From TAMIFLU] Allergy Unknown SEVERE Verified 03/21/24 18:49 VOMITING,SHAKING, severe vomiting, vomiting Penicillins [PENICILLINS] Allergy Unknown RASH- A Verified 03/21/24 18:49 CHILD Physical Exam Vital signs: Vital Signs Temp 98.2 F 03/23/24 11:42 Pulse 85 03/23/24 11:42 Resp 20 03/23/24 11:42 BP 168/80 H 03/23/24 11:42 Pulse Ox 97 03/23/24 11:42 O2 Del Method Room Air 03/23/24 11:42 Intake & Output 03/22/24 03/23/24 03/23/24 18:59 06:59 18:59 Intake Total 100 / 100 100 / 100 Output Total 100 / 100 Balance 0 / 0 100 / 100 Urine Output (Average ml/kg/hr) 0.19 0.19 Intake: Intake, Oral Amount 0 / 0 Intake, IV Amount 100 / 100 100 / 100 levETIRAcetam in NaCl (iso-os) 100 / 100 100 / 100 500 mg In 100 ml @ 400 mls/hr IV Q12H [facility] Rx#:[id number] Output: Output, Urine Amount 100 / 100 Other: Meal Refused No NPO No Yes Number of Unmeasured Voids 1 Urine Bedside Commode Bedside Commode Stool Bedside Commode Weight 42.8 kg 42.8 kg [place] Weight in Grams 09931 Weight 42.8 kg - Constitutional Present: no acute distress, thin, chronically ill appearing - Routine HEENT Exam Eye: Present: EOMI - Routine Neck Exam Absent: swelling - Routine Respiratory Exam Present: CTAB. Absent: accessory muscle use - Routine Cardiovascular Exam Cardiovascular: Present: S1, S2 - Routine Extremities Exam Present: pulses intact Hem/Onc Consult Result - Labs CBC & Chem 7: 03/23/24 06:35 03/23/24 06:35 Labs: Short CBC 03/23/24 Range/Units 06:35 WBC 8.3 (4.8-10.8) X10*3/uL Hgb 13.0 (12.0-16.0) g/dl Hct 37.8 (37.0-47.0) % Plt Count 173 (160-400) X10*3/uL BMP 03/23/24 06:35 Sodium 138 Potassium 3.9 Chloride 105 Carbon Dioxide 25 BUN 23 H Creatinine 0.81 Calcium 10.0 D Assessment and Plan Patient Active problem list reviewed?: Yes (1) Lung cancer metastatic to brain Status: Acute Assessment and plan: This is a 63-year-old woman with extensive stage small-cell lung cancer. Bronchoscopy and biopsy of station 4 lymph node in September 2023 revealed small-cell carcinoma. PET scan revealed multiple confluent lymphadenopathy, dominant spiculated mass measuring 3.9 cm in the left thorax. She received palliative chemotherapy with carboplatin, etoposide and atezolizumab. She has been on maintenance atezolizumab. She is currently admitted for encephalopathy secondary to combination of brain metastasis as well as narcotic use. Based on extent of disease patient and family have decided on hospice care. They are waiting to be discharged home with hospice services. All of this was discussed with primary oncologist as well. I thank you for the consult. - Time Spent With Patient Time Spent with Patient (in minutes): 15
--- NOTE | 2024-03-23 14:49 | MHC.CM.PN ---
IMM 03/23/24, Pt had eval from [facility] / Hospice today. She lives with family, who take care of her. DCP is home with family and [facility] hospice, anticipate DC on 03/24/24.
[2024-03-23] MEDS: Melatonin 3 MG TABLET 6 MG PO (22:38)
[2024-03-24 04:00] VITALS: BP 135/85; PULSE 98; RESP 18; TEMP 36.5; O2SAT 96
[2024-03-24 07:28] VITALS: BP 141/85; PULSE 99; RESP 14; TEMP 36.5; O2SAT 98
--- NOTE | 2024-03-24 07:50 | PM.DS ---
DS: Providers Provider Date of Service: 03/24/24 Date of admission: 03/22/24 05:10 Primary care physician: Adam Gil MD Consults: 03/22/24 10:47 Consult to Hematology / Oncology Routine Consulting Provider: [facility] Oncology/Hematology Reason for consultation: patient admitted for encephalopathy DS: Diagnosis Discharge Diagnosis (1) Lung cancer metastatic to brain: Status: Acute DS: Summary Hospital Course Hospital Course: History and physical as per admitting provider. Tanja Zaman is a 63 years old woman with past medical history significant for metastatic lung disease to the brain, seizure disorder, hyperlipidemia, COPD/asthma and chronic pain on oxycodone was brought to the emergency department after she was found unresponsive by her family. HPI was obtained from ED provider and chart review as the patient asked me to leave because she wanted to sleep. According to ED provider the patient presented to the emergency department unresponsive suspecting overdose with Percocet//oxycodone. Her pupils was pinpoint and she received treatment with intranasal cannula by EMS with good response. It was commented that the patient was incontinent of urine, suspecting seizures. Poison control was contacted. It seems like later on the patient became combative and received multiple medications to calm her down in order to perform a head CT scan. These medications are: Zyprexa 10 mg IM, Ativan 2 mg IV (total), droperidol 1.25 mg IV and Versed 2 mg IV. The patient also was loaded with Keppra 500 mg IV. In the ED she was found to have stable vital signs. Blood workup showed no leukocytosis. Hemoglobin and platelets are normal. There are no electrolyte imbalances. Renal and LFTs are normal. UA showed no evidence of UTI. Urine drug screen is positive for oxycodone. Salicylates level < 5.0. ETOH level is undetectable. Head CT scan showed no overt evidence of acute intracranial hemorrhage. 63-year-old woman with history of metastatic small-cell lung cancer treated with palliative chemotherapy presenting with encephalopathy and found to have brain metastasis. She was treated mainly with supportive care during hospitalization, narcotic medications were held, she became more awake and somewhat lucid but still with some confusion. After discussion with her family they have decided to take her home on hospice due to her poor prognosis with brain metastasis at this point. She was awake and conversive and has been able to eat. She and her family had a hospice meeting during hospitalization and plan is to discharge today. She was seen and evaluated by her primary oncologist during hospitalization and agrees with plan. Time Attestation Discharge Coordination Time (in mins): 36 Quality: Safe Use of Opioids Does Pt have an Active Cancer Diagnosis on the Problem List?: No Quality: Stroke Does the patient have a stroke diagnosis?: No Physical Exam Vital Signs: Vital Signs: Last Vital Signs Temp 97.7 F 03/24/24 07:28 Pulse 99 03/24/24 07:28 Resp 14 03/24/24 07:28 BP 141/85 H 03/24/24 07:28 Pulse Ox 98 03/24/24 07:28 O2 Del Method Room Air 03/24/24 07:28 BMI result Body Mass Index 17.3 Appearing in no acute distress head is normocephalic atraumatic eyes pupils are PERRLA sclera is anicteric mouth throat mucous membranes are intact and moist neck is supple no lymphadenopathy, no JVD noted lung sounds are clear to auscultation heart regular rate rhythm, clear S1, S2 positive bowel sounds, abdomen is soft, nontender neuro patient is alert, confused Discharge Plan Discharge Anticipated Discharge Date/Time: 03/24/24 07:47 Patient Disposition: Hospice - Home Discharge Diagnosis: Encephalopathy secondary to brain metastasis and narcotic use Small-cell lung cancer Referrals: [facility] [Outside] - 1 Week Adam Gil MD [Primary Care Provider] - 1 Week Discharge Medications: Continued (DME) wheelchair with leg and foot rests See Rx Instructions .Route .MEDSUPPLY Qty: 1 0RF Rx Instructions: As directed cholecalciferol (vitamin D3) 50 mcg (2,000 unit) capsule 50 mcg PO DAILY Qty: 90 1RF Prolia 60 mg/mL syringe 60 mg subcut [id number] Qty: 1 4RF Rx Instructions: to be injected in office (DME) hospital bed Kit See Rx Instructions .Route Qty: 1 0RF Rx Instructions: Semi electric hospital bed with 1/2 rails and air mattress overlay 5'7 , 100 lbs simvastatin 80 mg tablet 80 mg PO DAILY 90 Days Qty: 90 1RF albuterol sulfate 90 mcg/actuation HFA aerosol inhaler 1 puff inhalation QID PRN (Reason: for wheezing) Qty: 6.7 0RF (DME) Wheel chair Kit Qty: 1 0RF Rx Instructions: As Directed oxycodone 5 mg Tablet 5 mg PO Q6H PRN (Reason: Breakthrough Pain, Moderate) Qty: 60 0RF Rx Instructions: Partial Fill upon patient request. ondansetron 8 mg Tablet,Disintegrating 8 mg PO Q8H Qty: 60 3RF lorazepam 0.5 mg Tablet 0.5 mg PO BID PRN (Reason: Anxiety) Qty: 60 0RF mirtazapine 15 mg tablet 15 mg PO DAILY folic acid 1 mg tablet 1 mg PO DAILY (DME) Updraft machine See Rx Instructions .Route .MEDSUPPLY Qty: 1 0RF Rx Instructions: As directed albuterol sulfate 2.5 mg /3 mL (0.083 %) solution for nebulization 2.5 mg inhalation Q4H PRN (Reason: bronchospasm) 90 Days Qty: 90 0RF escitalopram oxalate 20 mg tablet 20 mg PO DAILY (DME) Wheelchair See Rx Instructions .Route .MEDSUPPLY Qty: 1 0RF Rx Instructions: As directed levetiracetam 500 mg tablet 500 mg PO BID calcium citrate 250 mg calcium tablet 500 mg PO BID Qty: 360 4RF Anoro Ellipta 62.5-25 mcg/actuation blister with device 1 inh inhalation DAILY 30 Days Qty: 1 6RF Discharge Orders: Discharge Order (Routine); Ordered 03/24/24 Ordered By: Darlene Carter Diet: Advance to usual diet Activity on Discharge: As tolerated Stand Alone Forms: Patient Portal Discharge page Print Language: Bahamian Care Plan Goals: Transition home with hospice care Health Concerns: Encephalopathy secondary to brain metastasis and narcotic use Small-cell lung cancer Plan of Treatment: Follow-up with primary care provider as needed Take all medications as prescribed Assessment: See discharge summary
[2024-03-24] MEDS: Folic Acid 1 MG TABLET PO (08:13)
[2024-03-24] MEDS: Escitalopram Oxalate 20 MG TABLET PO (08:13)
[2024-03-24] MEDS: Calcium Oyster Shell Elemental 500 MG TABLET PO (08:13)
[2024-03-24] MEDS: Atorvastatin Calcium 40 MG TABLET PO (08:13)
[2024-03-24] MEDS: Cholecalciferol (Vitamin D3) 25 MCG TABLET 50 MCG PO (08:13)
[2024-03-24] MEDS: Enoxaparin Sodium 30 MG/0.3 ML SYRINGE SUBCUT (08:13)
[2024-03-24] MEDS: Mirtazapine 15 MG TABLET PO (08:13)
--- NOTE | 2024-03-24 09:34 | MHC.CM.PN ---
Pt has been medically cleared for DC. She will go home today via S and have family caregivers and Hospice from [facility].
[2024-03-24] MEDS: levETIRAcetam in NaCl (iso-os) 500 MG/100 ML PIGGYBACK 100 MG IV (09:54)
[2024-03-24] MEDS: Heparin Sodium,Porcine Flush 50 UNITS, 0.9 % Sodium Chloride Flush 5 ML IVFLUSH (10:58)
[2024-03-24 11:07] VITALS: BP 145/103; PULSE 102; RESP 14; TEMP 36.4; O2SAT 98
[2024-03-24 20:28] LABS: Levetiracetam Keppra 12.9 mcg/mL (6.0-46.0)
== END 2024-03-24 11:38 | disposition hospice, home (50) | DRG 917 ==
LOC: HO.ED 03-22 02:08 → HO.EDOVER 03-22 05:18 → HO.IMC 03-22 14:45
PROVIDERS: Physician Assistant Medical; Admitting Provider Internal Medicine; Emergency Provider Emergency Medicine Emergency Medical Services; PCP Internal Medicine; Visit Provider Nurse Practitioner Acute Care
DX: T40.2X1A Poisoning by other opioids, accidental (unintentional), initial encounter (principal); G93.41 Metabolic encephalopathy; E44.0 Moderate protein-calorie malnutrition; Z68.1 Body mass index [BMI] 19.9 or less, adult; C34.02 Malignant neoplasm of left main bronchus; Z51.5 Encounter for palliative care; C79.31 Secondary malignant neoplasm of brain; J45.40 Moderate persistent asthma, uncomplicated; J44.9 Chronic obstructive pulmonary disease, unspecified; G40.909 Epilepsy, unspecified, not intractable, without status epilepticus; E78.5 Hyperlipidemia, unspecified; F32.A Depression, unspecified; Z79.899 Other long term (current) drug therapy
CPT/HCPCS: 36415; 70450; 80048; 80053; 80143; 80177; 80179; 80307; 81001; 83690; 83735; 85025; 85027; 92610; 97116; 97162; 99285; J1642; J1650; J1790; J1953; J2060; J2250; J2359

== ENCOUNTER → 2024-03-22 05:10 | Outpatient (BNV) | payer OTHER, SELFPAY | PROVIDERS: Admitting Provider Internal Medicine; Emergency Provider Emergency Medicine Emergency Medical Services; PCP Internal Medicine; Visit Provider Internal Medicine | DX: C34.90 Malignant neoplasm of unspecified part of unspecified bronchus or lung (principal); C79.31 Secondary malignant neoplasm of brain | CPT/HCPCS: 99221 ==

== ENCOUNTER → 2024-03-22 05:10 | Outpatient (BNV) | payer OTHER, SELFPAY | PROVIDERS: Admitting Provider Internal Medicine; Emergency Provider Emergency Medicine Emergency Medical Services; Visit Provider Internal Medicine | DX: C34.90 Malignant neoplasm of unspecified part of unspecified bronchus or lung (principal); C79.31 Secondary malignant neoplasm of brain | CPT/HCPCS: 99223; 99232; 99239; 99499 ==